=== PATIENT | male | born 1940 | race Caucasian/White ===

== ENCOUNTER 2019-11-07 13:34 | Outpatient (CLI) | payer MEDICARE, MEDICAID, SELFPAY ==
--- NOTE | 2019-11-07 13:51 | USCV_ITS ---
Mendel Jansen Age: 78 Gender: M : 1940 Exam Date: 11/07/2019 14:39 Ordering Phys: Lina Ramon MD Technologist: Jono Zamudio Exam Location: [facility] [place] Indication: murmur BP: 142 / 84 HR: 71 Rhythm: Sinus Technical Quality: Fair MEASUREMENTS (Male / Female) Normal Values 2D ECHO LV Diastolic Diameter PLAX 4.1 cm 4.2 - 5.9 / 3.9 - 5.3 cm LV Systolic Diameter PLAX 2.3 cm IVS Diastolic Thickness 0.9 cm 0.6 - 1.0 / 0.6 - 0.9 cm IVS Systolic Thickness 1.1 cm LVPW Diastolic Thickness 0.7 cm 0.6 - 1.0 / 0.6 - 0.9 cm LVPW Systolic Thickness 1.1 cm LVOT Diameter 2.0 cm LV Ejection Fraction 2D Teich 75.9 % LV Ejection Fraction MOD 2C 65.7 % LV Ejection Fraction 2C AL 68.1 % LA Diameter 3.7 cm LA Width 3.1 cm LA Height 4.8 cm RA Width 2.8 cm RA Height 4.0 cm Aorta at Sinotubular Diameter 2.3 cm M-MODE LV Diastolic Diameter MM 4.7 cm 4.2 - 5.9 / 3.9 - 5.3 cm LV Systolic Diameter MM 3.1 cm LV Ejection Fraction MM Teich 64.8 % IVS Diastolic Thickness MM 0.6 cm 0.6 - 1.0 / 0.6 - 0.9 cm IVS Systolic Thickness MM 1.1 cm LVPW Diastolic Thickness MM 0.8 cm 0.6 - 1.0 / 0.6 - 0.9 cm LVPW Systolic Thickness MM 1.4 cm RV Diastolic Diameter MM 1.1 cm Aortic Annulus Diameter 3.0 cm LA Ao Ratio MM 1.2 MV E Point Septal Separation 0.6 cm DOPPLER AV Peak Velocity 175.0 cm/s LVOT Peak Velocity 130.0 cm/s AV Area Cont Eq vti 2.5 cm squared AV Area Cont Eq pk 2.4 cm squared MV Area PHT 3.1 cm squared Mitral E to A Ratio 0.8 MV E' Velocity 8.0 cm/s Mitral E to MV E' Ratio 10.6 Mitral E to LV E' Lateral Ratio 10.6 Mitral E to LV E' Septal Ratio 10.6 TR Peak Velocity 149.0 cm/s TR Peak Gradient 8.8 mmHg TV Peak E Velocity 64.0 cm/s Right Atrial Pressure 3.0 mmHg Pulmonary Artery Systolic Pressu 11.9 mmHg FINDINGS Left Ventricle Normal left ventricular size and systolic function, EF 73 %. Mild left ventricular hypertrophy. No regional wall motion abnormalities. Right Ventricle Normal right ventricular size and systolic function. Right Atrium Normal right atrial size. Left Atrium Normal left atrial size. Mitral Valve Thickened mitral valve. Mild mitral annular calcification. Aortic Valve Thickened aortic valve. Aortic valve sclerosis. Tricuspid Valve No gross abnormalities noted Pulmonic Valve Pulmonic valve not well visualized. Pericardium No pericardial effusion. Aorta Normal aortic annulus size. CONCLUSIONS Normal left ventricular size and systolic function, EF 73 %. Mild left ventricular hypertrophy. No regional wall motion abnormalities. Thickened mitral valve. Mild mitral annular calcification. Aortic valve sclerosis. There is no pericardial effusion. No significant stenotic or regurgitant lesions There are no intracardiac masses. No previous study is available for comparison. Dr Sabi White MD FAC (Electronically Signed) Final Date: 08 November 2019 14:03 S
== END 2019-11-07 13:35 | disposition home or self-care (01) ==
LOC: RAD 13:46
PROVIDERS: Family Provider Internal Medicine; PCP Internal Medicine; Visit Provider Internal Medicine
DX: I08.3 Combined rheumatic disorders of mitral, aortic and tricuspid valves (principal); R01.1 Cardiac murmur, unspecified
CPT/HCPCS: 93306

== ENCOUNTER 2021-04-30 12:33 | Outpatient (CLI) | payer MEDICARE, MEDICAID, SELFPAY ==
--- NOTE | 2021-04-30 12:00 | CT_ITS ---
WS: [id number] CT ABDOMEN PELVIS TECHNIQUE: Contrast-enhanced CT of the abdomen and pelvis with coronal and sagittal reformatted image s. CLINICAL INFORMATION: LLQ PAIN AND ABNORMAL WEIGHT LOSS COMPARISON: None. DLP: 1041.[address] scans at [facility] use at least one of these dose optimization techniques: automat ed exposure control; mA and/or kV adjustment per patient size (includes targeted exams where dose is matched to clinical indication); or iterative reconstruction. FINDINGS: Small right pleural effusion with compressive atelectasis right lower lobe. Patchy infiltrates in the right lower lobe consistent with pneumonia. Tiny amount of patchy infiltrate or atelectasis left low er lobe. Small amount of fluid along the right fissure. Partially visualized small pericardial effusion. Diffuse fatty infiltration of the liver. Left hepati c cyst measuring 11 mm. Additional adjacent tiny suspected hepatic cyst measuring 3.8 mm and too smal l to characterize. A few additional tiny low-attenuation lesions right hepatic lobe too small to brittaney acterize but may represent hepatic cysts. A few prominent but not pathologically enlarged retrocrural lymph nodes. Normal portal vein and splenic vein. A few low-attenuation lesions in the inferior aspect of the sple en nonspecific but may represent combination of hepatic cysts, hemangiomas, sequelae of prior infarc ts or prior laceration. No surrounding fluid. Small esophageal hiatal hernia. Normal pancreas. Gallbladder is normal in appearance. Adrenal glands are normal. Normal renal parenchymal enhancement. No hydronephrosis. Small bilateral r enal cysts largest lower pole left kidney measuring 2.7 cm. Moderate aortic atheromatous disease. Infrarenal abdominal aortic aneurysm with peripheral mural thro mbus with calcification. Aneurysm measures approximately 3.4 x 3.6 x 5.5 CM AP x transverse x cranioc audal. Slightly prominent and shotty periotic lymph nodes measuring 8 to 9 mm in maximum dimension. T hese are nonspecific but may be reactive not pathologically enlarged. Urine distended bladder with prominent prostate measuring 4.1 cm. Correlation PSA. Evidence of bladde r outlet obstruction with bladder wall thickening No evidence of small or large bowel obstruction. No rmal lumbar spine. CT/CT abdomen pelvis w con* [id number] IMPRESSION: 1. Small right pleural effusion with patchy infiltrates in right lower lobe co nsistent with pneumonia. 2. Diffuse fatty infiltration of the liver with a few low-attenuation lesions likely hepatic cysts and/or hemangiomas. This can be followed up with ultrasoun d. 3. Infrarenal lobulated abdominal aortic aneurysm measuring 3.4 x 3.6 x 5.5 cm AP by transverse by craniocaudal. Dense vascular calcification with peripheral mural thrombus. 4. Small pericardial effusion. 5. Small esophageal hiatal hernia. 6. Left renal cyst measuring 2.7 cm. 7. Low-attenuation lesions in the inferior aspect of the spleen nonspecific bu t may represent a combination of hepatic cysts, hemangiomas, or sequelae from p rior infarcts or laceration. No surrounding fluid. Ultrasound may be helpful in further evaluation. 8. Urine distended bladder with prominent prostate measuring 4.1 cm. Correlati on PSA. Evidence of bladder outlet obstruction with bladder wall thickening. 9. Slightly prominent and shotty periotic lymph nodes measuring 8 to 9 mm in m aximum dimension. These are nonspecific but may be reactive not pathologically enlarged. This could be followed up in 3 months with contrast-enhanced CT abdom en pelvis.
[2021-04-30] MEDS: iohexol 300 mg/mL 50 mL Btl PO (13:45)
[2021-04-30] MEDS: iohexol 300 mg/mL 100 mL Btl IV (13:52)
== END 2021-04-30 12:34 | disposition home or self-care (01) ==
LOC: RADWPI 12:41
PROVIDERS: PCP Internal Medicine; Visit Provider Internal Medicine
DX: R10.32 Left lower quadrant pain (principal); R63.4 Abnormal weight loss; J90 Pleural effusion, not elsewhere classified; K76.0 Fatty (change of) liver, not elsewhere classified; I71.4 Abdominal aortic aneurysm, without rupture; I31.3 Pericardial effusion (noninflammatory); N28.1 Cyst of kidney, acquired; N40.0 Benign prostatic hyperplasia without lower urinary tract symptoms
CPT/HCPCS: 74177; Q9967

== ENCOUNTER 2021-05-06 09:55 | Inpatient (IN) | payer MEDICARE, MEDICAID, SELFPAY ==
[2021-05-06] VITALS (14 sets, daily range): BP systolic 82–134; BP diastolic 50–78; PULSE 104–117; RESP 16–26; TEMP 36.6–36.9; O2SAT 84–98; BMI 18.8
--- NOTE | 2021-05-06 10:04 | XR_ITS ---
WS: [id number] Portable AP upright chest, 05/06/2021 Clinical Data: dyspnea/cough Comparison: Portable chest, 09/12/2011. Findings: There is a 4.0 cm right hilar mass with peripheral linear opacities throughout the right matthew ng. The left lung is normal. The heart is not enlarged. The aortic arch and descending aorta show sadiq cification and tortuosity. No pneumothorax or pleural effusions are seen. Monitor leads are on the ch est wall. There are surgical clips in the left supraclavicular area. XR/XR chest 1V portable [id number] Impression: 1. 4.0 cm right hilar mass with peripheral linear opacities which could represe nt obstructive pneumonitis. 2. Recommend CT chest.
--- NOTE | 2021-05-06 10:05 | ECG_ITS ---
[facility] Test Date: 2021-05-06 Pat Name: Mendel Jansen Department: Room: Gender: Male Grizzlyman: : 1940 Requested By: Jerry Hoskins Order Number: [id number] Rogelio MD: Bettie York M.D. Measurements Intervals [place] Rate: 111 P: 66 SC: 158 QRS: 51 QRSD: 92 T: 61 QT: 328 QTc: 448 Interpretive Statements SINUS TACHYCARDIA WITH OCCASIONAL SUPRAVENTRICULAR PREMATURE COMPLEXES No previous ECG available for comparison Electronically Signed On 05-06-2021 21:45:17 CDT by Bettie York M.D. [id number]
--- NOTE | 2021-05-06 10:19 | ED_ITS ---
HPI - Altered Mental Status General: Chief Complaint: Altered Mental Status Stated Complaint: AMS Time Seen by Provider: 05/06/21 10:03 History of Present Illness: HPI narrative: 80-year-old male presents emergency room via EMS. He evidently had called his doctor's office today seemed very confused so they called EMS to do health and welfare check and he was brought into the ER. He denies any chest pain he denies any abdominal pain he denies any discomfort at all he is aware the fact that he is somewhat confused cannot give me any more specifics on that. He denies any recent trauma. No cough fever sweats chills diarrhea nausea or vomiting. MD complaint: altered mental status and confusion Onset (ago): unknown Timing confirmed by: other (PCP office) Severity: moderate Consistency of symptoms: Unknown Associated symptoms: Deny auditory hallucinations, visual hallucinations, delusions, depression or racing thoughts Review of Systems Const: Denies: fever(s), chills, body aches, change in appetite, fatigue or malaise ENMT: Denies: throat pain, ear or mastoid pain, nasal discharge or nasal congestion Card: Denies: chest pain, edema, dyspnea on exertion or orthopnea Resp: Denies: dyspnea, productive cough or non-productive cough GI: Denies: abdominal pain, nausea, vomiting, hematemesis, coffee ground emesis, diarrhea, constipation, bloating, hematochezia or melena : Denies: flank pain, dysuria, urinary frequency or urinary urgency Skin/Breast: Denies: rash or pruritus Psych: Denies: depression, visual hallucinations or auditory hallucinations [facility] ED PFSH: Medical History Abdominal aortic aneurysm (AAA) 30 to 34 mm in diameter Hyperlipidemia Hypertension Metabolic acidosis Family History Denies family history of Diabetes Chronic kidney disease (CKD) Social History Smoking and tobacco status: former smoker Alcohol intake: former Lives independently: Yes Household members: none Housing: House Physical Exam Const: COMMON NORMALS: no acute distress GENERAL APPEARANCE: cooperative and comfortable HENMT: COMMON NORMALS: normocephalic, atraumatic, hearing grossly normal bilaterally and external ears normal HEAD & SCALP: normocephalic and atraumatic EXTERNAL EAR: Yes external ears normal Eye: COMMON NORMALS: Equal, round and reactive pupils present, EOMs intact bilaterally, conjunctivae normal and no scleral icterus CONJUNCTIVA: Yes conjunctivae normal PUPIL: Yes Equal, round and reactive pupils present Neck/C-Spine: COMMON NORMALS: full ROM, no lymphadenopathy, supple and no JVD Lymph: LYMPHATIC: no lymphadenopathy noted and no lymphedema noted Resp: COMMON NORMALS: normal respiratory effort, No retractions, No use of a ccessory muscles and clear to auscultation bilaterally AUSCULTATION: clear to auscultation bilaterally Cardio: COMMON NORMALS: no JVD, regular rate, regular rhythm and No murmurs present (Cardio) RATE: regular rate RHYTHM: regular rhythm GI: COMMON NORMALS: Soft to palpation and No hepatosplenomegaly present AUSCULTATION: Yes normoactive bowel sounds PALPATION: Yes Soft to palpation, No Tenderness to palpation present (GI), No Guarding due to palpation present (GI) and Yes No hepatosplenomegaly present Extremity: COMMON NORMALS: normal to inspection, capillary refill normal, no clubbing, cyanosis or edema, no calf tenderness and no pedal edema Psych: THOUGHT CONTENT: No delusions Skin: COMMON NORMALS: no rashes or lesions noted GENERAL SKIN EXAM: no rashes or lesions noted Course Vital Signs: Vital signs: Vital Signs Temperature 97.9 F 05/09/21 15:40 Pulse Rate 100 05/09/21 16:04 Respiratory Rate 25 H 05/09/21 15:40 Blood Pressure 116/63 05/09/21 15:40 Pulse Oximetry 92 05/09/21 15:40 MDM - Altered Mental Status MDM Narrative: Medical decision making narrative: Cussed with Dr. Long admit for sepsis cystitis acute urinary retention acute kidney injury pneumonia metabolic encephalopathy. Lab Data: Attestation: I reviewed the patient's lab results. Labs: Lab Results 05/06/21 05/06/21 05/06/21 Range/Units 10:26 10:26 10:26 WBC 14.0 H (4.0-10.0) 10^3/ uL RBC 4.08 L (4.1-5.3) 10^6/u L Hgb 12.2 (11.7-16.6) g/dL Hct 38.4 L (42.0-52.0) % MCV 94.1 H (80-94) fL MCH 29.9 (28.0-34.0) pg MCHC 31.8 (30.0-36.0) g/dL RDW 13.6 (12.1-15.1) % Plt Count 224 (130-400) 10^3/c mm MPV 11.6 H (7.4-10.4) fL Neut % (Auto) 82.0 % Lymph % (Auto) 8.1 % Crenshaw % (Auto) 7.1 % Eos % (Auto) 0.5 % Baso % (Auto) 0.5 % Neut # (Auto) 11.52 H (1.8-7.7) 10^3/u L Lymph # (Auto) 1.1 (0.8-4.8) 10^3/u L Crenshaw # (Auto) 1.0 H (0.2-0.9) 10^3/u L Eos # (Auto) 0.1 (0.0-0.8) 10^3/u L Baso # (Auto) 0.1 (0.0-0.1) 10^3/u L Nucleated RBC % (a uto) 0 % Nucleated RBCs # 0.0 /100WBC Specimen Type Sample Site ABG pH (7.35-7.45) ABG pCO2 (35-45) mmHg ABG pO2 (80.0-100.0) mmH g ABG HCO3 (22-26) mmol/L ABG O2 Saturation ABG Base Excess (-2.0-2.0) mmol/ L Agustín Test A-a O2 Gradient (5-10) mmHg Hematocrit (42-52) % Hgb O2 Saturation (95-100) % Carboxyhemoglobin (0.4-20.1) %THgb Methemoglobin (0.4-1.5) % Total Hemoglobin (14-18) g/dL Ionized Calcium (1.1-1.4) mmol/L O2 Delivery Device FiO2 % Housing And Residence Life Director ID Sodium 134 L (136-145) mmol/L Potassium 3.9 (3.5-5.1) mmol/L Chloride 96 L (98-107) mmol/L Carbon Dioxide 17 L (22-29) mmol/L Anion Gap 24.9 H (5-19) BUN 123 H* (8-23) mg/dL Creatinine 3.0 H (0.7-1.2) mg/dL GFR Calculation Not Reportable Glucose 107 (65-115) mg/dL Calculated Osmolal ity 318 H (285-295) mOsm/k g Lactic Acid (0.5-2.2) mmol/L Calcium 8.0 L (8.5-10.5) mg/dL Total Bilirubin 0.5 (0.15-1.2) mg/dL AST 14 (0-40) U/L ALT 10 (0-41) U/L Alkaline Phosphata se 89 (40-130) IU/L Creatine Kinase 68 (39-308) U/L Troponin T Baselin e 677 H* (0-15) ng/L Troponin T 120 Min [place] (0-15) ng/L Delta Troponin T (0-10) ABS# Total Protein 7.6 (6.6-8.7) g/dL Albumin 3.1 L (3.5-5.2) g/dL Globulin 4.5 (1.3-4.6) g/dL Lipase 96 H (13-60) U/L Urine Color (Yellow) Urine Appearance (CLEAR) Urine pH (5-7) Ur Specific Gravit y (1.005-1.030) Urine Protein (Negative) Urine Glucose (UA) (Normal) Urine Ketones (Negative) Urine Blood (Negative) Urine Nitrate (Negative) Urine Bilirubin (Negative) Urine Urobilinogen (Negative) mg/dL Ur Leukocyte Latasha ase (Negative) Urine RBC (0-2) /hpf Urine WBC (0-5) /hpf Ur Squamous Epith Cells (0-5) /hpf Amorphous Sediment Urine Bacteria (NONE) /hpf Ur Random Sodium mmol/L Ur Random Potassiu m mmol/L Ur Random Chloride mmol/L Urine Creatinine (39-259) mg/dL Urine Opiates Scre en (Negative) ng/mL Ur Barbiturates Sc reen (Negative) ng/mL Ur Phencyclidine S crn (Negative) ng/mL Ur Amphetamines Sc reen (Negative) ng/mL U Benzodiazepines Scrn (Negative) ng/mL Urine Cocaine Scre en (Negative) ng/mL U Marijuana (THC) Screen (Negative) ng/mL Serum Ketones (Negative) 05/06/21 05/06/21 05/06/21 Range/Units 10:26 10:26 10:42 WBC (4.0-10.0) 10^3/ uL RBC (4.1-5.3) 10^6/u L Hgb (11.7-16.6) g/dL Hct (42.0-52.0) % MCV (80-94) fL MCH (28.0-34.0) pg MCHC (30.0-36.0) g/dL RDW (12.1-15.1) % Plt Count (130-400) 10^3/c mm MPV (7.4-10.4) fL Neut % (Auto) % Lymph % (Auto) % Crenshaw % (Auto) % Eos % (Auto) % Baso % (Auto) % Neut # (Auto) (1.8-7.7) 10^3/u L Lymph # (Auto) (0.8-4.8) 10^3/u L Crenshaw # (Auto) (0.2-0.9) 10^3/u L Eos # (Auto) (0.0-0.8) 10^3/u L Baso # (Auto) (0.0-0.1) 10^3/u L Nucleated RBC % (a uto) % Nucleated RBCs # /100WBC Specimen Type Arterial Sample Site Brachial, right ABG pH 7.39 (7.35-7.45) ABG pCO2 27.9 L (35-45) mmHg ABG pO2 59.6 L (80.0-100.0) mmH g ABG HCO3 17.0 L (22-26) mmol/L ABG O2 Saturation 90.1 ABG Base Excess -6.5 L (-2.0-2.0) mmol/ L Agustín Test N/a A-a O2 Gradient 7.2 (5-10) mmHg Hematocrit 38.8 L (42-52) % Hgb O2 Saturation 88.6 L (95-100) % Carboxyhemoglobin 1.0 (0.4-20.1) %THgb Methemoglobin 0.6 (0.4-1.5) % Total Hemoglobin 12.6 L (14-18) g/dL Ionized Calcium 1.1 (1.1-1.4) mmol/L O2 Delivery Device Room air FiO2 21.0 % Housing And Residence Life Director ID Amh Sodium 139.0 (136-145) mmol/L Potassium 3.9 (3.5-5.1) mmol/L Chloride (98-107) mmol/L Carbon Dioxide (22-29) mmol/L Anion Gap (5-19) BUN (8-23) mg/dL Creatinine (0.7-1.2) mg/dL GFR Calculation Glucose 120.0 H (65-115) mg/dL Calculated Osmolal ity (285-295) mOsm/k g Lactic Acid 2.3 H (0.5-2.2) mmol/L Calcium (8.5-10.5) mg/dL Total Bilirubin (0.15-1.2) mg/dL AST (0-40) U/L ALT (0-41) U/L Alkaline Phosphata se (40-130) IU/L Creatine Kinase (39-308) U/L Troponin T Baselin e (0-15) ng/L Troponin T 120 Min [place] (0-15) ng/L Delta Troponin T (0-10) ABS# Total Protein (6.6-8.7) g/dL Albumin (3.5-5.2) g/dL Globulin (1.3-4.6) g/dL Lipase (13-60) U/L Urine Color (Yellow) Urine Appearance (CLEAR) Urine pH (5-7) Ur Specific Gravit y (1.005-1.030) Urine Protein (Negative) Urine Glucose (UA) (Normal) Urine Ketones (Negative) Urine Blood (Negative) Urine Nitrate (Negative) Urine Bilirubin (Negative) Urine Urobilinogen (Negative) mg/dL Ur Leukocyte Latasha ase (Negative) Urine RBC (0-2) /hpf Urine WBC (0-5) /hpf Ur Squamous Epith Cells (0-5) /hpf Amorphous Sediment Urine Bacteria (NONE) /hpf Ur Random Sodium mmol/L Ur Random Potassiu m mmol/L Ur Random Chloride mmol/L Urine Creatinine (39-259) mg/dL Urine Opiates Scre en (Negative) ng/mL Ur Barbiturates Sc reen (Negative) ng/mL Ur Phencyclidine S crn (Negative) ng/mL Ur Amphetamines Sc reen (Negative) ng/mL U Benzodiazepines Scrn (Negative) ng/mL Urine Cocaine Scre en (Negative) ng/mL U Marijuana (THC) Screen (Negative) ng/mL Serum Ketones Negative (Negative) 05/06/21 05/06/21 05/06/21 Range/Units 12:28 12:30 12:30 WBC (4.0-10.0) 10^3/ uL RBC (4.1-5.3) 10^6/u L Hgb (11.7-16.6) g/dL Hct (42.0-52.0) % MCV (80-94) fL MCH (28.0-34.0) pg MCHC (30.0-36.0) g/dL RDW (12.1-15.1) % Plt Count (130-400) 10^3/c mm MPV (7.4-10.4) fL Neut % (Auto) % Lymph % (Auto) % Crenshaw % (Auto) % Eos % (Auto) % Baso % (Auto) % Neut # (Auto) (1.8-7.7) 10^3/u L Lymph # (Auto) (0.8-4.8) 10^3/u L Crenshaw # (Auto) (0.2-0.9) 10^3/u L Eos # (Auto) (0.0-0.8) 10^3/u L Baso # (Auto) (0.0-0.1) 10^3/u L Nucleated RBC % (a uto) % Nucleated RBCs # /100WBC Specimen Type Sample Site ABG pH (7.35-7.45) ABG pCO2 (35-45) mmHg ABG pO2 (80.0-100.0) mmH g ABG HCO3 (22-26) mmol/L ABG O2 Saturation ABG Base Excess (-2.0-2.0) mmol/ L Agustín Test A-a O2 Gradient (5-10) mmHg Hematocrit (42-52) % Hgb O2 Saturation (95-100) % Carboxyhemoglobin (0.4-20.1) %THgb Methemoglobin (0.4-1.5) % Total Hemoglobin (14-18) g/dL Ionized Calcium (1.1-1.4) mmol/L O2 Delivery Device FiO2 % Housing And Residence Life Director ID Sodium (136-145) mmol/L Potassium (3.5-5.1) mmol/L Chloride (98-107) mmol/L Carbon Dioxide (22-29) mmol/L Anion Gap (5-19) BUN (8-23) mg/dL Creatinine (0.7-1.2) mg/dL GFR Calculation Glucose (65-115) mg/dL Calculated Osmolal ity (285-295) mOsm/k g Lactic Acid (0.5-2.2) mmol/L Calcium (8.5-10.5) mg/dL Total Bilirubin (0.15-1.2) mg/dL AST (0-40) U/L ALT (0-41) U/L Alkaline Phosphata se (40-130) IU/L Creatine Kinase (39-308) U/L Troponin T Baselin e (0-15) ng/L Troponin T 120 Min [place] 633.6 H (0-15) ng/L Delta Troponin T -43.4 L (0-10) ABS# Total Protein (6.6-8.7) g/dL Albumin (3.5-5.2) g/dL Globulin (1.3-4.6) g/dL Lipase (13-60) U/L Urine Color Yellow (Yellow) Urine Appearance Clear (CLEAR) Urine pH 5 (5-7) Ur Specific Gravit y 1.020 (1.005-1.030) Urine Protein Trace (Negative) Urine Glucose (UA) Norm (Normal) Urine Ketones 1+ H (Negative) Urine Blood 3+ H (Negative) Urine Nitrate Positive H (Negative) Urine Bilirubin Neg (Negative) Urine Urobilinogen Norm (Negative) mg/dL Ur Leukocyte Latasha ase 1+ H (Negative) Urine RBC 5-10 H (0-2) /hpf Urine WBC 0-4 H (0-5) /hpf Ur Squamous Epith Cells 0-4 H (0-5) /hpf Amorphous Sediment Not Reportable Urine Bacteria 3+ H (NONE) /hpf Ur Random Sodium 47 mmol/L Ur Random Potassiu m 37 mmol/L Ur Random Chloride 19 mmol/L Urine Creatinine (39-259) mg/dL Urine Opiates Scre en Negative (Negative) ng/mL Ur Barbiturates Sc reen Negative (Negative) ng/mL Ur Phencyclidine S crn Negative (Negative) ng/mL Ur Amphetamines Sc reen Negative (Negative) ng/mL U Benzodiazepines Scrn Negative (Negative) ng/mL Urine Cocaine Scre en Negative (Negative) ng/mL U Marijuana (THC) Screen Negative (Negative) ng/mL Serum Ketones (Negative) 05/06/21 Range/Units 12:30 WBC (4.0-10.0) 10^3/ uL RBC (4.1-5.3) 10^6/u L Hgb (11.7-16.6) g/dL Hct (42.0-52.0) % MCV (80-94) fL MCH (28.0-34.0) pg MCHC (30.0-36.0) g/dL RDW (12.1-15.1) % Plt Count (130-400) 10^3/c mm MPV (7.4-10.4) fL Neut % (Auto) % Lymph % (Auto) % Crenshaw % (Auto) % Eos % (Auto) % Baso % (Auto) % Neut # (Auto) (1.8-7.7) 10^3/u L Lymph # (Auto) (0.8-4.8) 10^3/u L Crenshaw # (Auto) (0.2-0.9) 10^3/u L Eos # (Auto) (0.0-0.8) 10^3/u L Baso # (Auto) (0.0-0.1) 10^3/u L Nucleated RBC % (a uto) % Nucleated RBCs # /100WBC Specimen Type Sample Site ABG pH (7.35-7.45) ABG pCO2 (35-45) mmHg ABG pO2 (80.0-100.0) mmH g ABG HCO3 (22-26) mmol/L ABG O2 Saturation ABG Base Excess (-2.0-2.0) mmol/ L Agustín Test A-a O2 Gradient (5-10) mmHg Hematocrit (42-52) % Hgb O2 Saturation (95-100) % Carboxyhemoglobin (0.4-20.1) %THgb Methemoglobin (0.4-1.5) % Total Hemoglobin (14-18) g/dL Ionized Calcium (1.1-1.4) mmol/L O2 Delivery Device FiO2 % Housing And Residence Life Director ID Sodium (136-145) mmol/L Potassium (3.5-5.1) mmol/L Chloride (98-107) mmol/L Carbon Dioxide (22-29) mmol/L Anion Gap (5-19) BUN (8-23) mg/dL Creatinine (0.7-1.2) mg/dL GFR Calculation Glucose (65-115) mg/dL Calculated Osmolal ity (285-295) mOsm/k g Lactic Acid (0.5-2.2) mmol/L Calcium (8.5-10.5) mg/dL Total Bilirubin (0.15-1.2) mg/dL AST (0-40) U/L ALT (0-41) U/L Alkaline Phosphata se (40-130) IU/L Creatine Kinase (39-308) U/L Troponin T Baselin e (0-15) ng/L Troponin T 120 Min [place] (0-15) ng/L Delta Troponin T (0-10) ABS# Total Protein (6.6-8.7) g/dL Albumin (3.5-5.2) g/dL Globulin (1.3-4.6) g/dL Lipase (13-60) U/L Urine Color (Yellow) Urine Appearance (CLEAR) Urine pH (5-7) Ur Specific Gravit y (1.005-1.030) Urine Protein (Negative) Urine Glucose (UA) (Normal) Urine Ketones (Negative) Urine Blood (Negative) Urine Nitrate (Negative) Urine Bilirubin (Negative) Urine Urobilinogen (Negative) mg/dL Ur Leukocyte Latasha ase (Negative) Urine RBC (0-2) /hpf Urine WBC (0-5) /hpf Ur Squamous Epith Cells (0-5) /hpf Amorphous Sediment Urine Bacteria (NONE) /hpf Ur Random Sodium mmol/L Ur Random Potassiu m mmol/L Ur Random Chloride mmol/L Urine Creatinine 179 (39-259) mg/dL Urine Opiates Scre en (Negative) ng/mL Ur Barbiturates Sc reen (Negative) ng/mL Ur Phencyclidine S crn (Negative) ng/mL Ur Amphetamines Sc reen (Negative) ng/mL U Benzodiazepines Scrn (Negative) ng/mL Urine Cocaine Scre en (Negative) ng/mL U Marijuana (THC) Screen (Negative) ng/mL Serum Ketones (Negative) Discharge Plan Discharge Patient Disposition: Admitted As Inpatient Admit Provider: Nayan Serrano Clinical Impression: Sepsis, Acute urinary retention, Hypertension, LUCRECIA (acute kidney injury), UTI (urinary tract infection), Pneumonia, Metabolic encephalopathy, AMS (altered mental status) Condition: Stable Coding Level of Care Code ED [employer] for [employer]g Fwd Exam Comprehensive
[2021-05-06 10:36] LABS: Basophils # 0.1 10^3/uL (0.0-0.1); Basophils % 0.5 %; Eosinophils # 0.1 10^3/uL (0.0-0.8); Eosinophils % 0.5 %; Hematocrit 38.4 % (42.0-52.0); Hemoglobin 12.2 g/dL (11.7-16.6); Lymphocytes # 1.1 10^3/uL (0.8-4.8); Lymphocytes % 8.1 %; Mean Corpuscular HGB Conc 31.8 g/dL (30.0-36.0); Mean Corpuscular Hemoglobin 29.9 pg (28.0-34.0); Mean Corpuscular Volume 94.1 fL (80-94); Mean Platelet Volume 11.6 fL (7.4-10.4); Monocytes % 7.1 %; Neutrophils # 11.52 10^3/uL (1.8-7.7); Nucleated Red Blood Cells % 0 %; Platelet Count 224 10^3/cmm (130-400); Red Blood Count 4.08 10^6/uL (4.1-5.3); Red Cell Distribution Width 13.6 % (12.1-15.1)
[2021-05-06 10:54] LABS: ABG PCO2 27.9 mmHg (35-45); ABG PH Result 7.39 (7.35-7.45); Alveolar-Arterial Oxygen Gradi 7.2 mmHg (5-10); Arterial Blood Gas Hematocrit 38.8 % (42-52); Base Excess ABG -6.5 mmol/L (-2.0-2.0); Blood Gas Operator Identificat AMH; Blood Gas Sample Site Brachial, right; Blood Gas Sample Type Arterial; HGB O2 Sat 88.6 % (95-100); Ionized Calcium Level - ABG 1.1 mmol/L (1.1-1.4); Methemoglobin 0.6 % (0.4-1.5); Oxygen Device ROOM AIR; Oxygen Saturation ABG 90.1; PO2 ABG 59.6 mmHg (80.0-100.0); Potassium Level - ABG 3.9 mmol/L (3.5-5.0); Total Hemoglobin 12.6 g/dL (14-18)
[2021-05-06 10:55] LABS: Lactic Sepsis W/Reflex 2.3 mmol/L (0.5-2.2)
[2021-05-06 11:00] LABS: Alanine Aminotransferase 10 U/L (0-41); Albumin Level 3.1 g/dL (3.5-5.2); Alkaline Phosphatase 89 IU/L (40-130); Aspartate Amino Transferase 14 U/L (0-40); Carbon Dioxide 17 mmol/L (22-29); Chloride 96 mmol/L (98-107); Creatine Phosphokinase 68 U/L (39-308); Globulin 4.5 g/dL (1.3-4.6); Glucose 107 mg/dL (65-115); Lipase 96 U/L (13-60); Sodium 134 mmol/L (136-145); Total Bilirubin 0.5 mg/dL (0.15-1.2); Total Protein 7.6 g/dL (6.6-8.7)
[2021-05-06 11:01] LABS: Ketone (Acetest) Serum Negative (Negative)
[2021-05-06 11:11] LABS: Troponin(5th) Baseline 677 ng/L (0-15)
[2021-05-06 11:12] LABS: Anion Gap 24.9 (5-19); Osmolality Calculated 318 mOsm/kg (285-295); Potassium 3.9 mmol/L (3.5-5.1)
[2021-05-06 11:13] LABS: Blood Urea Nitrogen 123 mg/dL (8-23)
--- NOTE | 2021-05-06 11:14 | PC.PHAR ---
PT UNABLE TO VERIFY MEDICATIONS-THE MEDICATIONS ENTERED ARE MEDS THAT ARE ON THE PTS MED LIST FROM DR Deb GIPSON OFFICE-WELLBUTRIN XL 150MG DAILY WRITTEN ON 01/16/21 6 REFILLS IS ON THE PTS MED LIST FROM DR GIPSON OFFICE [facility] THEY HAVE THE MEDICATION ON HOLD-[facility] STATES THEY GAVE THE PT A COVID 19 SHOT (MODERNA 1ST DOSE) ON 03/06/21
--- NOTE | 2021-05-06 11:25 | CT_ITS ---
WS: [id number] CT ABDOMEN PELVIS TECHNIQUE: Noncontrast CT of the abdomen and pelvis with coronal and sagittal reformatted images. CLINICAL INFORMATION: acute renal failure COMPARISON: CT April 30, 2021 DLP: 817.[address] scans at [facility] use at least one of these dose optimization techniques: automat ed exposure control; mA and/or kV adjustment per patient size (includes targeted exams where dose is matched to clinical indication); or iterative reconstruction. FINDINGS: Small right pleural effusion with compressive atelectasis right lower lobe. Small pericardial effusio n. Patchy infiltrates in right lower lobe. Recommend correlation for pneumonia. Noncontrast liver is normal. A few hepatic cysts. Noncontrast spleen is normal. Low-attenuation lesio n lower pole spleen is unchanged. Normal GE junction. Fatty atrophy of the pancreas. Infrarenal abdom inal aortic aneurysm is unchanged measuring 3.4 x 3.6 cm AP by transverse. Adrenal glands are normal. No hydronephrosis in either kidney. Both ureters are decompressed. No obst ructing renal or ureteral calculi. Markedly distended urinary bladder with contrast. Enlarged prostat e measuring 4 cm with calcification. Recommend correlation for bladder outlet obstruction. Vicarious excretion of contrast in the gallbladder. Previously described shotty periaortic lymph nodes and retroperitoneal lymph nodes are unchanged. No other significant changes from previous. CT/CT abdomen pelvis wo con [id number] IMPRESSION: 1. Markedly distended urinary bladder with contrast. Mild enlargement of the p rostate measuring 4 cm. 2. Noncontrast kidneys are normal in appearance. No retained contrast in the k idneys or ureters. No obstructing renal or ureteral calculi. 3. Stable 2.7 cm left renal cyst. 4. Stable infrarenal abdominal aortic aneurysm measuring 3.4 x 3.6 CM. 5. Small right pleural effusion with patchy infiltrates in right lower lobe un changed from previous. Recommend Correlation for pneumonia.
--- NOTE | 2021-05-06 11:25 | USCV_ITS ---
Mendel Jansen Age: 80 Gender: M : 1940 Exam Date: 05/06/2021 12:01 Ordering Phys: Jerry Borja DO Technologist: Jono Zamudio Exam Location: [facility] – [place], [place] Indication: elevated trop BP: / HR: Rhythm: Sinus Technical Quality: Suboptimal MEASUREMENTS (Male / Female) Normal Values FINDINGS Left Ventricle Right Ventricle Right Atrium Left Atrium Mitral Valve Aortic Valve Tricuspid Valve Pulmonic Valve Pericardium Aorta CONCLUSIONS This is a limited echocardiogram performed to assess LV systolic function LV is hyperdynamic with EF of >65%. No regional wall motion abnormalities are seen Small pericardial effusion is noted Compared with prior echocardiogram from 10/2019, small sized pericardial effusion is now noted Georges Delacruz MD (Electronically Signed) Final Date: 06 May 2021 17:07 S
--- NOTE | 2021-05-06 11:25 | CT_ITS ---
WS: [id number] CT HEAD TECHNIQUE: Noncontrast CT of the head obtained from the skullbase to the vertex. CLINICAL INFORMATION: AMS COMPARISON: CT 11 011 DLP: 1552.[address] scans at [facility] use at least one of these dose optimization techniques: automat ed exposure control; mA and/or kV adjustment per patient size (includes targeted exams where dose is matched to clinical indication); or iterative reconstruction. FINDINGS: No evidence of intracranial hemorrhage or mass effect. Ventricular system and basal cisterns are vásquez nt. Moderate small vessel changes with moderate parenchymal volume loss. Chronic infarct left lateral basal ganglia. No extra-axial fluid collections. No evidence of mass or mass effect. Normal lakhani-whi te differentiation. Mild mucosal thickening ethmoid air cells. Mastoid air cells are well aerated. CT/CT head wo con* [id number] IMPRESSION: 1. No evidence of intracranial hemorrhage or mass effect. 2. Moderate small vessel changes. Moderate parenchymal volume loss. 3. Chronic infarct left lateral basal ganglia. 4. No acute intracranial findings.
--- NOTE | 2021-05-06 12:05 | ECG_ITS ---
[facility] Test Date: 2021-05-06 Pat Name: Mendel Jansen Department: Room: Gender: Male Registered Nurse Surgical Services: : 1940 Requested By: Jerry Hoskins Order Number: [id number] Rogelio MD: Bettie York M.D. Measurements Intervals [place] Rate: 107 P: 61 ME: 158 QRS: 56 QRSD: 84 T: 43 QT: 330 QTc: 441 Interpretive Statements SINUS TACHYCARDIA ABNORMAL RHYTHM ECG WARNING: DATA QUALITY MAY AFFECT INTERPRETATION Compared to ECG 05/06/2021 10:39:13 No significant changes Electronically Signed On 05-06-2021 21:58:19 CDT by Bettie York M.D. [email or web address] a. andrew memorial hospitalTiangua Onlinekettering health [email or web address]/store/OM/[id number]
[2021-05-06 12:18] LABS: Reflex Lactate Order REFLEX LACTIC ORDERD
[2021-05-06] MEDS: levofloxacin-dextrose 5 % 500 MG/100 ML PREMIX 100 MG IV (13:01)
[2021-05-06] MEDS: sodium chloride 0.9% 1,000 ML 999 ML IV ×2 (13:01→14:40)
[2021-05-06 13:02] LABS: Bilirubin Urine Neg (Negative); Blood Urine 3+ (Negative); Glucose Urine UA Norm (Normal); Ketones Urine 1+ (Negative); Nitrate Urine Positive (Negative); Protein Urine Trace (Negative); Urine Appearance Clear (CLEAR); Urine Color Yellow (Yellow); Urobilinogen Urine Norm (Negative); pH Urine 5 (5-7)
[2021-05-06 13:03] LABS: Add Urine Culture? Yes; Add Urine Microscopic? YES; Bacteria Urine 3+ /hpf; Leukocyte Esterase Urine 1+ (Negative); Squamous Epithelial Cell Urine 0-4 /hpf (0-5); WBC Urine 0-4 /hpf (0-5)
[2021-05-06 13:25] LABS: Troponin 5 2HR 633.6 ng/L (0-15)
[2021-05-06 13:57] LABS: Amphetamines Screen Urine Negative (Negative); Barbiturates Screen Urine Negative (Negative); Benzodiazepines Screen Urine Negative (Negative); Cocaine Screen Urine Negative (Negative); Opiate Screen Urine Negative (Negative); PCP Screen Urine Negative (Negative); THC Screen Urine Negative (Negative)
[2021-05-06 14:07] LABS: Potassium, Radom Urine 37 mmol/L; Urine Random Sodium 47 mmol/L
[2021-05-06 14:08] LABS: Urine Random Chloride 19 mmol/L
[2021-05-06 14:29] LABS: Fibrinogen 163 mg/dL (174-498)
[2021-05-06 14:36] LABS: Lactic Acid level (Lactate) 1.4 mmol/L (0.5-2.2)
[2021-05-06 14:46] LABS: NT Pro B Type Natriuretic Pept 774 pg/mL (0-450); Thyroid Stimulating Hormone 4.02 uIU/mL (0.27-4.20)
[2021-05-06 14:48] LABS: D Dimer >= 20.00 ug/mIFEU (0-0.59)
[2021-05-06 14:57] LABS: C Reactive Protein 74.5 mg/L (0.0-4.9); Creatine Phosphokinase 65 U/L (39-308); Magnesium 2.8 mg/dL (1.7-2.3)
--- NOTE | 2021-05-06 15:23 | PM.HP ---
Providers/Chief Complaint Admitting Physician: Nayan Serrano MD Primary Care Provider: Lina Ramon MD Chief Complaint: AMS History of Present Illness Mendel Jansen is a 80 year old male with past medical history of hypertension, hyperlipidemia ER today via EMS. Patient is a poor historian. Patient states he has been having nausea, vomiting for last 3 days along with few episodes of diarrhea. Last episode of vomiting was last night. Denies any dysuria, chest pain, headache, runny nose. States he has been having cough on and off for last 1 week. Complaining of occasional chills. Denies any fever at home. He states his primary care provider had told him to call the office if his blood pressure was low and today morning his systolic blood pressure was down to 109 so he called their office. As per the ER physician documentation 's office called EMS due to health and welfare check and patient was brought to the ER because of found confused. Patient states he received both the doses of COVID-19 vaccination. Denies any sick contacts. States he lives by himself. He states his brother will be his healthcare proxy and is in case he is not able to make his own decisions. Blood work in the ER showed a white count of 14,000, hemoglobin 12.2, sodium of 134, chloride third 96, creatinine of 3, BUN of 123, lactate of 2.3, magnesium of 2.8, baseline troponin of 677 coming down to 633 with a delta of -43 and 2 hours, lipase of 96, UA positive for nitrite, 1+ leuk esterase. ABG showing pH of 7.39, PCO2 of 59.6 on room air, PCO2 27.9. Review of Systems General: Reports: 10 or more systems reviewed and unremarkable except in HPI and below Const: Denies: fever(s), chills, body aches, change in appetite, change in weight, malaise, night sweats, diaphoresis, change in sleep pattern, daytime sleepiness or snoring Eyes: Denies: change in vision, blurry vision, photophobia, eye discomfort or eye discharge ENMT: Denies: throat pain, enlarged tonsils, hoarseness, mouth pain, oral sores, dry mouth, tinnitus, nasal congestion or post nasal drip Card: Denies: chest pain, palpitations, irregular heart rhythm, edema, swelling of feet/ankles, lightheadedness, syncope, pre-syncope, dyspnea on exertion, orthopnea, leg pain with exertion or acrocyanosis Resp: Denies: dyspnea, productive cough, non-productive cough, wheezing, stridor, pain on inspiration, change in phlegm color, hemoptysis or chest congestion GI: Denies: abdominal pain, nausea, vomiting, hematemesis, coffee ground emesis, dysphagia, heartburn, diarrhea, constipation, bloating, GI cramping, change in bowel habits, pain on defecation, hematochezia or melena : Denies: flank pain, difficulty urinating, dysuria, urinary frequency, urinary urgency, urinary hesitancy, urinary dribbling, difficulty starting urination, change in urine stream, nocturia or hematuria Musc: Denies: neck pain, back pain, extremity pain, joint pain, joint swelling, joint redness, joint stiffness or limited range of motion Neuro: Denies: headache(s), numbness in extremities, weakness in extremities, sensory changes, lack of coordination, difficulty walking, frequent falls, dizziness, vertigo, confusion, Slurred speech present, difficulty communicating thoughts or seizure-like activity Psych: Denies: anxiety, depression, mood swings, panic attacks, hopelessness or irritability Endo: Denies: polyuria, polydipsia, tired all the time, cold intolerance, excessive sweating, flushing or heat intolerance Gerardo/Lymph: Denies: easy bruising or easy bleeding All/Imm: Denies: tongue swelling, facial swelling or acute wheezing Medications/Allergies Home Medications Medication Instructions Recorded Confirmed Last Taken Type Fish Oil 1 cap PO DAILY 05/06/21 05/06/21 Unknown History amlodipine 5 mg PO DAILY 05/06/21 05/06/21 Unknown History aspirin [Aspir-81] 81 mg PO DAILY 05/06/21 05/06/21 Unknown History chlorthalidone 25 mg PO DAILY 05/06/21 05/06/21 Unknown History lisinopril 20 mg PO BID 05/06/21 05/06/21 Unknown History lovastatin 40 mg PO DAILY 05/06/21 05/06/21 Unknown History Allergies Allergy/AdvReac Type Severity Reaction Status Date / Time No Known Allergies Allergy Verified 05/06/21 10:06 PFSH Acute PFSH: Medical History (Updated 05/06/21 @ 15:36 by Nayan Serrano MD) Abdominal aortic aneurysm (AAA) 30 to 34 mm in diameter Hyperlipidemia Hypertension Family History (Updated 05/06/21 @ 15:34 by Nayan Serrano MD) Denies family history of Diabetes Chronic kidney disease (CKD) Social History (Updated 05/06/21 @ 15:35 by Nayan Serrano MD) Smoking and tobacco status: former smoker Alcohol intake: former Substance/Drug Use: never Lives independently: Yes Household members: none Housing: House Vitals/I&O/Wt Last Vital Signs Temp 97.8 F 05/06/21 09:56 Pulse 108 H 05/06/21 14:12 Resp 21 H 05/06/21 14:12 BP 134/57 05/06/21 14:12 Pulse Ox 94 05/06/21 14:12 05/06/21 05/06/21 05/06/21 06:59 14:59 22:59 Intake Total 1100 / 1100 Balance 1100 / 1100 Weight last 48 hrs Weight 54.431 kg Physical Exam Narrative: EXAM NARRATIVE: General: No acute distress, sluggish, pleasantly confused, AO x2, tangential thoughts HEENT: PERRLA, pupils bilaterally equal and reactive Chest: Normal vesicular breath sounds, occasional rhonchi present on the right side, fine crackles present at the bases, equal good air entry bilaterally CVS: S1-S2 regular, no murmurs,tachycardia, no gallops, no rubs Abdomen: Soft, nontender, no organomegaly, bowel sounds present Neuro: No focal deficits, no facial deformity, AO x3, power 5/5 in all limbs Urinary Catheter Management^: Dela Cruz: Cath Placed During This Visit: yes Urinary Catheter Date of Insertion: 05/06/21 Urinary Catheter Time of Insertion: 12:31 Data : 05/06/21 10:26 05/06/21 10:26 Micro: Microbiology 05/06/21 12:28 Blood Culture - Preliminary Blood SPECIMEN COLLECTED 05/06/21 10:26 Blood Culture - Preliminary Blood SPECIMEN COLLECTED A&P Assessment and plan (1) Sepsis: Status: Acute (2) Metabolic encephalopathy: Status: Acute (3) AMS (altered mental status): Status: Acute (4) Pneumonia: Status: Acute (5) UTI (urinary tract infection): Status: Acute (6) LUCRECIA (acute kidney injury): Status: Acute (7) Metabolic acidosis: Status: Acute (8) Acute urinary retention: Status: Acute (9) Elevated troponin: Status: Acute (10) Elevated d-dimer: Status: Acute (11) Hyperlipidemia: Status: Acute (12) Hypertension: Status: Acute Additional A&P Information 74-year gentleman with no significant past medical history other than hypertension hyperlipidemia presented to the ER today via EMS in confused state found to have a creatinine of 3 and acute urinary retention. Sepsis: Ruled in because of tachycardia, leukocytosis, elevated lactate, altered mental status and acute kidney injury. Most likely secondary to UTI and pneumonia. Urine studies positive for leuk esterase and nitrate. Check blood culture, urine culture, procalcitonin, sputum culture, urine Legionella, bacterial antigen, rapid flu swab, MRSA swab. Check Covid antigen and PCR. Isolation precaution. Check inflammatory markers including CRP, CPK, ferritin, LDH, ESR. Advair, Spiriva. Start patient on ceftriaxone and azithromycin to go home with acquired pneumonia. Keep mean arterial pressure 65, saturation over 92%. Altered mental status: Most likely metabolic encephalopathy from uremia, possible sepsis. Frequent reorientation. LUCRECIA: Most likely secondary urinary retention, dehydration along with home medication chlorthalidone and lisinopril.. Patient has a Dela Cruz catheter. Check urine creatinine, urine lites, urine eosinophils. CT abdomen pelvis negative for obstructive nephropathy. Consistent with prostatomegaly. Medical reconciliation done for nephrotoxic drugs. Start on gentle hydration with normal saline 75 cc/h. Repeat BMP daily for now. Strict input output charting. Start patient on Flomax 0.4 daily. Check PSA. Patient will need to follow-up with Dr. Ross as an outpatient. Metabolic high anion gap acidosis: Most likely secondary to acute kidney injury and elevated lactate. Treatment as above. Elevated troponin: Denies any chest pain. Most likely secondary to LUCRECIA. Troponin cycle. Hypertension: Goal blood less than 140/93. For now continue home medication of amlodipine 5 mg. For now hold off on lisinopril chlorthalidone given LUCRECIA. Elevated D-dimer: Could be secondary to sepsis. Cannot rule out pulmonary embolism or DVT. Unfortunately cannot do CTA because of LUCRECIA. Monitor oxygen saturation. Check lower limb Dopplers. Check iron panel, ferritin, TSH, HbA1c, lipid panel. We will request medical documentation from PCPs office. CODE STATUS: Patient states he does not want to be on life support and would not want chest compressions. Allow natural . His healthcare proxy will be his brothers. Cardiac diet. Heparin 5000 every 12 hourly. Famotidine for PUD prophylaxis Attestations Medical Necessity Statement*: Admission for more than 2 midnights for ongoing sepsis, LUCRECIA, high anion gap metabolic acidosis, altered mental status Time Spent in Patient Care: Greater than 35 minutes (>than 50% of time spent in counselling and/or direct pt care on unit). Coding Level of Care Code Acute Radar Air Traffic Controller for Chg Fwd Diagnoses Sepsis A41.9 Metabolic encephalopathy G93.41 AMS (altered mental status) R41.82 Pneumonia J18.9 UTI (urinary tract infection) N39.0 LUCRECIA (acute kidney injury) N17.9 Metabolic acidosis E87.2 Acute urinary retention R33.8 Elevated troponin R77.8 Elevated d-dimer R79.89 Hyperlipidemia E78.5 Hypertension I10
[2021-05-06 15:26] LABS: Iron 23 ug/dL (59-158); Percent Saturation 13.7 % (20-50); Total Iron Binding Capacity 167 mcg/dl; Unsaturated Iron Binding 144 ug/dL (112-347)
[2021-05-06 15:39] LABS: Ferritin 2500 ng/mL (30-400)
[2021-05-06 15:40] LABS: Lactate Dehydrogenase 282 U/L (135-225)
[2021-05-06 16:00] LABS: Procalcitonin > 100.00 ng/mL (0-0.5)
--- NOTE | 2021-05-06 16:05 | ECG_ITS ---
[facility] Test Date: 2021-05-06 Pat Name: Mendel Jansen Department: Room: 102 Gender: Male Cook Italian Style Food: : 1940 Requested By: Jerry Hoskins Order Number: [id number] Rogelio MD: Bettie York M.D. Measurements Intervals [place] Rate: 109 P: 60 PA: 152 QRS: 35 QRSD: 89 T: 27 QT: 330 QTc: 446 Interpretive Statements SINUS TACHYCARDIA WITH OCCASIONAL SUPRAVENTRICULAR PREMATURE COMPLEXES ABNORMAL RHYTHM ECG Compared to ECG 05/06/2021 12:14:00 No significant changes Electronically Signed On 05-06-2021 21:54:44 CDT by Bettie York M.D. [id number]
[2021-05-06 16:21] LABS: Prostate Specific Antigen 0.882 ng/mL (0-4)
[2021-05-06] MEDS: famotidine 20 mg/2 mL INJ IVP (16:25)
[2021-05-06] MEDS: cefTRIAXone 1,000 MG in sodium chloride 0.9% (plus) 100 ML 200 MG IV (16:25)
[2021-05-06] MEDS: heparin 5,000 unit/mL INJ 1 mL 5000 UNIT SUBCUT (16:26)
[2021-05-06 17:24] LABS: Troponin 5 6HR 476.5 ng/L (0-15)
[2021-05-06] MEDS: ferrous gluconate 324 mg Tablet PO (18:49)
[2021-05-06] MEDS: sodium chloride 0.9% 1,000 ML 75 ML IV (18:49)
[2021-05-06] MEDS: tamsulosin 0.4 mg Capsule PO (18:49)
[2021-05-06 19:46] LABS: Influenza A by IFA Negative (Negative); Influenza B by IFA Negative (Negative)
[2021-05-06 19:46] LABS: SARS Covid-2 Antigen Negative (Negative)
[2021-05-07] VITALS (10 sets, daily range): BP systolic 91–102; BP diastolic 44–68; PULSE 94–110; RESP 16–27; TEMP 36.6–36.8; O2SAT 90–95
[2021-05-07] MEDS: famotidine 20 mg/2 mL INJ IVP ×2 (02:27→15:15)
[2021-05-07] MEDS: heparin 5,000 unit/mL INJ 1 mL 5000 UNIT SUBCUT ×2 (02:27→15:14)
--- NOTE | 2021-05-07 05:00 | USCV_ITS ---
Mendel Jansen Age: 80 Gender: M : 1940 Exam Date: 05/07/2021 06:02 Ordering Phys: Nayan Serrano MD Technologist: Destinee Hou Exam Location: [facility] – [place] Indication: BLE SWELLING HISTORY: Lower extremity swelling. PROCEDURES: Venous duplex imaging was performed in bilateral lower extremities. The following venous structures were evaluated: common femoral vein, profunda vein, proximal portion of the greater saphenous vein, superficial femoral vein, and the popliteal vein. In addition, the posterior tibial and peroneal trunk were evaluated. Serial compression, augmentation maneuvers, and spectral Doppler flow evaluation were performed. FINDINGS: + DVT SEEN IN RLE AT POP V INTO PTV AT CALF. ALL OTHER VEINS APPEAR PATENT. LLE NEGATIVE FOR DVT Echogenic material in the lumen of the popliteal vein which is noncompressible. Posterior tibial vein also was found to be noncompressible CONCLUSIONS Features suggestive of possible acute DVT involving the right popliteal and the proximal posterior tibial vein, causing total occlusion. No evidence of DVT in the other above-mentioned veins. Dr Sabi White MD [facility] (Electronically Signed) Final Date: 08 May 2021 08:42 S
[2021-05-07 05:46] LABS: Basophils # 0.1 10^3/uL (0.0-0.1); Basophils % 0.5 %; Eosinophils # 0.1 10^3/uL (0.0-0.8); Eosinophils % 0.7 %; Hemoglobin 10.8 g/dL (11.7-16.6); Lymphocytes # 0.9 10^3/uL (0.8-4.8); Lymphocytes % 9.4 %; Mean Corpuscular HGB Conc 31.8 g/dL (30.0-36.0); Mean Corpuscular Hemoglobin 29.8 pg (28.0-34.0); Mean Corpuscular Volume 93.9 fL (80-94); Mean Platelet Volume 10.8 fL (7.4-10.4); Monocytes # 1.2 10^3/uL (0.2-0.9); Monocytes % 12.2 %; Neutrophils # 7.16 10^3/uL (1.8-7.7); Neutrophils % 75.7 %; Nucleated Red Blood Cells % 0 %; Platelet Count 183 10^3/cmm (130-400); Red Blood Count 3.62 10^6/uL (4.1-5.3); Red Cell Distribution Width 13.6 % (12.1-15.1); White Blood Count 9.5 10^3/uL (4.0-10.0)
[2021-05-07 06:03] LABS: Alanine Aminotransferase 16 U/L (0-41); Albumin Level 2.5 g/dL (3.5-5.2); Alkaline Phosphatase 90 IU/L (40-130); Anion Gap 13.9 (5-19); Aspartate Amino Transferase 22 U/L (0-40); Blood Urea Nitrogen 76 mg/dL (8-23); Calcium 7.5 mg/dL (8.5-10.5); Carbon Dioxide 19 mmol/L (22-29); Chloride 106 mmol/L (98-107); Estmated Average Glucose 94; Globulin 4.1 g/dL (1.3-4.6); Glucose 109 mg/dL (65-115); Hemoglobin A1C 4.9 % (4.0-6.0); Osmolality Calculated 303 mOsm/kg (285-295); Potassium 3.9 mmol/L (3.5-5.1); Sodium 135 mmol/L (136-145); Total Bilirubin 0.4 mg/dL (0.15-1.2); Total Protein 6.6 g/dL (6.6-8.7)
[2021-05-07 06:06] LABS: Chol HDL Ratio 4.61 mg/dL (1.0-5.00); Cholesterol 129 mg/dL (0-200); HDL Cholesterol 28 mg/dL (60-100); LDL Cholesterol Calculated 76 mg/dL (50-129); Triglycerides 125 mg/dL (0-150); VLDL Cholestrol Calculation 25 mg/dL (0-30)
[2021-05-07] MEDS: ferrous gluconate 324 mg Tablet PO ×2 (08:35→18:04)
[2021-05-07] MEDS: tamsulosin 0.4 mg Capsule PO (08:35)
[2021-05-07] MEDS: azithromycin 250 mg Tablet 500 MG PO (08:35)
[2021-05-07] MEDS: aspirin 81 mg EC Tablet PO (08:35)
[2021-05-07] MEDS: atorvastatin 40 mg Tablet 20 MG PO (08:36)
[2021-05-07] MEDS: sodium chloride 0.9% 1,000 ML 75 ML IV (09:44)
--- NOTE | 2021-05-07 10:23 | PC.CHAP ---
Pastoral Care Encounter/Spiritual Assessment Type of Contact [] Declined pipeline inspector visit [] Patient/Family/Request visit [] Outpatient visit [] Follow-up visit [] Physician referral [] Code/Alert [] Routine visit [] Staff referral [] Actively dying [] Patient sleeping [] Family support [] [] Out of room [] Palliative care [] [] Receiving care in room [] Pre-surgical visit [] Trauma [] Long length of stay [] ICU visit [x] Other: Isolation Covid Relational/Emotional Strength [] Patient feels connected with others/family/visitors/staff [] Distress [] Loneliness/isolation [] Abandonment Spirituality of Patient [] Person of Eva [] Attends Adventist of their Eva [] Believes in Prayer [] Reads Bible or Scientology materials [] There are Spiritual issues to be addressed Outside Sales Representative Insurance Interventions [] Prayer [] Active listening [] Non-anxious presence [] Spiritual/emotional support [] Crisis/trauma care [] Spiritual counseling [] Bereavement support [] Provided bereavement packet [] Provided Bible/devotional materials [] Provided toy/stuffed animal, coloring book to patient or family member [] Provided Communion [] Anointing/[place] [] Salvation [] Completed spiritual assessment [] Other: Impact on Illness or Injury [] Angry [] Fearful [] Anxious [] Often cries [] Exhaustion [] Unable to work [] Unable to attend jainism [] Unable to walk/stand [] Unable to read [] Unable to drive [] Unable to eat/drink [] Unable to sleep [] Unable to be with family [] Patient intubated [] Other: Summary Isolation Covid Time spent with patient 5 mins
[2021-05-07 14:24] LABS: Coronavirus Test Green County Not Detected
--- NOTE | 2021-05-07 14:55 | P.PN_ITS ---
Subjective Subjective: Interval history: No acute events overnight. Today morning on examination blood pressures are soft. Patient sitting up in bed eating his lunch. He is a little more awake, less sluggish as compared to yesterday. Alert to himself, him being in the hospital and reason for hospitalization along with year. Complains of cough with mild expectoration. Vitals/I&O/Wt Last Vital Signs Temp 98.2 F 05/07/21 11:37 Pulse 106 H 05/07/21 11:37 Resp 19 H 05/07/21 11:37 BP 91/44 05/07/21 11:37 Pulse Ox 92 05/07/21 11:37 05/06/21 05/07/21 05/07/21 22:59 06:59 14:59 Intake Total 1700 / 2800 120 / 2920 1420 / 1420 Output Total 1300 / 1300 1000 / 2300 Balance 400 / 1500 -880 / 620 1420 / 1420 Weight last 48 hrs Weight 55.338 kg Weight 54.431 kg Physical Exam Narrative: EXAM NARRATIVE: General: No acute distress, sluggish, pleasantly confused, AO x2, tangential thoughts HEENT: PERRLA, pupils bilaterally equal and reactive Chest: Normal vesicular breath sounds, occasional rhonchi present on the right side, fine crackles present at the bases, equal good air entry bilaterally CVS: S1-S2 regular, no murmurs,tachycardia, no gallops, no rubs Abdomen: Soft, nontender, no organomegaly, bowel sounds present Neuro: No focal deficits, no facial deformity, AO x3, power 5/5 in all limbs Urinary Catheter Management^: Dela Cruz: Cath Placed During This Visit: yes Urinary Catheter Date of Insertion: 05/06/21 Urinary Catheter Time of Insertion: 12:31 Data : 05/07/21 05:20 05/07/21 05:20 Micro: Microbiology 05/06/21 18:00 MRSA Culture - Final Nose 05/06/21 12:28 Blood Culture - Preliminary Blood NEGATIVE TO DATE 05/06/21 12:30 Urine Culture - Preliminary Urine,Clean Catch 05/06/21 10:26 Blood Culture - Preliminary Blood NEGATIVE TO DATE 05/06/21 12:30 Bacterial Antigens - Final Urine Kidney 05/06/21 12:30 Legionella Urinary Antigen - Final Urethra A&P Assessment and plan (1) Sepsis: Status: Acute (2) Metabolic encephalopathy: Status: Acute (3) AMS (altered mental status): Status: Acute (4) Pneumonia: Status: Acute (5) UTI (urinary tract infection): Status: Acute (6) LUCRECIA (acute kidney injury): Status: Acute (7) Metabolic acidosis: Status: Acute (8) Acute urinary retention: Status: Acute (9) Elevated troponin: Status: Acute (10) Elevated d-dimer: Status: Acute (11) Hyperlipidemia: Status: Acute (12) Hypertension: Status: Acute Additional A&P Information 74-year gentleman with no significant past medical history other than hypertension hyperlipidemia presented to the ER today via EMS in confused state found to have a creatinine of 3 and acute urinary retention. Sepsis: Ruled in because of tachycardia, leukocytosis, elevated lactate, altered mental status and acute kidney injury. Most likely secondary to UTI and pneumonia. Urine studies positive for leuk esterase and nitrate. Blood culture, urine culture preliminary negative. Legionella, bacterial anti gen negative. MRSA positive. COVID-19, flu swab negative. Remove isolation precaution. Start patient on DuoNebs 4 times daily, budesonide twice daily. For now continue with ceftriaxone and azithromycin. Start patient on vancomycin as per creatinine clearance. Keep mean arterial pressure 65, saturation over 92%. Altered mental status: Resolving. Not sure what his confusion is baseline. Gabbi ielatisha does not have any formal diagnosis of dementia. Most likely metabolic encephalopathy from uremia, possible sepsis. Frequent reorientation. LUCRECIA: Most likely secondary urinary retention, dehydration along with home medication chlorthalidone and lisinopril.. Patient has a Dela Cruz catheter. Creatinine improving to 1.5 today. Urine creatinine pending. Urine lites appreciated. CT abdomen pelvis negative for obstructive nephropathy. Consistent with prostatomegaly. Medical reconciliation done for nephrotoxic drugs. Continue with normal saline 75 cc/h. Repeat BMP daily for now. Strict input output charting. Start patient on Flomax 0.4 daily. PSA within normal limits. Patient will need to follow-up with Dr. Ross as an outpatient. Once creatinine better we will do a voiding trial. Metabolic high anion gap acidosis: Resolved. Most likely secondary to acute kidney injury and elevated lactate. Elevated troponin: Denies any chest pain. Most likely secondary to LUCRECIA. Troponin cycle delta negative. Hypertension: Goal blood less than 140/90mmhg. Blood pressure soft for now. Hold off on home dose of amlodipine, lisinopril, chlorthalidone. Elevated D-dimer: Could be secondary to sepsis. Cannot rule out pulmonary embolism or DVT. Unfortunately cannot do CTA because of LUCRECIA. If kidney functions continue to improve can plan for CTA tomorrow. Monitor oxygen saturation. Lower limb Dopplers awaited. CODE STATUS: Patient states he does not want to be on life support and would not want chest compressions. Allow natural . His healthcare proxy will be his brothers. Cardiac diet. Heparin 5000 every 12 hourly. Famotidine for PUD prophylaxis Discharge planning: Given his advanced age, living by himself not sure if patient will be able to take care of himself going further. Concern about dementia. Will get physical therapy evaluation. SNF versus home meds for now. Attestations Medical Necessity Statement*: Requires further hospitalization for management of sepsis secondary to UTI and pneumonia, resolving LUCRECIA requiring IV fluids, altered mental status. Time Spent in Patient Care: Greater than 35 minutes (>than 50% of time spent in counselling and/or direct pt care on unit) . Coding Level of Care Code Acute Piano Assembler for [facility] Fwd Diagnoses Sepsis A41.9 Metabolic encephalopathy G93.41 AMS (altered mental status) R41.82 Pneumonia J18.9 UTI (urinary tract infection) N39.0 LUCRECIA (acute kidney injury) N17.9 Metabolic acidosis E87.2 Acute urinary retention R33.8 Elevated troponin R77.8 Elevated d-dimer R79.89 Hyperlipidemia E78.5 Hypertension I10
[2021-05-07] MEDS: cefTRIAXone 1,000 MG in sodium chloride 0.9% (plus) 100 ML 200 MG IV (15:15)
[2021-05-07 15:17] LABS: Procalcitonin > 100.00 ng/mL (0-0.5)
[2021-05-07 15:49] LABS: Urine Creatinine 179 mg/dL (39-259)
[2021-05-07] MEDS: vancomycin 1,000 MG in sodium chloride 0.9% 250 ML 250 MG IV (16:27)
[2021-05-07] MEDS: ipratropium-albuterol 3 mL Neb INHALATION ×2 (16:44→21:51)
[2021-05-07] MEDS: budesonide 0.5 mg/2 mL Neb INHALATION (21:51)
[2021-05-08] VITALS (8 sets, daily range): BP systolic 116–128; BP diastolic 58–73; PULSE 92–105; RESP 16–23; TEMP 36.4–36.8; O2SAT 90–95; BMI 18.9
[2021-05-08] MEDS: heparin 5,000 unit/mL INJ 1 mL 5000 UNIT SUBCUT (02:46)
[2021-05-08] MEDS: famotidine 20 mg/2 mL INJ IVP ×2 (02:46→15:34)
[2021-05-08] MEDS: sodium chloride 0.9% 1,000 ML 75 ML IV (02:48)
[2021-05-08 05:27] LABS: Basophils # 0.1 10^3/uL (0.0-0.1); Basophils % 0.9 %; Eosinophils # 0.1 10^3/uL (0.0-0.8); Eosinophils % 1.5 %; Hematocrit 32.5 % (42.0-52.0); Hemoglobin 10.5 g/dL (11.7-16.6); Lymphocytes # 0.8 10^3/uL (0.8-4.8); Lymphocytes % 9.4 %; Mean Corpuscular HGB Conc 32.3 g/dL (30.0-36.0); Mean Corpuscular Volume 95.9 fL (80-94); Mean Platelet Volume 11.7 fL (7.4-10.4); Monocytes % 11.3 %; Neutrophils # 6.39 10^3/uL (1.8-7.7); Neutrophils % 74.1 %; Nucleated Red Blood Cells % 0 %; Platelet Count 244 10^3/cmm (130-400); Red Blood Count 3.39 10^6/uL (4.1-5.3); Red Cell Distribution Width 13.8 % (12.1-15.1); White Blood Count 8.6 10^3/uL (4.0-10.0)
[2021-05-08 05:55] LABS: Alanine Aminotransferase 20 U/L (0-41); Albumin Level 2.4 g/dL (3.5-5.2); Alkaline Phosphatase 83 IU/L (40-130); Anion Gap 13.2 (5-19); Blood Urea Nitrogen 43 mg/dL (8-23); Calcium 7.7 mg/dL (8.5-10.5); Carbon Dioxide 20 mmol/L (22-29); Chloride 109 mmol/L (98-107); Globulin 4.2 g/dL (1.3-4.6); Glucose 111 mg/dL (65-115); Osmolality Calculated 298 mOsm/kg (285-295); Potassium 4.2 mmol/L (3.5-5.1); Sodium 138 mmol/L (136-145); Total Bilirubin 0.4 mg/dL (0.15-1.2); Total Protein 6.6 g/dL (6.6-8.7)
[2021-05-08 05:56] LABS: Aspartate Amino Transferase 27 U/L (0-40)
--- NOTE | 2021-05-08 08:46 | CT_ITS ---
WS: [id number] CT CHEST ANGIOGRAPHY WITH REFORMATS HISTORY: sob, elevated dimer TECHNIQUE: Contiguous axial images are obtained through the chest during arterial injection of intrav enous contrast. Images are reconstructed to evaluate the pulmonary arteries. MIP imaging also reviewe d. All CT scans at use at least one of these dose optimization techniques: aut omated exposure control; mA and/or kV adjustment per patient size (includes targeted exams where dose is matched to clinical indication); or iterative reconstruction. CONTRAST: Visipaque 320; 95 mL IV. DLP: 1194.0 mGy.cm COMPARISON: 11/05/2014 Very good opacification of the pulmonary arteries. Through the central and segmental branches no pulm onary embolism. Mild atherosclerosis aorta. Heart is moderately enlarged with a small pericardial eff usion. Moderate layering RIGHT pleural effusion. Diffuse interstitial thickening throughout the RIGHT lung a long with compressive atelectasis involving a moderate portion of the RIGHT lower lobe and a small am ount of the RIGHT upper lobe and RIGHT middle lobes. Less edema throughout the LEFT lung. Very tiny L EFT pleural effusion. There is extensive mediastinal and, hilar and LEFT axillary lymphadenopathy. Numerous enlarged lymph nodes. Periaortic lymph node measures 2.1 cm. Largest LEFT axillary lymph node is 1.4 cm. High RIGHT paratracheal lymph node is 1.8 cm. There are numerous additional enlarged lymph nodes. At the RIGHT h ilum there is a 2.3 x 2.4 cm lymph node. Large subcarinal lymph node is 2.4 cm. Increased soft tissue at the RIGHT hilum. Mass is not excluded. Motion artifact through the kidneys. Subtle areas of decreased attenuation or abnormal enhancement wo uld be obscured. Atherosclerotic plaque continues into the suprarenal aorta. No adrenal mass. In the LEFT lobe of the liver. Decreased areas of attenuation consistent with cysts which are stable since 2 015. There are small lymph nodes around the celiac axis and SMA and aram hepatis. The largest measu res 10 mm. Mild mesenteric edema. Vicarious excretion of contrast in the gallbladder. No osteoblastic or osteolytic disease. CT/CT angio chest PE protcl [id number] IMPRESSION: 1. Since the prior study development of anasarca and fluid overload. 2. Development of a moderate-sized RIGHT pleural effusion with compressive ate lectasis of the RIGHT lower lobe and partial atelectasis RIGHT upper and RIGHT middle lobes. 3. LEFT axillary, mediastinal and hilar lymphadenopathy. Increased soft tissue at the RIGHT hilum. Adenopathy or mass not excluded. Recommend bronchoscopy fo r further evaluation. 4. Diffuse soft tissue edema and interstitial thickening throughout the RIGHT lung. 5. Indeterminate lymph nodes at the celiac axis and SMA. 6. No pulmonary embolism. 7. Small pericardial effusion.
[2021-05-08] MEDS: apixaban 5 mg Tablet 10 MG PO (09:19)
[2021-05-08] MEDS: atorvastatin 40 mg Tablet 20 MG PO (09:20)
[2021-05-08] MEDS: ferrous gluconate 324 mg Tablet PO ×2 (09:20→17:43)
[2021-05-08] MEDS: azithromycin 250 mg Tablet 500 MG PO (09:20)
[2021-05-08] MEDS: tamsulosin 0.4 mg Capsule PO (09:20)
[2021-05-08] MEDS: aspirin 81 mg EC Tablet PO (09:20)
[2021-05-08] MEDS: metoprolol tartrate 25 mg Tablet PO ×2 (09:21→21:01)
[2021-05-08 09:27] LABS: Procalcitonin 67.43 ng/mL (0-0.5)
[2021-05-08] MEDS: budesonide 0.5 mg/2 mL Neb INHALATION ×2 (09:36→19:57)
[2021-05-08] MEDS: ipratropium-albuterol 3 mL Neb INHALATION ×2 (09:36→19:57)
[2021-05-08] MEDS: iodixanol 320 mg/mL 100mL Btl IV (11:33)
--- NOTE | 2021-05-08 14:10 | PM.PN ---
Subjective Subjective: Interval history: No acute events overnight. Today morning on examination blood pressures are soft. Patient sitting up in bed eating his lunch. He is a little more awake, less sluggish as compared to yesterday. Alert to himself, him being in the hospital and reason for hospitalization along with year. Complains of cough with mild expectoration. Vitals/I&O/Wt Last Vital Signs Temp 97.5 F L 05/08/21 12:20 Pulse 92 05/08/21 12:20 Resp 20 H 05/08/21 12:20 BP 116/58 05/08/21 12:20 Pulse Ox 93 05/08/21 12:20 05/07/21 05/08/21 05/08/21 22:59 06:59 14:59 Intake Total 820 / 2240 995 / 3235 480 / 480 Output Total 1550 / 1550 750 / 2300 Balance -730 / 690 245 / 935 480 / 480 Weight last 48 hrs Weight 54.975 kg Weight 55.338 kg Physical Exam Narrative: EXAM NARRATIVE: General: No acute distress, sluggish, pleasantly confused, AO x2, tangential thoughts HEENT: PERRLA, pupils bilaterally equal and reactive Chest: Normal vesicular breath sounds, occasional rhonchi present on the right side, fine crackles present at the bases, equal good air entry bilaterally CVS: S1-S2 regular, no murmurs,tachycardia, no gallops, no rubs Abdomen: Soft, nontender, no organomegaly, bowel sounds present Neuro: No focal deficits, no facial deformity, AO x3, power 5/5 in all limbs Urinary Catheter Management^: Dela Cruz: Cath Placed During This Visit: yes Urinary Catheter Date of Insertion: 05/06/21 Urinary Catheter Time of Insertion: 12:31 Data : 05/08/21 04:23 05/08/21 04:23 Micro: Microbiology 05/06/21 12:28 Blood Culture - Preliminary Blood Staphylococcus aureus 05/06/21 12:30 Urine Culture - Final Urine,Clean Catch 05/07/21 21:16 Blood Culture - Preliminary Blood SPECIMEN COLLECTED 05/07/21 21:06 Blood Culture - Preliminary Blood SPECIMEN COLLECTED 05/06/21 18:00 MRSA Culture - Final Nose 05/06/21 10:26 Blood Culture - Preliminary Blood NEGATIVE TO DATE 05/06/21 12:30 Bacterial Antigens - Final Urine Kidney A&P Assessment and plan (1) Sepsis: Status: Acute (2) Metabolic encephalopathy: Status: Acute (3) AMS (altered mental status): Status: Acute (4) Pneumonia: Status: Acute (5) UTI (urinary tract infection): Status: Acute (6) LUCRECIA (acute kidney injury): Status: Acute (7) Metabolic acidosis: Status: Acute (8) Acute urinary retention: Status: Acute (9) Elevated troponin: Status: Acute (10) Elevated d-dimer: Status: Acute (11) Hyperlipidemia: Status: Acute (12) Hypertension: Status: Acute Additional A&P Information 74-year gentleman with no significant past medical history other than hypertension hyperlipidemia presented to the ER today via EMS in confused state found to have a creatinine of 3 and acute urinary retention. Sepsis: Ruled in because of tachycardia, leukocytosis, elevated lactate, altered mental status and acute kidney injury. Most likely secondary to UTI and pneumonia. Urine studies positive for leuk esterase and nitrate. Blood culture/urine 1 out of 4 bottles positive for staph aureus. Most likely contaminant. Repeat blood cultures have remained negative. Urine culture preliminary have been negative. Urine legionella, bacterial antigen negative. MRSA positive. COVID-19, flu swab negative. Remove isolation precaution. Procalcitonin elevated most likely secondary possible malignancy. Continue with DuoNebs 4 times daily, budesonide twice daily. Continue with vancomycin and ceftriaxone. If urine culture remain negative will stop ceftriaxone. Stop azithromycin. Keep mean arterial pressure 65, saturation over 92%. DVT: D-dimer elevated. Lower limb Dopplers consistent with extensive DVT. Start on full dose Lovenox. Lovenox to be stopped on Tuesday morning for thoracocentesis and lymph node biopsy on Tuesday. CTA rules out pulmonary embolism. Consistent with moderate pleural effusion on the right with multiple lymphadenopathy. Most likely from malignancy. Possible malignancy: Check QuantiFERON, peripheral smear, flow cytometry. PSA negative. Have consulted pulmonology for pleural tap for cytology. Have consulted surgery for lymph node biopsy. Patient is agreeable for further work-up. Acute kidney injury: Most likely secondary urinary retention, dehydration and home medication chlorthalidone or lisinopril. Resolving. Creatinine 1.2 today. Continue with IV hydration with normal saline at 50 cc/h. CT abdomen pelvis ruled out obstructive nephropathy. Repeat BMP daily for now. We will go voiding trial tomorrow. If patient fails patient will most likely be discharged on Dela Cruz catheter with advised to follow-up with Dr. Ross as an outpatient. Continue with Flomax 0.4 daily. Altered mental status: Resolving. Not sure what his confusion is baseline. Patient does not have any formal diagnosis of dementia. Most likely metabolic encephalopathy from uremia, possible sepsis. Frequent reorientation. Metabolic high anion gap acidosis: Resolved. Most likely secondary to acute kidney injury and elevated lactate. Elevated troponin: Denies any chest pain. Most likely secondary to LUCRECIA. Troponin cycle delta negative. Hypertension: Goal blood less than 140/90mmhg. Blood pressure soft for now. Hold off on home dose of amlodipine, lisinopril, chlorthalidone. CODE STATUS: Patient states he does not want to be on life support and would not want chest compressions. Allow natural . His healthcare proxy will be his brothers. Cardiac diet. Full dose Lovenox to help with DVT prophylaxis also. Famotidine for PUD prophylaxis Discharge planning: Given his advanced age, living by himself not sure if patient will be able to take care of himself going further. Concern about dementia. Physical therapy evaluation recommends SNF. Patient is agreeable to the same. Case management has been alerted. Attestations Medical Necessity Statement*: Requires further hospitalization for management of acute DVT, acute kidney injury, possible malignancy under evaluation, sepsis. Time Spent in Patient Care: Greater than 35 minutes (>than 50% of time spent in counselling and/or direct pt care on unit). Coding Level of Care Code Acute Hydramatic Specialist for [facility] Fwd Diagnoses Sepsis A41.9 Metabolic encephalopathy G93.41 AMS (altered mental status) R41.82 Pneumonia J18.9 UTI (urinary tract infection) N39.0 LUCRECIA (acute kidney injury) N17.9 Metabolic acidosis E87.2 Acute urinary retention R33.8 Elevated troponin R77.8 Elevated d-dimer R79.89 Hyperlipidemia E78.5 Hypertension I10
[2021-05-08] MEDS: cefTRIAXone 1,000 MG in sodium chloride 0.9% (plus) 100 ML 200 MG IV (15:34)
[2021-05-08] MEDS: vancomycin 1,000 MG in sodium chloride 0.9% 250 ML 250 MG IV (17:42)
--- NOTE | 2021-05-08 17:56 | PM.CONSULT ---
Providers/Reason For Consult Consulting Physician/Specialty*: Javier Manjarrez MD Reason for Consult*: Lymph node biopsy Requesting Physician: Dr. Serrano Attending Physician: Nayan Serrano MD Primary Care Provider: Lina Ramon MD History of Present Illness History of Present Illness Chief Complaint: Tired History of present illness: Mr Mendel Jansen is a 80 year old male with associated history of hypertension and hyperlipidemia. Patient presented to the emergency department with history of nausea and vomiting for few days prior to presentation associated with diarrhea. Also he does have history of coughing for the past 1 week and an intermittent pattern. Patient was found confused per EMS as primary care provider's office had called EMS to check on the patient and patient was admitted to the hospitalist service and further work-up showed in the form of CT scan of the abdomen and pelvis that showed; 1. Small right pleural effusion with patchy infiltrates in right lower lobe consistent with pneumonia. 2. Diffuse fatty infiltration of the liver with a few low-attenuation lesions likely hepatic cysts and/or hemangiomas. This can be followed up with ultrasound. 3. Infrarenal lobulated abdominal aortic aneurysm measuring 3.4 x 3.6 x 5.5 cm AP by transverse by craniocaudal. Dense vascular calcification with peripheral mural thrombus. 4. Small pericardial effusion. 5. Small esophageal hiatal hernia. 6. Left renal cyst measuring 2.7 cm. 7. Low-attenuation lesions in the inferior aspect of the spleen nonspecific but may represent a combination of hepatic cysts, hemangiomas, or sequelae from prior infarcts or laceration. No surrounding fluid. Ultrasound may be helpful in further evaluation. 8. Urine distended bladder with prominent prostate measuring 4.1 cm. Correlation PSA. Evidence of bladder outlet obstruction with bladder wall thickening. 9. Slightly prominent and shotty periotic lymph nodes measuring 8 to 9 mm in maximum dimension. These are nonspecific but may be reactive not pathologically enlarged. This could be followed up in 3 months with contrast-enhanced CT abdomen pelvis. Followed by chest x-ray that showed 1. 4.0 cm right hilar mass with peripheral linear opacities which could represent obstructive pneumonitis. 2. Recommend CT chest. CT scan of the abdomen was repeated on 06 May that showed; 1. Markedly distended urinary bladder with contrast. Mild enlargement of the prostate measuring 4 cm. 2. Noncontrast kidneys are normal in appearance. No retained contrast in the kidneys or ureters. No obstructing renal or ureteral calculi. 3. Stable 2.7 cm left renal cyst. 4. Stable infrarenal abdominal aortic aneurysm measuring 3.4 x 3.6 CM. 5. Small right pleural effusion with patchy infiltrates in right lower lobe unchanged from previous. Recommend Correlation for pneumonia. Then a CTA was done on 716 that showed 1. Since the prior study development of anasarca and fluid overload. 2. Development of a moderate-sized RIGHT pleural effusion with compressive atelectasis of the RIGHT lower lobe and partial atelectasis RIGHT upper and RIGHT middle lobes. 3. LEFT axillary, mediastinal and hilar lymphadenopathy. Increased soft tissue at the RIGHT hilum. Adenopathy or mass not excluded. Recommend bronchoscopy for further evaluation. 4. Diffuse soft tissue edema and interstitial thickening throughout the RIGHT lung. 5. Indeterminate lymph nodes at the celiac axis and SMA. 6. No pulmonary embolism. 7. Small pericardial effusion. Venous duplex left extremity showed Features suggestive of possible acute DVT involving the right popliteal and the proximal posterior tibial vein, causing total occlusion. No evidence of DVT in the other above-mentioned veins. General surgery was consulted for potential biopsy of the left axilla lymphadenopathy. As pulmonary service will plan to perform right hemithorax thoracocentesis. Review of Systems General: Reports: 10 or more systems reviewed and unremarkable except in HPI and below Meds/Allergies Home Medications and Allergies Home Medications Medication Instructions Recorded Confirmed Last Taken Type Fish Oil 1 cap PO DAILY 05/06/21 05/06/21 Unknown History amlodipine 5 mg PO DAILY 05/06/21 05/06/21 Unknown History aspirin [Aspir-81] 81 mg PO DAILY 05/06/21 05/06/21 Unknown History chlorthalidone 25 mg PO DAILY 05/06/21 05/06/21 Unknown History lisinopril 20 mg PO BID 05/06/21 05/06/21 Unknown History lovastatin 40 mg PO DAILY 05/06/21 05/06/21 Unknown History Allergies Allergy/AdvReac Type Severity Reaction Status Date / Time No Known Allergies Allergy Verified 05/06/21 10:06 Current Medications Current Medications Generic Name Dose Route Start Last Admin Trade Name Freq PRN Reason Stop Dose Admin Albuterol/Ipratropium 3 ml 05/07/21 16:00 05/08/21 09:36 Ipratropium-Albuterol 3 Ml Neb INHALATION 3 ml QID.RESPIRATORY FLY Administration Amlodipine Besylate 5 mg 05/07/21 09:00 05/07/21 08:54 Amlodipine 5 Mg Tablet PO Not Given DAILY FLY Aspirin 81 mg 05/07/21 09:00 05/08/21 09:20 Aspirin 81 Mg Ec Tablet PO 81 mg DAILY FLY Administration Atorvastatin Calcium 20 mg 05/07/21 09:00 05/08/21 09:20 Atorvastatin 40 Mg Tablet PO 20 mg DAILY FLY Administration Budesonide 0.5 mg 05/07/21 20:00 05/08/21 09:36 Budesonide 0.5 Mg/2 Ml Neb INHALATION 0.5 mg BID.RESPIRATORY FLY Administration Famotidine 20 mg 05/06/21 14:30 05/08/21 15:34 Famotidine 20 Mg/2 Ml Inj IVP 20 mg Q12H FLY Administration Ferrous Gluconate 324 mg 05/06/21 18:00 05/08/21 17:43 Ferrous Gluconate 324 Mg Tablet PO 324 mg BIDWM FLY Administration Sodium Chloride 1,000 mls @ 50 mls/hr 05/06/21 13:30 05/08/21 02:48 Sodium Chloride 0.9% IV 75 mls/hr .Q20H FLY Administration Ceftriaxone Sodium 1,000 mg/ 100 mls @ 200 mls/hr 05/06/21 15:00 05/08/21 16:05 Sodium Chloride IV Infused Q24H FLY Infusion Protocol Vancomycin HCl 1,000 mg/ 250 mls @ 250 mls/hr 05/07/21 16:00 05/08/21 17:42 Sodium Chloride IV 250 mls/hr Q24H FLY Administration Metoprolol Tartrate 25 mg 05/08/21 09:00 05/08/21 09:21 Metoprolol Tartrate 25 Mg Tablet PO 25 mg BID@0900,2100 FLY Administration Tamsulosin HCl 0.4 mg 05/06/21 16:55 05/08/21 09:20 Tamsulosin 0.4 Mg Capsule PO 0.4 mg DAILY FLY Administration PFSH Acute PFSH: Medical History Abdominal aortic aneurysm (AAA) 30 to 34 mm in diameter Hyperlipidemia Hypertension Metabolic acidosis Family History Denies family history of Diabetes Chronic kidney disease (CKD) Social History Smoking and tobacco status: former smoker Alcohol intake: former Lives independently: Yes Household members: none Housing: House Vitals/I&O/Wt Last Vital Signs Temp 97.5 F L 05/08/21 12:20 Pulse 100 05/08/21 16:00 Resp 18 05/08/21 16:00 BP 122/73 05/08/21 16:00 Pulse Ox 94 05/08/21 16:00 05/08/21 05/08/21 05/08/21 06:59 14:59 22:59 Intake Total 995 / 3235 480 / 480 100 / 580 Output Total 750 / 2300 Balance 245 / 935 480 / 480 100 / 580 Weight last 48 hrs Weight 121 lb 3.2 oz Weight 122 lb Physical Exam Narrative: EXAM NARRATIVE: Patient is conscious alert, moderately confused and in mild distress BMI 19 Head and neck examination PERRLA no masses no cervical lymphadenopathy no jaundice Cardiac examination audible S1-S2 no murmurs no gallops no arrhythmias Chest diminished air entry on the right side Abdomen nontender nondistended soft no organomegaly guarding or rigidity/no signs of peritonitis Small left axilla lymph node hardly palpable, firm in consistency, mobile no other associated clinical palpable lymphadenopathy of the cervical and right axillary regions or infra or supraclavicular areas. Urinary Catheter Management^: Dela Cruz: Cath Placed During This Visit: yes Urinary Catheter Date of Insertion: 05/06/21 Urinary Catheter Time of Insertion: 12:31 Data Micro: Micro: Microbiology 05/06/21 12:28 Blood Culture - Pr eliminary Blood Staphylococcus aureus 05/06/21 12:30 Urine Culture - Fi nal Urine,Clean Catch 05/07/21 21:16 Blood Culture - Pr eliminary Blood SPECIMEN [facility] KASANDRA 05/07/21 21:06 Blood Culture - Pr eliminary Blood SPECIMEN [facility] KASANDRA A&P Assessment and plan (1) Lymphadenopathy, axillary: After limited history taking physical examination and reviewing the chart and images with my personal interpretation, certainly I can make myself available to obtain a lymph node biopsy of the left axilla as an outpatient yet I do believe that the patient likely would benefit more from mediastinoscopy/bronchoscopy at the same session per CT surgery service to have better evaluation of the mediastinal lymphadenopathy and potential better staging if there is a concern that there is an underlying lung neoplasm. Thank you for consulting general surgery to participate taking care Status: Acute Consult Attestations Medical Necessity Statement: Ongoing hospitalization as an inpatient passing 2 midnights for medical optimization and potential intervention. Time Spent in Patient Care: (>than 50% of time spent in counselling and/or direct pt care on unit). Coding Level of Care Code Acute Drill Operator Automatic for Krissyg Fwd Diagnoses Lymphadenopathy, axillary R59.0
[2021-05-08 17:57] LABS: LAB Peripheral Smear Sent for Review
[2021-05-08] MEDS: sodium chloride 0.9% 1,000 ML 50 ML IV (20:57)
[2021-05-08] MEDS: enoxaparin 60 mg/0.6 mL Syringe 55 MG SUBCUT (21:05)
[2021-05-09] VITALS (15 sets, daily range): BP systolic 115–140; BP diastolic 56–77; PULSE 90–124; RESP 16–25; TEMP 36.6–37.1; O2SAT 88–95
[2021-05-09] MEDS: famotidine 20 mg/2 mL INJ IVP ×2 (02:46→14:01)
[2021-05-09 06:00] LABS: Basophils # 0.1 10^3/uL (0.0-0.1); Eosinophils # 0.3 10^3/uL (0.0-0.8); Eosinophils % 2.7 %; Hematocrit 34.6 % (42.0-52.0); Hemoglobin 10.9 g/dL (11.7-16.6); Lymphocytes # 1.1 10^3/uL (0.8-4.8); Lymphocytes % 10.8 %; Mean Corpuscular HGB Conc 31.5 g/dL (30.0-36.0); Mean Corpuscular Hemoglobin 29.5 pg (28.0-34.0); Mean Corpuscular Volume 93.5 fL (80-94); Mean Platelet Volume 12.3 fL (7.4-10.4); Monocytes # 1.1 10^3/uL (0.2-0.9); Monocytes % 10.4 %; Neutrophils # 7.59 10^3/uL (1.8-7.7); Neutrophils % 73.3 %; Nucleated Red Blood Cells % 0 %; Platelet Count 202 10^3/cmm (130-400); Red Cell Distribution Width 13.8 % (12.1-15.1); White Blood Count 10.4 10^3/uL (4.0-10.0)
[2021-05-09 06:17] LABS: Alanine Aminotransferase 20 U/L (0-41); Albumin Level 2.5 g/dL (3.5-5.2); Alkaline Phosphatase 91 IU/L (40-130); Aspartate Amino Transferase 31 U/L (0-40); Blood Urea Nitrogen 24 mg/dL (8-23); Calcium 7.9 mg/dL (8.5-10.5); Carbon Dioxide 21 mmol/L (22-29); Chloride 107 mmol/L (98-107); Globulin 4.4 g/dL (1.3-4.6); Glucose 105 mg/dL (65-115); Osmolality Calculated 292 mOsm/kg (285-295); Sodium 139 mmol/L (136-145); Total Bilirubin 0.5 mg/dL (0.15-1.2); Total Protein 6.9 g/dL (6.6-8.7)
--- NOTE | 2021-05-09 07:48 | PM.CONSULT ---
Providers/Reason For Consult Consulting Physician/Specialty*: Triston Alicea MD/Pulmonary Critical Care Reason for Consult*: right Pleural effusion in pt admitted with AMS with UTI/Possible Pneumonia, DVT and diffuse lymphadenopthy, Requesting Physician: Nayan Serrano MD Attending Physician: Nayan Serrano MD Primary Care Provider: Lina Ramon MD History of Present Illness History of Present Illness Mendel Jansen is a 80 year old male with past medical history of hypertension, hyperlipidemia admitted to [facility] for AMS, Nausea, vomiting, diarrhea, with chills, right calf swelling. subsequent work up showed pt. is UTI , MRSA nares positive and blood cultures positive for staph aureus 1/4 bottles. Patient is on Vancomycin and Rocephin. venous doppler showed Rt popliteal DVT, He was anticoagulated with elliquis. CT abdomen showed distended urinary bladder and prostratomegaly. Once renal functions are better, CTA was done ruled out PE but showed moderate-sized RIGHT pleural effusion with compressive atelectasis of the RIGHT lower lobe and partial atelectasis RIGHT upper and RIGHT middle lobes. LEFT axillary, mediastinal and hilar lymphadenopathy. Increased soft tissue at the RIGHT hilum. Adenopathy or mass not excluded. Limited Echo on admission showed LV is hyperdynamic with EF of >65%. No regional wall motion abnormalities are seen. Small pericardial effusion is noted. Pulmonary consulted for right pleural effusion with diffuse edema mediastinal and hilar and axillary lymphadenopathy. Patient seen at bedside today morning Appeared comfortable, Not in respiratory distress, saturating 95% on 2 L nasal cannula Appeared alert and oriented and answered questions appropriately -Reported being a former smoker but could not quantify Bedside ultrasound did show moderate right pleural effusion with no loculations and currently patient is on anticoagulation Review of Systems General: Reports: 10 or more systems reviewed and unremarkable except in HPI and below Meds/Allergies Home Medications and Allergies Home Medications Medication Instructions Recorded Confirmed Last Taken Type Fish Oil 1 cap PO DAILY 05/06/21 05/06/21 Unknown History amlodipine 5 mg PO DAILY 05/06/21 05/06/21 Unknown History aspirin [Aspir-81] 81 mg PO DAILY 05/06/21 05/06/21 Unknown History chlorthalidone 25 mg PO DAILY 05/06/21 05/06/21 Unknown History lisinopril 20 mg PO BID 05/06/21 05/06/21 Unknown History lovastatin 40 mg PO DAILY 05/06/21 05/06/21 Unknown History Allergies Allergy/AdvReac Type Severity Reaction Status Date / Time No Known Allergies Allergy Verified 05/06/21 10:06 Current Medications Current Medications Generic Name Dose Route Start Last Admin Trade Name Freq PRN Reason Stop Dose Admin Albuterol/Ipratropium 3 ml 05/07/21 16:00 05/08/21 19:57 Ipratropium-Albuterol 3 Ml Neb INHALATION 3 ml QID.RESPIRATORY FLY Administration Amlodipine Besylate 5 mg 05/07/21 09:00 05/07/21 08:54 Amlodipine 5 Mg Tablet PO Not Given DAILY FLY Aspirin 81 mg 05/07/21 09:00 05/08/21 09:20 Aspirin 81 Mg Ec Tablet PO 81 mg DAILY FLY Administration Atorvastatin Calcium 20 mg 05/07/21 09:00 05/08/21 09:20 Atorvastatin 40 Mg Tablet PO 20 mg DAILY FLY Administration Budesonide 0.5 mg 05/07/21 20:00 05/08/21 19:57 Budesonide 0.5 Mg/2 Ml Neb INHALATION 0.5 mg BID.RESPIRATORY FLY Administration Enoxaparin Sodium 55 mg 05/08/21 22:00 05/08/21 21:05 Enoxaparin 60 Mg/0.6 Ml Syringe SUBCUT 05/09/21 22:01 55 mg Q12H FLY Administration Famotidine 20 mg 05/06/21 14:30 05/09/21 02:46 Famotidine 20 Mg/2 Ml Inj IVP 20 mg Q12H FLY Administration Ferrous Gluconate 324 mg 05/06/21 18:00 05/08/21 17:43 Ferrous Gluconate 324 Mg Tablet PO 324 mg BIDWM FLY Administration Sodium Chloride 1,000 mls @ 50 mls/hr 05/06/21 13:30 05/08/21 20:57 Sodium Chloride 0.9% IV 50 mls/hr .Q20H FLY Administration Ceftriaxone Sodium 1,000 mg/ 100 mls @ 200 mls/hr 05/06/21 15:00 05/08/21 16:05 Sodium Chloride IV Infused Q24H FLY Infusion Protocol Vancomycin HCl 1,000 mg/ 250 mls @ 250 mls/hr 05/07/21 16:00 05/08/21 19:00 Sodium Chloride IV Infused Q24H FLY Infusion Metoprolol Tartrate 25 mg 05/08/21 09:00 05/08/21 21:01 Metoprolol Tartrate 25 Mg Tablet PO 25 mg BID@0900,2100 FLY Administration Tamsulosin HCl 0.4 mg 05/06/21 16:55 05/08/21 09:20 Tamsulosin 0.4 Mg Capsule PO 0.4 mg DAILY FLY Administration PFSH Acute PFSH: Medical History Abdominal aortic aneurysm (AAA) 30 to 34 mm in diameter Hyperlipidemia Hypertension Family History Denies family history of Diabetes Chronic kidney disease (CKD) Social History Smoking and tobacco status: former smoker Alcohol intake: former Lives independently: Yes Household members: none Housing: House Vitals/I&O/Wt Last Vital Signs Temp 98.2 F 05/08/21 20:00 Pulse 104 H 05/09/21 04:00 Resp 18 05/09/21 04:00 BP 122/60 05/09/21 04:00 Pulse Ox 95 05/09/21 04:00 05/08/21 05/09/21 05/09/21 22:59 06:59 14:59 Intake Total 1650 / 2130 100 / 2230 Output Total 675 / 675 Balance 1650 / 2130 -575 / 1555 Weight last 48 hrs Weight 121 lb 3.2 oz Physical Exam Narrative: EXAM NARRATIVE: General: alert, NAD HEENT: conj clear, EOMI, PERRL, mmm, Neck: supple, no meningismus Heme: no cervical LAP Pulmonary: Reduced breath sounds on right lower lung Cardiovascular: rrr, nl s1s2, no mrg Abdomen: soft, nt, nd, no r/g, bs+ Extremities: pulses +, no edema, no c/c : no CVA tenderness Skin: intact, no rash MSK: no back or neck pain Neurologic: grossly intact Urinary Catheter Management^: Dela Cruz: Cath Placed During This Visit: yes Urinary Catheter Date of Insertion: 05/06/21 Urinary Catheter Time of Insertion: 12:31 Data Labs: Other Labs: Laboratory Results WBC 10.4 10^3/uL (4.0 -10.0) H 05/09/21 04:24 RBC 3.70 10^6/uL (4.1 -5.3) L 05/09/21 04:24 Hgb 10.9 g/dL (11.7-1 6.6) L 05/09/21 04:24 Hct 34.6 % (42.0-52.0 ) L 05/09/21 04:24 MCV 93.5 fL (80-94) 05/09/21 04:24 MCH 29.5 pg (28.0-34. 0) 05/09/21 04:24 MCHC 31.5 g/dL (30.0-3 6.0) 05/09/21 04:24 RDW 13.8 % (12.1-15.1 ) 05/09/21 04:24 Plt Count 202 10^3/cmm (130 -400) 05/09/21 04:24 MPV 12.3 fL (7.4-10.4 ) H 05/09/21 04:24 Neut % (Auto) 73.3 % 05/09/21 04:24 Lymph % (Auto) 10.8 % 05/09/21 04:24 [place] % (Auto) 10.4 % 05/09/21 04:24 Eos % (Auto) 2.7 % 05/09/21 04:24 Baso % (Auto) 1.0 % 05/09/21 04:24 Neut # (Auto) 7.59 10^3/uL (1.8 -7.7) 05/09/21 04:24 Lymph # (Auto) 1.1 10^3/uL (0.8- 4.8) 05/09/21 04:24 [place] # (Auto) 1.1 10^3/uL (0.2- 0.9) H 05/09/21 04:24 Eos # (Auto) 0.3 10^3/uL (0.0- 0.8) 05/09/21 04:24 Baso # (Auto) 0.1 10^3/uL (0.0- 0.1) 05/09/21 04:24 Nucleated RBC % (a uto) 0 % 05/09/21 04:24 Nucleated RBCs # 0.0 /100WBC 05/09/21 04:24 Fibrinogen 163 mg/dL (174-49 8) L 05/06/21 14:11 D-Dimer >= 20.00 ug/mIFEU (0-0.59) H 05/06/21 14:11 Specimen Type Arterial 05/06/21 10:42 Sample Site Brachial, right 05/06/21 10:42 ABG pH 7.39 (7.35-7.45) 05/06/21 10:42 ABG pCO2 27.9 mmHg (35-45) L 05/06/21 10:42 ABG pO2 59.6 mmHg (80.0-1 00.0) L 05/06/21 10:42 ABG HCO3 17.0 mmol/L (22-2 6) L 05/06/21 10:42 ABG O2 Saturation 90.1 05/06/21 10:42 ABG Base Excess -6.5 mmol/L (-2.0 -2.0) L 05/06/21 10:42 Agustín Test N/a 05/06/21 10:42 A-a O2 Gradient 7.2 mmHg (5-10) 05/06/21 10:42 Hematocrit 38.8 % (42-52) L 05/06/21 10:42 Hgb O2 Saturation 88.6 % (95-100) L 05/06/21 10:42 Carboxyhemoglobin 1.0 %THgb (0.4-20 .1) 05/06/21 10:42 Methemoglobin 0.6 % (0.4-1.5) 05/06/21 10:42 Total Hemoglobin 12.6 g/dL (14-18) L 05/06/21 10:42 Sodium 139.0 mmol/L (131 -143) 05/06/21 10:42 Potassium 3.9 mmol/L (3.5-5 .0) 05/06/21 10:42 Glucose 120.0 mg/dL (70-1 15) H 05/06/21 10:42 Ionized Calcium 1.1 mmol/L (1.1-1 .4) 05/06/21 10:42 O2 Delivery Device Room air 05/06/21 10:42 FiO2 21.0 % 05/06/21 10:42 Senior Network Architect ID Amh 05/06/21 10:42 Sodium 139 mmol/L (136-1 45) 05/09/21 04:24 Potassium 4.0 mmol/L (3.5-5 .1) 05/09/21 04:24 Chloride 107 mmol/L (98-10 7) 05/09/21 04:24 Carbon Dioxide 21 mmol/L (22-29) L 05/09/21 04:24 Anion Gap 15.0 (5-19) 05/09/21 04:24 BUN 24 mg/dL (8-23) H 05/09/21 04:24 Creatinine 1.0 mg/dL (0.7-1. 2) 05/09/21 04:24 GFR Calculation Not Reportable 05/09/21 04:24 Glucose 105 mg/dL (65-115 ) 05/09/21 04:24 Estimat Average Gl ucose 94 05/07/21 05:20 Hemoglobin A1c 4.9 % (4.0-6.0) 05/07/21 05:20 Calculated Osmolal ity 292 mOsm/kg (285- 295) 05/09/21 04:24 Lactic Acid 2.3 mmol/L (0.5-2 .2) H 05/06/21 10:26 Lactic Acid (Sepsi s) 1.4 mmol/L (0.5-2 .2) 05/06/21 14:11 Calcium 7.9 mg/dL (8.5-10 .5) L 05/09/21 04:24 Magnesium 2.8 mg/dL (1.7-2. 3) H 05/06/21 14:11 Iron 23 ug/dL (59-158) L 05/06/21 14:11 TIBC 167 mcg/dl 05/06/21 14:11 % Saturation 13.7 % (20-50) L 05/06/21 14:11 Unsat Iron Binding 144 ug/dL (112-34 7) 05/06/21 14:11 Ferritin 2500 ng/mL (30-40 0) H 05/06/21 14:11 Total Bilirubin 0.5 mg/dL (0.15-1 .2) 05/09/21 04:24 AST 31 U/L (0-40) 05/09/21 04:24 ALT 20 U/L (0-41) 05/09/21 04:24 Alkaline Phosphata se 91 IU/L (40-130) 05/09/21 04:24 Lactate Dehydrogen ase 282 U/L (135-225) H 05/06/21 14:11 Creatine Kinase 65 U/L (39-308) 05/06/21 14:11 Troponin T Baselin e 677 ng/L (0-15) H* 05/06/21 10:26 Troponin T 120 Min demetrio 633.6 ng/L (0-15) H 05/06/21 12:28 Delta Troponin T -43.4 ABS# (0-10) L 05/06/21 12:28 Troponin T Hi Sens 6Hr 476.5 ng/L (0-15) H 05/06/21 16:30 Troponin T Hi Sens 6Hr Delta -200.5 ng/L (0-12 ) L 05/06/21 16:30 C-Reactive Protein 74.5 mg/L (0.0-4. 9) H 05/06/21 14:11 NT-Pro-B Natriuret Pep 774 pg/mL (0-450) H 05/06/21 14:11 Total Protein 6.9 g/dL (6.6-8.7 ) 05/09/21 04:24 Albumin 2.5 g/dL (3.5-5.2 ) L 05/09/21 04:24 Globulin 4.4 g/dL (1.3-4.6 ) 05/09/21 04:24 Triglycerides 125 mg/dL (0-150) 05/07/21 05:20 Cholesterol 129 mg/dL (0-200) 05/07/21 05:20 LDL Cholesterol, C alc 76 mg/dL (50-129) 05/07/21 05:20 Total VLDL Cholest norris 25 mg/dL (0-30) 05/07/21 05:20 HDL Cholesterol 28 mg/dL (60-100) L 05/07/21 05:20 Cholesterol/HDL Ra jaya 4.61 mg/dL (1.0-5 .00) 05/07/21 05:20 Lipase 96 U/L (13-60) H 05/06/21 10:26 Prostate Specific Ag 0.882 ng/mL (0-4) 05/06/21 14:11 Procalcitonin 67.43 ng/mL (0-0. 5) H 05/08/21 06:46 TSH 4.02 uIU/mL (0.27 -4.20) 05/06/21 14:11 Urine Color Yellow (Yellow) 05/06/21 12:30 Urine Appearance Clear (CLEAR) 05/06/21 12:30 Urine pH 5 (5-7) 05/06/21 12:30 Ur Specific Gravit y 1.020 (1.005-1.0 30) 05/06/21 12:30 Urine Protein Trace (Negative) 05/06/21 12:30 Urine Glucose (UA) Norm (Normal) 05/06/21 12:30 Urine Ketones 1+ (Negative) H 05/06/21 12:30 Urine Blood 3+ (Negative) H 05/06/21 12:30 Urine Nitrate Positive (Negati ve) H 05/06/21 12:30 Urine Bilirubin Neg (Negative) 05/06/21 12:30 Urine Urobilinogen Norm mg/dL (Negat naomi) 05/06/21 12:30 Ur Leukocyte Latasha ase 1+ (Negative) H 05/06/21 12:30 Urine RBC 5-10 /hpf (0-2) H 05/06/21 12:30 Urine WBC 0-4 /hpf (0-5) H 05/06/21 12:30 Ur Squamous Epith Cells 0-4 /hpf (0-5) H 05/06/21 12:30 Amorphous Sediment Not Reportable 05/06/21 12:30 Urine Bacteria 3+ /hpf (NONE) H 05/06/21 12:30 Ur Random Sodium 47 mmol/L 05/06/21 12:30 Ur Random Potassiu m 37 mmol/L 05/06/21 12:30 Ur Random Chloride 19 mmol/L 05/06/21 12:30 Urine Creatinine 179 mg/dL (39-259 ) 05/06/21 12:30 Urine Opiates Scre en Negative ng/mL (N egative) 05/06/21 12:30 Ur Barbiturates Sc reen Negative ng/mL (N egative) 05/06/21 12:30 Ur Phencyclidine S crn Negative ng/mL (N egative) 05/06/21 12:30 Ur Amphetamines Sc reen Negative ng/mL (N egative) 05/06/21 12:30 U Benzodiazepines Scrn Negative ng/mL (N egative) 05/06/21 12:30 Urine Cocaine Scre en Negative ng/mL (N egative) 05/06/21 12:30 U Marijuana (THC) Screen Negative ng/mL (N egative) 05/06/21 12:30 Serum Ketones Negative (Negati ve) 05/06/21 10:26 Nasal/Oral COVID-1 9 PCR Not detected 05/06/21 18:00 Influenza Type A A g Negative (Negati ve) 05/06/21 18:11 Influenza Type B A g Negative (Negati ve) 05/06/21 18:11 SARS-CoV-2 Ag (Rap id) Negative (Negati ve) 05/06/21 18:00 Impressions Chest X-Ray 05/06/21 10:04 Impression: 1. 4.0 cm right hilar mass with peripheral linear opacities which could represent obstructive pneumonitis. 2. Recommend CT chest. Abdomen/Pelvis CT 05/06/21 11:25 IMPRESSION: 1. Markedly distended urinary bladder with contrast. Mild enlargement of the prostate measuring 4 cm. 2. Noncontrast kidneys are normal in appearance. No retained contrast in the kidneys or ureters. No obstructing renal or ureteral calculi. 3. Stable 2.7 cm left renal cyst. 4. Stable infrarenal abdominal aortic aneurysm measuring 3.4 x 3.6 CM. 5. Small right pleural effusion with patchy infiltrates in right lower lobe unchanged from previous. Recommend Correlation for pneumonia. Head CT 05/06/21 11:25 IMPRESSION: 1. No evidence of intracranial hemorrhage or mass effect. 2. Moderate small vessel changes. Moderate parenchymal volume loss. 3. Chronic infarct left lateral basal ganglia. 4. No acute intracranial findings. Chest CTA 05/08/21 08:46 IMPRESSION: 1. Since the prior study development of anasarca and fluid overload. 2. Development of a moderate-sized RIGHT pleural effusion with compressive atelectasis of the RIGHT lower lobe and partial atelectasis RIGHT upper and RIGHT middle lobes. 3. LEFT axillary, mediastinal and hilar lymphadenopathy. Increased soft tissue at the RIGHT hilum. Adenopathy or mass not excluded. Recommend bronchoscopy for further evaluation. 4. Diffuse soft tissue edema and interstitial thickening throughout the RIGHT lung. 5. Indeterminate lymph nodes at the celiac axis and SMA. 6. No pulmonary embolism. 7. Small pericardial effusion. Micro: Micro: Microbiology 05/07/21 21:16 Blood Culture - Pr eliminary Blood NEGATIVE TO JUSTIN E 05/07/21 21:06 Blood Culture - Pr eliminary Blood NEGATIVE TO JUSTIN E 05/06/21 12:28 Blood Culture - Pr eliminary Blood Staphylococcus aureus 05/06/21 12:30 Urine Culture - Fi nal Urine,Clean Catch A&P Assessment and plan (1) Sepsis with acute hypoxic respiratory failure: Status: Acute Qualifiers: Sepsis type: sepsis due to unspecified organism Severe sepsis shock status: without septic shock Qualified Code(s): A41.9 - Sepsis, unspecified organism; R65.20 - Severe sepsis without septic shock; J96.01 - Acute respiratory failure with hypoxia (2) Elevated troponin: Status: Acute (3) Pneumonia: Status: Acute Qualifiers: Pneumonia type: due to methicillin-sensitive Staphylococcus aureus (MSSA) Laterality: right Lung location: unspecified part of lung Qualified Code(s): J15.211 - Pneumonia due to Methicillin susceptible Staphylococcus aureus (4) AMS (altered mental status): Status: Acute Qualifiers: Altered mental status type: unspecified Qualified Code(s): R41.82 - Altered mental status, unspecified (5) UTI (urinary tract infection): Status: Acute Qualifiers: Urinary tract infection type: site unspecified Hematuria presence: with hematuria Qualified Code(s): N39.0 - Urinary tract infection, site not specified; R31.9 - Hematuria, unspecified (6) LUCRECAI (acute kidney injury): Status: Acute (7) Lymphadenopathy, axillary: Status: Acute (8) Lymphadenopathy, mediastinal: Status: Acute (9) DVT of lower extremity (deep venous thrombosis): Status: Acute Qualifiers: Affected thrombotic vein of extremity: popliteal Chronicity: acute Laterality: right Qualified Code(s): I82.431 - Acute embolism and thrombosis of right popliteal vein Overall: 80-year-old male admitted with altered mental status, nausea, vomiting, diarrhea found to require 2 L oxygen and UA revealing UTI, MRSA nares positive, lower extremity Doppler positive for acute DVT involving right popliteal and proximal posterior tibial vein causing total occlusion, CT chest, showing moderate pleural effusion with compressive atelectasis of the RIGHT lower lobe and partial atelectasis RIGHT upper and RIGHT middle lobes, LEFT axillary, mediastinal and hilar lymphadenopathy. Increased soft tissue at the RIGHT hilum. -Altered mental status likely secondary to sepsis UTI/pneumonia-improving with antibiotics -Currently in no respiratory distress, 2 L nasal cannula-saturating 95% -MRSA nares positive-on contact isolation-continue vancomycin -UA showed UTI, cultures negative, currently on ceftriaxone-to complete 5 days -Urine bacterial antigens, Legionella antigen negative; procalcitonin significantly high suggestive of bacterial infection versus malignancy vs LUCRECIA (creatinine 3) -Blood cultures 1/4 bottles positive for staph aureus; repeat blood cultures pending -Patient had significantly elevated troponin on admission but after 2 hrs trended down and Echo showed LV is hyperdynamic with EF of >65% with small pericardial effusion. -Right lower extremity DVT on Doppler- S/P 1 dose of Eliquis 10 mg yesterday-later transitioned to Lovenox 55 mg Q12HR, -Moderate right pleural effusion on CT and bedside ultrasound-looks uncomplicated with no loculations-parapneumonic vs malignant; I will plan to do thoracentesis and send the fluid analysis and cytology -I would prefer to do thoracentesis when pathology is available on Tuesday to centrifuge the sample and make a pellet to get a better yield to rule out malignancy; also recommended to hold anticoagulation after Tuesday morning dose -If cytology is negative-we will request surgery to do left axillary lymph node biopsy either inpatient or as outpatient if patient is discharged. -If left axillary lymph node is negative-then I will schedule for EBUS to obtain samples from mediastinal and hilar lymph nodes -I will coordinate with Dr. Can acosta on the case. -LUCRECIA Improved with IV fluids and creatinine down to 1 -Currently on flomax 0.4 mg for BPH; -As patient is elderly male living alone-manager social responsibility evaluation to arrange placement at skilled nursing -He is interested in pursuing diagnosis -Currently CODE STATUS: DNR/DNI-allow natural -His brother will be his next of kin to make decision in case if patient cannot Medical condition and plan of care explained to patient in detail. He verbalized understanding and agreed with the plan Recommendations conveyed to Dr. North surgeon on the case, hospitalist, RN, RT taking care of the patient. Consult Attestations Medical Necessity Statement: improving AMS, LUCRECIA - Currently being treated for MRSA pneumonia, UTI and DVT. Time Spent in Patient Care: (>than 50% of time spent in counselling and/or direct pt care on unit). including bed side Ultrasound Critical Care Time: Critical Care Time (min): 45 Coding Level of Care Code Established Pt Acute Relief Charge Nurse for Chg Fwd Patient Type Established History Comprehensive Exam Comprehensive Medical Decision Making Moderate Complexity Diagnoses Sepsis with acute hypoxic respiratory failure A41.9; R65.20; J96.01 Sepsis type: sepsis due to unspecified organism Severe sepsis shock status: without septic shock Elevated troponin R77.8 Pneumonia J15.211 Pneumonia type: due to methicillin-sensitive Staphylococcus aureus (MSSA) Laterality: right Lung location: unspecified part of lung AMS (altered mental status) R41.82 Altered mental status type: unspecified UTI (urinary tract infection) N39.0; R31.9 Urinary tract infection type: site unspecified Hematuria presence: with hematuria LUCRECIA (acute kidney injury) N17.9 Lymphadenopathy, axillary R59.0 Lymphadenopathy, mediastinal R59.0 DVT of lower extremity (deep venous thrombosis) I82.431 Affected thrombotic vein of extremity: popliteal Chronicity: acute Laterality: right Time Spent (min) 45 Comment including bedside sono
[2021-05-09] MEDS: ipratropium-albuterol 3 mL Neb INHALATION ×3 (08:02→20:31)
[2021-05-09] MEDS: budesonide 0.5 mg/2 mL Neb INHALATION ×2 (08:02→20:31)
--- NOTE | 2021-05-09 08:11 | P.PN_ITS ---
Subjective Subjective: Interval history: No acute events overnight patient lying comfortably in bed on 3 L nasal cannula saturating 92%. Denies any nausea, vomiting, headache. More awake today. Walking with physical therapy. Vitals/I&O/Wt Last Vital Signs Temp 98.2 F 05/08/21 20:00 Pulse 106 H 05/09/21 08:06 Resp 18 05/09/21 07:45 BP 122/60 05/09/21 04:00 Pulse Ox 95 05/09/21 07:45 05/08/21 05/09/21 05/09/21 22:59 06:59 14:59 Intake Total 1650 / 2130 100 / 2230 Output Total 675 / 675 Balance 1650 / 2130 -575 / 1555 Weight last 48 hrs Weight 54.975 kg Physical Exam Narrative: EXAM NARRATIVE: General: No acute distress, sluggish, pleasantly confused, AO x2, tangential thoughts HEENT: PERRLA, pupils bilaterally equal and reactive Chest: Normal vesicular breath sounds, occasional rhonchi present on the right side, fine crackles present at the bases, equal good air entry bilaterally CVS: S1-S2 regular, no murmurs,tachycardia, no gallops, no rubs Abdomen: Soft, nontender, no organomegaly, bowel sounds present Neuro: No focal deficits, no facial deformity, AO x3, power 5/5 in all limbs Urinary Catheter Management^: Dela Cruz: Cath Placed During This Visit: yes Urinary Catheter Date of Insertion: 05/06/21 Urinary Catheter Time of Insertion: 12:31 Data : 05/09/21 04:24 05/09/21 04:24 Micro: Microbiology 05/07/21 21:16 Blood Culture - Preliminary Blood NEGATIVE TO DATE 05/07/21 21:06 Blood Culture - Preliminary Blood NEGATIVE TO DATE 05/06/21 12:28 Blood Culture - Preliminary Blood Staphylococcus aureus 05/06/21 12:30 Urine Culture - Final Urine,Clean Catch A&P Assessment and plan (1) Sepsis: Status: Acute (2) Metabolic encephalopathy: Status: Acute (3) AMS (altered mental status): Status: Acute (4) DVT of lower extremity (deep venous thrombosis): Status: Acute Qualifiers: Affected thrombotic vein of extremity: popliteal Chronicity: acute Laterality: right Qualified Code(s): I82.431 - Acute embolism and thrombosis of right popliteal vein (5) Pneumonia: Status: Acute (6) Pleural effusion: Status: Acute (7) UTI (urinary tract infection): Status: Acute (8) LUCRECIA (acute kidney injury): Status: Acute (9) Acute urinary retention: Status: Acute (10) Elevated troponin: Status: Acute (11) Elevated d-dimer: Status: Acute (12) Hyperlipidemia: Status: Acute (13) Hypertension: Status: Acute Additional A&P Information 74-year gentleman with no significant past medical history other than hypertension hyperlipidemia presented to the ER today via EMS [place] found to have a creatinine of 3 and acute urinary retention. Sepsis: Ruled in because of tachycardia, leukocytosis, elevated lactate, altered mental status and acute kidney injury. Most likely secondary to UTI and pneumonia. Blood culture/urine 1 out of 4 bottles positive for staph aureus. Most likely contaminant. Repeat blood cultures have remained negative. Urine culture preliminary have been negative. Urine legionella, bacterial antigen negative. MRSA positive. COVID-19, flu swab negative. Remove isolation precaution. Procalcitonin elevated most likely secondary possible malignancy. Continue with DuoNebs 4 times daily, budesonide twice daily. Continue with vancomycin and ceftriaxone. We will continue ceftriaxone to finish a 5-day. 01/26. Finished 3-day course of azithromycin. Keep mean arterial pressure 65, saturation over 92%. DVT: D-dimer elevated. Lower limb Dopplers consistent with extensive DVT. Start on full dose Lovenox. Lovenox to be stopped on Tuesday morning for thoracocentesis on Tuesday. CTA rules out pulmonary embolism. Consistent with moderate pleural effusion on the right with multiple lymphadenopathy. Most likely from malignancy. Possible malignancy: Check QuantiFERON, peripheral smear, flow cytometry. PSA negative. Have consulted pulmonology for pleural tap for cytology. Have consulted surgery for lymph node biopsy. Patient is agreeable for further work-up. Acute kidney injury: Resolved. Most likely secondary urinary retention, dehydration and home medication chlorthalidone or lisinopril. Continue with IV hydration with normal saline at 50 cc/h. CT abdomen pelvis ruled out obstructive nephropathy. Repeat BMP daily for now. Will do voiding trial today. If patient fails to pass urine will have to recatheterize and then have patient follow-up with Dr. Ross as an o utpatient. Continue with Flomax 0.4 daily. Altered mental status: Resolving. Not sure what his confusion is baseline. Patient does not have any formal diagnosis of dementia. Most likely metabolic encephalopathy from uremia, possible sepsis. Frequent reorientation. Metabolic high anion gap acidosis: Resolved. Most likely secondary to acute kidney injury and elevated lactate. Elevated troponin: Denies any chest pain. Most likely secondary to LUCRECIA. Troponin cycle delta negative. Hypertension: Goal blood less than 140/90mmhg. Blood pressure soft for now. Hold off on home dose of amlodipine, lisinopril, chlorthalidone. CODE STATUS: Patient states he does not want to be on life support and would not want chest compressions. Allow natural . His healthcare proxy will be his brothers. Cardiac diet. Full dose Lovenox to help with DVT prophylaxis also. Famotidine for PUD prophylaxis Discharge planning: Given his advanced age, living by himself not sure if patient will be able to take care of himself going further. Concern about dementia. Physical therapy evaluation recommends SNF. Patient is agreeable to the same. Case management has been alerted. Attestations Medical Necessity Statement*: Requires further hospitalization for management of of sepsis, possible work-up of malignancy requiring thoracentesis on Tuesday, DVT, resolving LUCRECIA Time Spent in Patient Care: Greater than 35 minutes (>than 50% of time spent in counselling and/or direct pt care on unit) . Coding Level of Care Code Acute [employer] Manager for [facility] Fwd Diagnoses Sepsis A41.9 Metabolic encephalopathy G93.41 AMS (altered mental status) R41.82 DVT of lower extremity (deep venous thrombosis) I82.431 Affected thrombotic vein of extremity: popliteal Chronicity: acute Laterality: right Pneumonia J18.9 Pleural effusion J90 UTI (urinary tract infection) N39.0 LUCRECIA (acute kidney injury) N17.9 Acute urinary retention R33.8 Elevated troponin R77.8 Elevated d-dimer R79.89 Hyperlipidemia E78.5 Hypertension I10
[2021-05-09] MEDS: metoprolol tartrate 50 mg Tablet PO ×2 (10:05→20:53)
[2021-05-09] MEDS: aspirin 81 mg EC Tablet PO (10:05)
[2021-05-09] MEDS: tamsulosin 0.4 mg Capsule PO (10:06)
[2021-05-09] MEDS: atorvastatin 40 mg Tablet 20 MG PO (10:06)
[2021-05-09] MEDS: ferrous gluconate 324 mg Tablet PO ×2 (10:06→16:00)
[2021-05-09] MEDS: enoxaparin 60 mg/0.6 mL Syringe 55 MG SUBCUT ×2 (10:06→21:02)
--- NOTE | 2021-05-09 10:27 | PC.SOCIAL ---
Pg 2 IMM Explained to pt Pg 2 IMM. No questions voiced. Provided pt a copy. Initialed, dated, & timed a copy & placed in chart.
[2021-05-09] MEDS: cefTRIAXone 1,000 MG in sodium chloride 0.9% (plus) 100 ML 200 MG IV (14:02)
--- NOTE | 2021-05-09 15:00 | PC.NURSE ---
Received orders to d/c lawrence catheter.
[2021-05-09] MEDS: vancomycin 1,000 MG in sodium chloride 0.9% 250 ML 250 MG IV (15:59)
[2021-05-09 16:20] LABS: Vancomycin Trough 9.2 ug/mL (10-15)
[2021-05-10] VITALS (14 sets, daily range): BP systolic 100–150; BP diastolic 49–77; PULSE 100–127; RESP 16–35; TEMP 36.6–37; O2SAT 86–95; BMI 19.0
[2021-05-10] MEDS: famotidine 20 mg/2 mL INJ IVP ×2 (03:00→15:25)
[2021-05-10] MEDS: metoprolol tartrate 50 mg Tablet PO ×2 (08:03→22:37)
[2021-05-10] MEDS: ferrous gluconate 324 mg Tablet PO (08:03)
[2021-05-10] MEDS: atorvastatin 40 mg Tablet 20 MG PO (08:03)
[2021-05-10] MEDS: tamsulosin 0.4 mg Capsule PO (08:03)
[2021-05-10] MEDS: aspirin 81 mg EC Tablet PO (08:03)
--- NOTE | 2021-05-10 08:59 | PC.NURSE ---
difficulty swallowing pt had trouble swallowing his pills even with apple sauce. noted occasional cough during swallowing. Notified in person. Ordered received for speech eval.
[2021-05-10] MEDS: budesonide 0.5 mg/2 mL Neb INHALATION ×2 (09:50→20:34)
[2021-05-10] MEDS: ipratropium-albuterol 3 mL Neb INHALATION ×3 (09:50→20:34)
--- NOTE | 2021-05-10 12:18 | P.PN_ITS ---
Subjective Subjective: Interval history: No acute events overnight. Patient continues to be sluggish but AOx3. Denies any nausea or vomiting, headache. Noted to have some cough during eating today. Swallow evaluation done and diet change accordingly. Maintaining saturation during the day on room air overnight requires 2 L of oxygen supplementation to maintain saturation over 90%. Vitals/I&O/Wt Last Vital Signs Temp 98.6 F 05/10/21 10:55 Pulse 103 H 05/10/21 10:55 Resp 20 H 05/10/21 10:55 BP 105/73 05/10/21 10:55 Pulse Ox 87 L 05/10/21 10:55 05/09/21 05/10/21 05/10/21 22:59 06:59 14:59 Intake Total 1350 / 1468 Output Total 850 / 850 600 / 1450 200 / 200 Balance 500 / 618 -600 / 18 -200 / -200 Weight last 48 hrs Weight 55.066 kg Weight 54.885 kg Physical Exam Narrative: EXAM NARRATIVE: General: No acute distress, sluggish, pleasantly confused, AO x2, tangential thoughts HEENT: PERRLA, pupils bilaterally equal and reactive Chest: Normal vesicular breath sounds, occasional rhonchi present on the right side, fine crackles present at the bases, equal good air entry bilaterally CVS: S1-S2 regular, no murmurs,tachycardia, no gallops, no rubs Abdomen: Soft, nontender, no organomegaly, bowel sounds present Neuro: No focal deficits, no facial deformity, AO x3, power 5/5 in all limbs Urinary Catheter Management^: Dela Cruz: Cath Placed During This Visit: yes, but has since been removed by the nurse Reason for Continuing Indwelling Catheter: Acute Urinary Retention or Obstruction Urinary Catheter Date of Insertion: 05/10/21 Urinary Catheter Time of Insertion: 00:05 Date Urinary Catheter Removed: 05/09/21 Time Urinary Catheter Discontinued: 15:00 Data : 05/09/21 04:24 05/09/21 04:24 Micro: Microbiology 05/06/21 12:28 Blood Blood Culture - Preliminary Staphylococcus aureus 05/07/21 21:16 Blood Blood Culture - Preliminary NEGATIVE TO DATE 05/07/21 21:06 Blood Blood Culture - Preliminary NEGATIVE TO DATE 05/06/21 12:30 Urine,Clean Catch Urine Culture - Final 05/06/21 18:00 Nose MRSA Culture - Final 05/06/21 10:26 Blood Blood Culture - Preliminary NEGATIVE TO DATE 05/06/21 12:30 Urine Kidney Bacterial Antigens - Final 05/06/21 12:30 Urethra Legionella Urinary Antigen - Final A&P Assessment and plan (1) Sepsis: Status: Acute (2) Metabolic encephalopathy: Status: Acute (3) AMS (altered mental status): Status: Acute (4) DVT of lower extremity (deep venous thrombosis): Status: Acute Qualifiers: Affected thrombotic vein of extremity: popliteal Chronicity: acute Laterality: right Qualified Code(s): I82.431 - Acute embolism and thrombosis of right popliteal vein (5) Pneumonia: Status: Acute (6) Pleural effusion: Status: Acute (7) UTI (urinary tract infection): Status: Acute (8) LUCRECIA (acute kidney injury): Status: Acute (9) Acute urinary retention: Status: Acute (10) Elevated troponin: Status: Acute (11) Elevated d-dimer: Status: Acute (12) Hyperlipidemia: Status: Acute (13) Hypertension: Status: Acute Additional A&P Information 74-year gentleman with no significant past medical history other than hypertension hyperlipidemia presented to the ER today via EMS [place] found to have a creatinine of 3 and acute urinary retention. Sepsis: Ruled in because of tachycardia, leukocytosis, elevated lactate, altered mental status and acute kidney injury. Most likely secondary to UTI and pneumonia. Blood culture/urine 1 out of 4 bottles positive for staph aureus. Most likely contaminant. Repeat blood cultures have remained negative. Urine culture preliminary have been negative. Urine legionella, bacterial antigen negative. MRSA positive. COVID-19, flu swab negative. Remove isolation precaution. Procalcitonin elevated most likely secondary possible malignancy. Continue with DuoNebs 4 times daily, budesonide twice daily. Stop ceftriaxone as patient has already finished 5-day course. Azithromycin stopped 2 days ago. Continue vancomycin for 1 more day to finish a 5-day course. Keep mean arterial pressure 65, saturation over 92%. DVT: D-dimer elevated. Lower limb Dopplers consistent with extensive DVT. Start on full dose Lovenox. Lovenox on hold today for procedure tomorrow. Can reinitiate Eliquis 10 mg twice daily post procedure. CTA rules out pulmonary embolism. Consistent with moderate pleural effusion on the right with multiple lymphadenopathy. Most likely from malignancy. Possible malignancy: Check QuantiFERON, peripheral smear, flow cytometry. PSA negative. Plan for thoracentesis on Tuesday morning. Patient is agreeable for further work-up. Acute kidney injury: Resolved. Most likely secondary urinary retention, dehydration and home medication chlorthalidone or lisinopril. Continue with IV hydration with normal saline at 50 cc/h. CT abdomen pelvis ruled out obstructive nephropathy. Repeat BMP daily for now. Will do voiding trial today. If patient fails to pass urine will have to recatheterize and then have patient follow-up with Dr. Ross as an outpatient. Continue with Flomax 0.4 daily. Altered mental status: Resolving. Not sure what his confusion is baseline. Patient does not have any formal diagnosis of dementia. Most likely metabolic encephalopathy from uremia, possible sepsis. Frequent reorientation. Metabolic high anion gap acidosis: Resolved. Most likely secondary to acute k idney injury and elevated lactate. Elevated troponin: Denies any chest pain. Most likely secondary to LUCRECIA. Troponin cycle delta negative. Hypertension: Goal blood less than 140/90mmhg. Blood pressure soft for now. Hold off on home dose of amlodipine, lisinopril, chlorthalidone. CODE STATUS: Patient states he does not want to be on life support and would not want chest compressions. Allow natural . His healthcare proxy will be his brothers. Cardiac diet. Full dose Lovenox to help with DVT prophylaxis also. Famotidine for PUD prophylaxis Discharge planning: Plan to discharge to [facility]. Patient has been accepted. Most likely tomorrow after thoracentesis. Attestations Medical Necessity Statement*: Requires further hospitalization for management of DVT, sluggish mental status secondary to sepsis, malignancy work-up with thoracentesis to be done tomorrow while safe discharge planning is sought. Time Spent in Patient Care: Greater than 35 minutes (>than 50% of time spent in counselling and/or direct pt care on unit) . Coding Level of Care Code Acute [employer] Coach for [facility] Fwd Diagnoses Sepsis A41.9 Metabolic encephalopathy G93.41 AMS (altered mental status) R41.82 DVT of lower extremity (deep venous thrombosis) I82.431 Affected thrombotic vein of extremity: popliteal Chronicity: acute Laterality: right Pneumonia J18.9 Pleural effusion J90 UTI (urinary tract infection) N39.0 LUCRECIA (acute kidney injury) N17.9 Acute urinary retention R33.8 Elevated troponin R77.8 Elevated d-dimer R79.89 Hyperlipidemia E78.5 Hypertension I10
--- NOTE | 2021-05-10 14:30 | PC.NURSE ---
Pt pulled his IV out in his left upper arm. cath tip intact.
[2021-05-10] MEDS: cefTRIAXone 1,000 MG in sodium chloride 0.9% (plus) 100 ML 200 MG IV (18:28)
[2021-05-10] MEDS: vancomycin 1,000 MG in sodium chloride 0.9% 250 ML 250 MG IV (19:28)
[2021-05-10] MEDS: sodium chloride 0.9% 1,000 ML 50 ML IV (19:32)
[2021-05-11] VITALS (15 sets, daily range): BP systolic 93–144; BP diastolic 55–82; PULSE 90–118; RESP 18–30; TEMP 36.4–36.9; O2SAT 4–98
--- NOTE | 2021-05-11 01:48 | PC.NURSE ---
Bedside report received from Raul RN. Patient is resting in bed. No C/O of pain or other needs at this time.
[2021-05-11] MEDS: sodium chloride 0.9% 1,000 ML 50 ML IV ×2 (02:40→21:06)
[2021-05-11] MEDS: famotidine 20 mg/2 mL INJ IVP ×2 (02:40→16:16)
[2021-05-11 08:01] LABS: Basophils # 0.1 10^3/uL (0.0-0.1); Basophils % 0.5 %; Eosinophils # 0.3 10^3/uL (0.0-0.8); Eosinophils % 2.1 %; Hematocrit 32.6 % (42.0-52.0); Hemoglobin 10.6 g/dL (11.7-16.6); Lymphocytes # 1.3 10^3/uL (0.8-4.8); Lymphocytes % 9.7 %; Mean Corpuscular HGB Conc 32.5 g/dL (30.0-36.0); Mean Corpuscular Hemoglobin 30.2 pg (28.0-34.0); Mean Corpuscular Volume 92.9 fL (80-94); Monocytes # 1.4 10^3/uL (0.2-0.9); Monocytes % 10.6 %; Neutrophils # 10.14 10^3/uL (1.8-7.7); Neutrophils % 75.2 %; Nucleated Red Blood Cells % 0 %; Platelet Count 189 10^3/cmm (130-400); Red Blood Count 3.51 10^6/uL (4.1-5.3); Red Cell Distribution Width 14.1 % (12.1-15.1); White Blood Count 13.5 10^3/uL (4.0-10.0)
--- NOTE | 2021-05-11 09:51 | PC.SOCIAL ---
IMM Update Pg.2 of IMM updated and reviewed with patient, verbalized understanding. Copy provided.
[2021-05-11 10:02] LABS: Chloride 106 mmol/L (98-107); Potassium 3.6 mmol/L (3.5-5.1); Sodium 136 mmol/L (136-145)
[2021-05-11 10:18] LABS: Alanine Aminotransferase 36 U/L (0-41); Alkaline Phosphatase 90 IU/L (40-130); Anion Gap 14.6 (5-19); Aspartate Amino Transferase 52 U/L (0-40); Carbon Dioxide 19 mmol/L (22-29); Glucose 115 mg/dL (65-115); Total Bilirubin 0.6 mg/dL (0.15-1.2); Total Protein 6.6 g/dL (6.6-8.7)
[2021-05-11 10:40] LABS: Calcium 7.7 mg/dL (8.5-10.5)
--- NOTE | 2021-05-11 10:54 | PC.NURSE ---
Time-out for thoracentesis Dr. Penar at bedside. verified pt name, and site- right sided thoracentesis ultrasound guide. pt assisted to proper position. 1500 ml of bright red pleural fluid drained. pt tolerated well during the procedure. breathing and air movement improved.
[2021-05-11 11:13] LABS: Albumin Level 2.4 g/dL (3.5-5.2); Blood Urea Nitrogen 20 mg/dL (8-23); Globulin 4.2 g/dL (1.3-4.6); Osmolality Calculated 286 mOsm/kg (285-295)
--- NOTE | 2021-05-11 11:24 | PM.ACPR ---
Procedure/Consent Time out: Time Out Performed: Yes Consent: Consent for Procedure: Consent obtained from patient, Risks & Benefits reviewed and Agrees to proceed with procedure Procedure Narrative: Pulmonary & Critical Care Medicine Procedure -right side thoracentesis Procedure: Right chest thoracentesis Indication: Right pleural effusion [employer] Sales(s): Triston Alicea MD Consent: Signed and placed in chart Anesthesia: 10 cc 1% lidocaine without epinephrine Description: Right pleural effusion was localized using ultrasound guidance and the site was marked accordingly. After chlorhexidine skin prep, area was draped in a sterile manner. 1% lidocaine was used for local anesthesia. 6 Kyr[place]z thoracentesis catheter was then inserted into the pleural space with aspiration of 1500 cc of pleural fluid. Appearance was hemorrhagic. Ultrasound guidance used: Yes. Image saved to ultrasound machine yes. EBL: 10 cc Complications: none post thora PCXR: None Acute Procedures Epistaxis Control: Time out performed: Yes
--- NOTE | 2021-05-11 11:26 | XRR_ITS ---
PROCEDURE INFORMATION: Exam: XR Chest Exam date and time: 05/11/2021 11:26 AM Age: 80 years old Clinical indication: Device placement; Other: Thoracentesis; Additional info: Post thoracentesis TECHNIQUE: Imaging protocol: XR of the chest. Views: 1 view. COMPARISON: CR XR chest 1V portable [id number] 05/06/2021 10:19 AM FINDINGS: Lungs: Right hilar vascular and interstitial congestion is seen increased since prior examination. Low lung volumes are present. A skin fold is seen in the left lung. Pulmonary bronchovascular markings extend past this location to the outer portion of the lung. Pleural spaces: Unremarkable. No pleural effusion. No pneumothorax. Heart/Mediastinum: Unremarkable. No cardiomegaly. Bones/joints: Unremarkable. XR/XR chest 1V portable [id number] IMPRESSION: 1. Right high perihilar vascular and interstitial congestion increased since prior. 2. Low lung volumes . 3. Otherwise negative examination
--- NOTE | 2021-05-11 11:59 | PM.PN ---
Subjective Subjective: Interval history: Reports overall he is doing all right. Awaiting procedure this morning with the lung doctor to drain fluid. Denies chest pain or pressure. States breathing is comfortable with oxygen. Vitals/I&O/Wt Last Vital Signs Temp 98 F 05/11/21 09:48 Pulse 118 H 05/11/21 09:48 Resp 30 H 05/11/21 09:48 BP 144/82 05/11/21 09:48 Pulse Ox 4 L 05/11/21 09:50 05/10/21 05/11/21 05/11/21 22:59 06:59 14:59 Intake Total 740 / 840 476.667 / 1316.667 360 / 360 Output Total 400 / 600 300 / 900 Balance 340 / 240 176.667 / 416.667 360 / 360 Weight last 48 hrs Weight 55.338 kg Weight 55.066 kg Physical Exam Const: COMMON NORMALS: no acute distress GENERAL APPEARANCE: frail appearing HENMT: COMMON NORMALS: oropharynx normal Neck/C-Spine: COMMON NORMALS: no JVD Resp: COMMON NORMALS: normal respiratory effort AUSCULTATION: crackles Laterality: right Cardio: COMMON NORMALS: no JVD, regular rhythm, S1 normal heart sound present, S2 normal heart sound present and No murmurs present (Cardio) RHYTHM: regular rhythm HEART SOUNDS: S1 normal heart sound present and S2 normal heart sound present GI: COMMON NORMALS: Normal to inspection, nondistended, normoactive bowel sounds present, Soft to palpation and non-tender PALPATION: Yes Soft to palpation Extremity: COMMON NORMALS: no joint enlargement and no pedal edema Neuro: COMMON NORMALS: moves all extremities Skin: COMMON NORMALS: no rashes or lesions noted GENERAL SKIN EXAM: no rashes or lesions noted Urinary Catheter Management^: Dela Cruz: Cath Placed During This Visit: yes, but has since been removed by the nurse Reason for Continuing Indwelling Catheter: Acute Urinary Retention or Obstruction Urinary Catheter Date of Insertion: 05/10/21 Urinary Catheter Time of Insertion: 00:05 Date Urinary Catheter Removed: 05/09/21 Time Urinary Catheter Discontinued: 15:00 Data : 05/11/21 06:46 05/11/21 06:46 Micro: Microbiology 05/06/21 10:26 Blood Culture - Final Blood NO GROWTH AFTER 5 DAYS A&P Assessment and plan (1) Hypoxia: Continues to require several liters of oxygen. The undergoing thoracentesis, diagnostic and therapeutic, sample to be sent for cytology. Anticoagulation had been held. To be resumed after procedure. Monitor for bleeding. Monitor oxygenation overnight. Recheck hemoglobin. Discussed with pulmonology. Status: Acute (2) Pneumonia: Persistent hypoxia. As above. Continue antibiotic coverage with ceftriaxone, vancomycin. Oxygen support. Breathing treatments. Status: Acute (3) Sepsis: Persistent leukocytosis, worse today 13.5. Follow-up pleural fluid analysis. Sinus tachycardia persists. No PE on CTA. Anticoagulation for DVT held for thoracentesis. To be resumed after procedure. Difficult to say if tachycardia related to infection and/or possible malignancy. Continue antibiotics as above. Continue to monitor. Status: Acute (4) Metabolic encephalopathy: Appears improved. He is awake, alert. Unclear baseline. Not formally diagnosed with dementia. Continue to reorient. Treatment as above. Supportive care. After discharge continue mobilization, rehabilitation at SNF. Status: Acute (5) AMS (altered mental status): Improved. Resolving, as above. Status: Acute (6) DVT of lower extremity (deep venous thrombosis): Resume anticoagulation after thoracentesis. No PE on CTA. Status: Acute Qualifiers: Affected thrombotic vein of extremity: popliteal Chronicity: acute Laterality: right Qualified Code(s): I82.431 - Acute embolism and thrombosis of right popliteal vein (7) Pleural effusion: Possible parapneumonic, possible malignancy. Pending thoracentesis and additional evaluation. Status: Acute (8) UTI (urinary tract infection): Completed 5-day course of ceftriaxone, although urine culture unrevealing. Status: Acute (9) LUCRECIA (acute kidney injury): Resolved Status: Acute (10) Acute urinary retention: Dela Cruz catheter removed 05/10. Watch out for recurrence of retention. Flomax Status: Acute (11) Elevated troponin: Status: Acute (12) Elevated d-dimer: Secondary to lower extremity DVT. Continue to coagulation once thoracentesis completed. Status: Acute (13) Hyperlipidemia: Status: Acute (14) Hypertension: BP is variable, but mostly on the soft side. Status: Acute Additional A&P Information 74-year gentleman with no significant past medical history other than hypertension hyperlipidemia presented to the ER [place] found to have a creatinine of 3 and acute urinary retention. Blood culture/urine 1 out of 4 bottles positive for staph aureus. Most likely contaminant. Repeat blood cultures have remained negative. Urine culture preliminary have been negative. Urine legionella, bacterial antigen negative. MRSA positive. COVID-19, flu swab negative. Remove isolation precaution. Procalcitonin elevated most likely secondary possible malignancy. Possible malignancy: Thoracentesis today. Pending additional cytology studies. QuantiFERON, peripheral smear, flow cytometry. PSA negative. Metabolic high anion gap acidosis: Resolved. Elevated troponin: Suspected secondary to demand ischemia with hypoxia, acute kidney injury. Chest pain-free. Discharge planning: Pending prior authorization arrangements to discharge to [facility]. Attestations Medical Necessity Statement*: Continue admission for assessment of management of pleural effusion, possibly parapneumonic, possibly malignancy, with ongoing hypoxia, continue antibiotic treatment for pneumonia, resumption of anticoagulation after procedure, discharge planning and arrangements. 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
[2021-05-11] MEDS: ipratropium-albuterol 3 mL Neb INHALATION ×3 (12:05→21:57)
[2021-05-11 12:12] LABS: Apprearance, Body Fluid CLOUDY; Color, Body Fluid RED
[2021-05-11 12:18] LABS: Body Fluid Polynuclear #Cells 3.291; Body Fluid WBC 5409 /uL; Monocytes # Body Fluid 2.118
[2021-05-11] MEDS: tamsulosin 0.4 mg Capsule PO (12:23)
[2021-05-11] MEDS: metoprolol tartrate 50 mg Tablet PO ×2 (12:23→21:05)
[2021-05-11] MEDS: aspirin 81 mg EC Tablet PO (12:23)
[2021-05-11] MEDS: atorvastatin 40 mg Tablet 20 MG PO (12:23)
[2021-05-11 13:38] LABS: Albumin Body Fluid 1.6 g/dL; Amylase Body Fluid 40 U/L; Cholesterol Body Fluid 46 mg/dL (0-200); Fluid Alkaline Phos. 304 IU/L; LDH Body Fluid 501 U/L; Triglycerides Body Fluid 18 mg/dL (0-150); Uric Acid Body Fluid 6 mg/dL
[2021-05-11 14:07] LABS: Quantiferon Mitogen 9.42 IU/mL; Quantiferon Nil 0.01 IU/mL; Quantiferon TB Gold NEGATIVE (NEGATIVE)
[2021-05-11] MEDS: enoxaparin 60 mg/0.6 mL Syringe 55 MG SUBCUT (16:17)
[2021-05-11] MEDS: vancomycin 1,000 MG in sodium chloride 0.9% 250 ML 250 MG IV (17:07)
[2021-05-11] MEDS: ferrous gluconate 324 mg Tablet PO (18:16)
--- NOTE | 2021-05-11 21:17 | P.PN_ITS ---
Subjective Subjective: Interval history: Seen at bedside today morning Right pleural effusion and pain 1500 cc hemorrhagic fluid-sent for cytology and various studies patient is extremely weak and deconditioned Offers no new complaints; breathing comfortably with 2 L nasal cannula saturating 95% Labs and imaging reviewed Medications: Reviewed: Yes Vitals/I&O/Wt Last Vital Signs Temp 97.9 F 05/11/21 19:40 Pulse 109 H 05/11/21 19:40 Resp 24 H 05/11/21 19:40 BP 106/66 05/11/21 19:40 Pulse Ox 98 05/11/21 19:40 05/11/21 05/11/21 05/11/21 06:59 14:59 22:59 Intake Total 476.667 / 1316.667 360 / 360 1531.667 / 1891.667 Output Total 300 / 900 600 / 600 Balance 176.667 / 416.667 360 / 360 931.667 / 1291.667 Weight last 48 hrs Weight 122 lb Weight 121 lb 6.4 oz Physical Exam Narrative: EXAM NARRATIVE: General: alert, NAD HEENT: conj clear, EOMI, PERRL, mmm, Neck: supple, no meningismus Heme: no cervical LAP Pulmonary: Reduced breath sounds on right lower lung Cardiovascular: rrr, nl s1s2, no mrg Abdomen: soft, nt, nd, no r/g, bs+ Extremities: pulses +, no edema, no c/c : no CVA tenderness Skin: intact, no rash MSK: no back or neck pain Neurologic: grossly intact Urinary Catheter Management^: Dela Cruz: Cath Placed During This Visit: yes, but has since been removed by the nurse Reason for Continuing Indwelling Catheter: Acute Urinary Retention or Obstruction Urinary Catheter Date of Insertion: 05/10/21 Urinary Catheter Time of Insertion: 00:05 Date Urinary Catheter Removed: 05/09/21 Time Urinary Catheter Discontinued: 15:00 Data : 05/11/21 06:46 05/11/21 06:46 Other Labs: Laboratory Results WBC 13.5 10^3/uL (4.0-10.0) H 05/11/21 06:46 RBC 3.51 10^6/uL (4.1-5.3) L 05/11/21 06:46 Hgb 10.6 g/dL (11.7-16.6) L 05/11/21 06:46 Hct 32.6 % (42.0-52.0) L 05/11/21 06:46 MCV 92.9 fL (80-94) 05/11/21 06:46 MCH 30.2 pg (28.0-34.0) 05/11/21 06:46 MCHC 32.5 g/dL (30.0-36.0) 05/11/21 06:46 RDW 14.1 % (12.1-15.1) 05/11/21 06:46 Plt Count 189 10^3/cmm (130-400) 05/11/21 06:46 MPV 12.0 fL (7.4-10.4) H 05/11/21 06:46 Neut % (Auto) 75.2 % 05/11/21 06:46 Lymph % (Auto) 9.7 % 05/11/21 06:46 [place] % (Auto) 10.6 % 05/11/21 06:46 Eos % (Auto) 2.1 % 05/11/21 06:46 Baso % (Auto) 0.5 % 05/11/21 06:46 Neut # (Auto) 10.14 10^3/uL (1.8-7.7) H 05/11/21 06:46 Lymph # (Auto) 1.3 10^3/uL (0.8-4.8) 05/11/21 06:46 [place] # (Auto) 1.4 10^3/uL (0.2-0.9) H 05/11/21 06:46 Eos # (Auto) 0.3 10^3/uL (0.0-0.8) 05/11/21 06:46 Baso # (Auto) 0.1 10^3/uL (0.0-0.1) 05/11/21 06:46 Nucleated RBC % (auto) 0 % 05/11/21 06:46 Nucleated RBCs # 0.0 /100WBC 05/11/21 06:46 Fibrinogen 163 mg/dL (174-498) L 05/06/21 14:11 D-Dimer >= 20.00 ug/mIFEU (0-0.59) H 05/06/21 14:11 Specimen Type Arterial 05/06/21 10:42 Sample Site Brachial, right 05/06/21 10:42 ABG pH 7.39 (7.35-7.45) 05/06/21 10:42 ABG pCO2 27.9 mmHg (35-45) L 05/06/21 10:42 ABG pO2 59.6 mmHg (80.0-100.0) L 05/06/21 10:42 ABG HCO3 17.0 mmol/L (22-26) L 05/06/21 10:42 ABG O2 Saturation 90.1 05/06/21 10:42 ABG Base Excess -6.5 mmol/L (-2.0-2.0) L 05/06/21 10:42 Agustín Test N/a 05/06/21 10:42 A-a O2 Gradient 7.2 mmHg (5-10) 05/06/21 10:42 Hematocrit 38.8 % (42-52) L 05/06/21 10:42 Hgb O2 Saturation 88.6 % (95-100) L 05/06/21 10:42 Carboxyhemoglobin 1.0 %THgb (0.4-20.1) 05/06/21 10:42 Methemoglobin 0.6 % (0.4-1.5) 05/06/21 10:42 Total Hemoglobin 12.6 g/dL (14-18) L 05/06/21 10:42 Sodium 139.0 mmol/L (131-143) 05/06/21 10:42 Potassium 3.9 mmol/L (3.5-5.0) 05/06/21 10:42 Glucose 120.0 mg/dL (70-115) H 05/06/21 10:42 Ionized Calcium 1.1 mmol/L (1.1-1.4) 05/06/21 10:42 O2 Delivery Device Room air 05/06/21 10:42 FiO2 21.0 % 05/06/21 10:42 Cpr Ambulance Driver ID Amh 05/06/21 10:42 Sodium 136 mmol/L (136-145) 05/11/21 06:46 Potassium 3.6 mmol/L (3.5-5.1) 05/11/21 06:46 Chloride 106 mmol/L (98-107) 05/11/21 06:46 Carbon Dioxide 19 mmol/L (22-29) L 05/11/21 06:46 Anion Gap 14.6 (5-19) 05/11/21 06:46 BUN 20 mg/dL (8-23) 05/11/21 06:46 Creatinine 1.0 mg/dL (0.7-1.2) 05/11/21 06:46 GFR Calculation Not Reportable 05/11/21 06:46 Glucose 115 mg/dL (65-115) 05/11/21 06:46 Estimat Average Glucose 94 05/07/21 05:20 Hemoglobin A1c 4.9 % (4.0-6.0) 05/07/21 05:20 Calculated Osmolality 286 mOsm/kg (285-295) 05/11/21 06:46 Lactic Acid 2.3 mmol/L (0.5-2.2) H 05/06/21 10:26 Lactic Acid (Sepsis) 1.4 mmol/L (0.5-2.2) 05/06/21 14:11 Calcium 7.7 mg/dL (8.5-10.5) L 05/11/21 06:46 Magnesium 2.8 mg/dL (1.7-2.3) H 05/06/21 14:11 Iron 23 ug/dL (59-158) L 05/06/21 14:11 TIBC 167 mcg/dl 05/06/21 14:11 % Saturation 13.7 % (20-50) L 05/06/21 14:11 Unsat Iron Binding 144 ug/dL (112-347) 05/06/21 14:11 Ferritin 2500 ng/mL (30-400) H 05/06/21 14:11 Total Bilirubin 0.6 mg/dL (0.15-1.2) 05/11/21 06:46 AST 52 U/L (0-40) H 05/11/21 06:46 ALT 36 U/L (0-41) 05/11/21 06:46 Alkaline Phosphatase 90 IU/L (40-130) 05/11/21 06:46 Lactate Dehydrogenase 282 U/L (135-225) H 05/06/21 14:11 Creatine Kinase 65 U/L (39-308) 05/06/21 14:11 Troponin T Baseline 677 ng/L (0-15) H* 05/06/21 10:26 Troponin T 120 Minute 633.6 ng/L (0-15) H 05/06/21 12:28 Delta Troponin T -43.4 ABS# (0-10) L 05/06/21 12:28 Troponin T Hi Sens 6Hr 476.5 ng/L (0-15) H 05/06/21 16:30 Troponin T Hi Sens 6Hr Delta -200.5 ng/L (0-12) L 05/06/21 16:30 C-Reactive Protein 74.5 mg/L (0.0-4.9) H 05/06/21 14:11 NT-Pro-B Natriuret Pep 774 pg/mL (0-450) H 05/06/21 14:11 Total Protein 6.6 g/dL (6.6-8.7) 05/11/21 06:46 Albumin 2.4 g/dL (3.5-5.2) L 05/11/21 06:46 Globulin 4.2 g/dL (1.3-4.6) 05/11/21 06:46 Triglycerides 125 mg/dL (0-150) 05/07/21 05:20 Cholesterol 129 mg/dL (0-200) 05/07/21 05:20 LDL Cholesterol, Calc 76 mg/dL (50-129) 05/07/21 05:20 Total VLDL Cholesterol 25 mg/dL (0-30) 05/07/21 05:20 HDL Cholesterol 28 mg/dL (60-100) L 05/07/21 05:20 Cholesterol/HDL Ratio 4.61 mg/dL (1.0-5.00) 05/07/21 05:20 Lipase 96 U/L (13-60) H 05/06/21 10:26 Prostate Specific Ag 0.882 ng/mL (0-4) 05/06/21 14:11 Procalcitonin 67.43 ng/mL (0-0.5) H 05/08/21 06:46 TSH 4.02 uIU/mL (0.27-4.20) 05/06/21 14:11 Urine Color Yellow (Yellow) 05/06/21 12:30 Urine Appearance Clear (CLEAR) 05/06/21 12:30 Urine pH 5 (5-7) 05/06/21 12:30 Ur Specific [place] 1.020 (1.005-1.030) 05/06/21 12:30 Urine Protein Trace (Negative) 05/06/21 12:30 Urine Glucose (UA) Norm (Normal) 05/06/21 12:30 Urine Ketones 1+ (Negative) H 05/06/21 12:30 Urine Blood 3+ (Negative) H 05/06/21 12:30 Urine Nitrate Positive (Negative) H 05/06/21 12:30 Urine Bilirubin Neg (Negative) 05/06/21 12:30 Urine Urobilinogen Norm mg/dL (Negative) 05/06/21 12:30 Ur Leukocyte Esterase 1+ (Negative) H 05/06/21 12:30 Urine RBC 5-10 /hpf (0-2) H 05/06/21 12:30 Urine WBC 0-4 /hpf (0-5) H 05/06/21 12:30 Ur Squamous Epith Cells 0-4 /hpf (0-5) H 05/06/21 12:30 Amorphous Sediment Not Reportable 05/06/21 12:30 Urine Bacteria 3+ /hpf (NONE) H 05/06/21 12:30 Ur Random Sodium 47 mmol/L 05/06/21 12:30 Ur Random Potassium 37 mmol/L 05/06/21 12:30 Ur Random Chloride 19 mmol/L 05/06/21 12:30 Urine Creatinine 179 mg/dL (39-259) 05/06/21 12:30 Fluid Color Red 05/11/21 10:55 Fluid Appearance Cloudy 05/11/21 10:55 Fluid Specific Grav 1.010 05/11/21 10:55 Fluid pH 8.0 05/11/21 10:55 Fluid WBC 5409 /uL 05/11/21 10:55 Fluid RBC 38.000 10^3/uL 05/11/21 10:55 Fld Polynuclear WBCs # 3.291 05/11/21 10:55 Fld Polynuclear WBCs % 60.800 % 05/11/21 10:55 Fl Mononucl WBCs #(Auto) 2.118 05/11/21 10:55 Fl Mononuclear % Auto 39.200 % 05/11/21 10:55 Fluid Glucose 104.0 mg/dL 05/11/21 10:55 Fluid Albumin 1.6 g/dL 05/11/21 10:55 Fluid LDH 501 U/L 05/11/21 10:55 Fluid Amylase 40 U/L 05/11/21 10:55 Fluid Alk Phosphatase 304 IU/L 05/11/21 10:55 Fluid Cholesterol 46 mg/dL (0-200) 05/11/21 10:55 Fluid Triglycerides 18 mg/dL (0-150) 05/11/21 10:55 Fluid Uric Acid 6 mg/dL 05/11/21 10:55 Pleural Total Protein 4.0 g/dL 05/11/21 10:55 Vancomycin Trough 9.2 ug/mL (10-15) L 05/09/21 15:34 Urine Opiates Screen Negative ng/mL (Negative) 05/06/21 12:30 Ur Barbiturates Screen Negative ng/mL (Negative) 05/06/21 12:30 Ur Phencyclidine Scrn Negative ng/mL (Negative) 05/06/21 12:30 Ur Amphetamines Screen Negative ng/mL (Negative) 05/06/21 12:30 U Benzodiazepines Scrn Negative ng/mL (Negative) 05/06/21 12:30 Urine Cocaine Screen Negative ng/mL (Negative) 05/06/21 12:30 U Marijuana (THC) Screen Negative ng/mL (Negative) 05/06/21 12:30 Serum Ketones Negative (Negative) 05/06/21 10:26 Leuk/Lym Spec Type Cancelled 05/11/21 06:46 Leuk/Lym Clinical Info Cancelled 05/11/21 06:46 Leuk/Lymph Viability Cancelled 05/11/21 06:46 Leuk/Lym Sample Descrip Cancelled 05/11/21 06:46 Leuk/Lym # of Markers Cancelled 05/11/21 06:46 Leuk/Lym Markers Cancelled 05/11/21 06:46 Leuk/Lym Gating Strategy Cancelled 05/11/21 06:46 Leuk/Lym Interpretation Cancelled 05/11/21 06:46 Nasal/Oral COVID-19 PCR Not detected 05/06/21 18:00 Influenza Type A Ag Negative (Negative) 05/06/21 18:11 Influenza Type B Ag Negative (Negative) 05/06/21 18:11 SARS-CoV-2 Ag (Rapid) Negative (Negative) 05/06/21 18:00 TB (QFT) Gold In Tube Negative (NEGATIVE) 05/08/21 16:23 TB Test (QFT) Nil 0.01 IU/mL 05/08/21 16:23 TB Test (QFT) Mitogen 9.42 IU/mL 05/08/21 16:23 TB Test Mitogen - Nil 0.00 IU/mL 05/08/21 16:23 TB Test TB - Nil 0.00 IU/mL 05/08/21 16:23 Impressions Abdomen/Pelvis CT 05/06/21 11:25 IMPRESSION: 1. Markedly distended urinary bladder with contrast. Mild enlargement of the prostate measuring 4 cm. 2. Noncontrast kidneys are normal in appearance. No retained contrast in the kidneys or ureters. No obstructing renal or ureteral calculi. 3. Stable 2.7 cm left renal cyst. 4. Stable infrarenal abdominal aortic aneurysm measuring 3.4 x 3.6 CM. 5. Small right pleural effusion with patchy infiltrates in right lower lobe unchanged from previous. Recommend Correlation for pneumonia. Head CT 05/06/21 11:25 IMPRESSION: 1. No evidence of intracranial hemorrhage or mass effect. 2. Moderate small vessel changes. Moderate parenchymal volume loss. 3. Chronic infarct left lateral basal ganglia. 4. No acute intracranial findings. Chest CTA 05/08/21 08:46 IMPRESSION: 1. Since the prior study development of anasarca and fluid overload. 2. Development of a moderate-sized RIGHT pleural effusion with compressive atelectasis of the RIGHT lower lobe and partial atelectasis RIGHT upper and RIGHT middle lobes. 3. LEFT axillary, mediastinal and hilar lymphadenopathy. Increased soft tissue at the RIGHT hilum. Adenopathy or mass not excluded. Recommend bronchoscopy for further evaluation. 4. Diffuse soft tissue edema and interstitial thickening throughout the RIGHT lung. 5. Indeterminate lymph nodes at the celiac axis and SMA. 6. No pulmonary embolism. 7. Small pericardial effusion. Chest X-Ray 05/11/21 11:26 IMPRESSION: 1. Right high perihilar vascular and interstitial congestion increased since prior. 2. Low lung volumes . 3. Otherwise negative examination Micro: Microbiology 05/06/21 12:28 Blood Culture - Final Blood Staphylococcus aureus 05/06/21 10:26 Blood Culture - Final Blood NO GROWTH AFTER 5 DAYS A&P Assessment and plan (1) Sepsis with acute hypoxic respiratory failure: Status: Acute Qualifiers: Sepsis type: sepsis due to unspecified organism Severe sepsis shock status: without septic shock Qualified Code(s): A41.9 - Sepsis, unspecified organism; R65.20 - Severe sepsis without septic shock; J96.01 - Acute respiratory failure with hypoxia (2) Elevated troponin: Status: Acute (3) Pneumonia: Status: Acute (4) AMS (altered mental status): Status: Acute (5) UTI (urinary tract infection): Status: Acute (6) LUCRECIA (acute kidney injury): Status: Acute (7) Lymphadenopathy, axillary: Status: Acute (8) Lymphadenopathy, mediastinal: Status: Acute (9) DVT of lower extremity (deep venous thrombosis): Status: Acute Qualifiers: Affected thrombotic vein of extremity: popliteal Chronicity: acute Laterality: right Qualified Code(s): I82.431 - Acute embolism and thrombosis of right popliteal vein Overall: 80-year-old male admitted with altered mental status, nausea, vomiting, diarrhea found to require 2 L oxygen and UA revealing UTI, MRSA nares positive, lower extremity Doppler positive for acute DVT involving right popliteal and proximal posterior tibial vein causing total occlusion, CT chest, showing moderate pleural effusion with compressive atelectasis of the RIGHT lower lobe and partial atelectasis RIGHT upper and RIGHT middle lobes, LEFT axillary, mediastinal and hilar lymphadenopathy. Increased soft tissue at the RIGHT hilum. -Altered mental status likely secondary to sepsis UTI/pneumonia-improving with antibiotics -Currently in no respiratory distress, 2 L nasal cannula-saturating 95% -MRSA nares positive-on contact isolation-continue vancomycin -UA showed UTI, cultures negative, currently on ceftriaxone-to complete 5 days -Urine bacterial antigens, Legionella antigen negative; procalcitonin significantly high suggestive of bacterial infection versus malignancy vs LUCRECIA (creatinine 3) -Blood cultures 1/4 bottles positive for staph aureus likely contaminant; repeat blood cultures pending-negative so far -Patient had significantly elevated troponin on admission but after 2 hrs trended down and Echo showed LV is hyperdynamic with EF of >65% with small pericardial effusion. -Right lower extremity DVT on Doppler- S/P 1 dose of Eliquis 10 mg -later transitioned to Lovenox 55 mg Q12HR, pelvis for 1 day yesterday for paracentesis today -Moderate right pleural effusion on CT and bedside ultrasound-looks uncomplica alexei with no loculations-parapneumonic vs malignant; - s/p thoracentesis 05/11/2021-drained 1500 cc hemorrhagic fluid; exudative WBC 5400 pH 8.0 40% lymphocytes and 60% neutrophils -Cytology and cultures pending -If cytology is negative-we will plan for left axillary lymph node biopsy-and if it is negative for malignancy-he needs EBUS to obtain samples from mediastinal and hilar lymph nodes -LUCRECIA Improved with IV fluids and creatinine down to 1 -Currently on flomax 0.4 mg for BPH; -As patient is elderly male living alone-social economist evaluation to arrange placement at [facility] -He is interested in pursuing diagnosis -Currently CODE STATUS: DNR/DNI-allow natural -His brother will be his next of kin to make decision in case if patient cannot Medical condition and plan of care explained to patient in detail. He verbalized understanding and agreed with the plan Recommendations conveyed to hospitalist, RN, taking care of the patient. Attestations Medical Necessity Statement*: Requires further hospitalization for management of of sepsis, possible work-up of malignancy , DVT, resolving LUCRECIA Time Spent in Patient Care: Greater than 35 minutes (>than 50% of time spent in counselling and/or direct pt care on unit) . 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 [employer] Patient Type Established History Comprehensive Exam Comprehensive Medical Decision Making Moderate Complexity Diagnoses Sepsis with acute hypoxic respiratory failure A41.9; R65.20; J96.01 Sepsis type: sepsis due to unspecified organism Severe sepsis shock status: without septic shock Elevated troponin R77.8 Pneumonia J18.9 AMS (altered mental status) R41.82 UTI (urinary tract infection) N39.0 LUCRECIA (acute kidney injury) N17.9 Lymphadenopathy, axillary R59.0 Lymphadenopathy, mediastinal R59.0 DVT of lower extremity (deep venous thrombosis) I82.431 Affected thrombotic vein of extremity: popliteal Chronicity: acute Laterality: right Time Spent (min) 45
[2021-05-11] MEDS: budesonide 0.5 mg/2 mL Neb INHALATION (21:57)
[2021-05-12] VITALS (14 sets, daily range): BP systolic 96–123; BP diastolic 49–69; PULSE 90–122; RESP 18–28; TEMP 36.6–37.1; O2SAT 88–98
[2021-05-12] MEDS: famotidine 20 mg/2 mL INJ IVP ×2 (03:41→15:21)
[2021-05-12] MEDS: enoxaparin 60 mg/0.6 mL Syringe 55 MG SUBCUT ×2 (03:41→15:20)
[2021-05-12 04:59] LABS: Basophils # 0.1 10^3/uL (0.0-0.1); Basophils % 0.5 %; Eosinophils # 0.5 10^3/uL (0.0-0.8); Eosinophils % 3.9 %; Hematocrit 31.3 % (42.0-52.0); Hemoglobin 9.7 g/dL (11.7-16.6); Lymphocytes # 0.9 10^3/uL (0.8-4.8); Lymphocytes % 7.4 %; Mean Corpuscular Hemoglobin 29.4 pg (28.0-34.0); Mean Corpuscular Volume 94.8 fL (80-94); Mean Platelet Volume 11.8 fL (7.4-10.4); Monocytes # 1.1 10^3/uL (0.2-0.9); Monocytes % 9.5 %; Neutrophils # 8.94 10^3/uL (1.8-7.7); Neutrophils % 77.2 %; Nucleated Red Blood Cells % 0 %; Platelet Count 203 10^3/cmm (130-400); Red Cell Distribution Width 14.5 % (12.1-15.1); White Blood Count 11.6 10^3/uL (4.0-10.0)
[2021-05-12 05:20] LABS: Alanine Aminotransferase 43 U/L (0-41); Albumin Level 2.1 g/dL (3.5-5.2); Alkaline Phosphatase 87 IU/L (40-130); Anion Gap 12.4 (5-19); Aspartate Amino Transferase 73 U/L (0-40); Blood Urea Nitrogen 20 mg/dL (8-23); Calcium 7.4 mg/dL (8.5-10.5); Carbon Dioxide 21 mmol/L (22-29); Chloride 105 mmol/L (98-107); Globulin 3.8 g/dL (1.3-4.6); Glucose 121 mg/dL (65-115); Osmolality Calculated 284 mOsm/kg (285-295); Potassium 3.4 mmol/L (3.5-5.1); Sodium 135 mmol/L (136-145); Total Bilirubin 0.5 mg/dL (0.15-1.2); Total Protein 5.9 g/dL (6.6-8.7)
[2021-05-12] MEDS: ferrous gluconate 324 mg Tablet PO ×2 (08:09→18:14)
[2021-05-12] MEDS: metoprolol tartrate 50 mg Tablet PO ×2 (08:09→21:43)
[2021-05-12] MEDS: atorvastatin 40 mg Tablet 20 MG PO (08:09)
[2021-05-12] MEDS: tamsulosin 0.4 mg Capsule PO (08:09)
[2021-05-12] MEDS: aspirin 81 mg EC Tablet PO (08:09)
--- NOTE | 2021-05-12 13:20 | XRR_ITS ---
PROCEDURE INFORMATION: Exam: XR Chest Exam date and time: 05/12/2021 1:20 PM Age: 80 years old Clinical indication: Cough; Additional info: Hypoxia TECHNIQUE: Imaging protocol: XR of the chest. Views: 1 view. COMPARISON: 1. CR XR chest 1V portable [id number] 05/11/2021 11:[address] angio chest PE protcl [id number] 05/08/2021 11:24:34 AM FINDINGS: Lungs: Increasing interstitial and alveolar opacities in the right lung suspicious for worsening pneumonia. Pleural spaces: No pleural effusion. No pneumothorax. Heart/Mediastinum: The cardiac silhouette is unremarkable. Fullness in the right hilum is stable, this may correspond to enlarged right hilar lymph nodes as noted on the prior CT angiogram of the chest. Bones/joints: Unremarkable for age. XR/XR chest 1V portable [id number] IMPRESSION: 1. Increasing interstitial and alveolar opacities in the right lung suspicious for worsening pneumonia. Recommend followup chest x-ray to ensure resolution. 2. Fullness in the right hilum is stable, this may correspond to enlarged right hilar lymph nodes as noted on the prior CT angiogram of the chest.
[2021-05-12] MEDS: ipratropium-albuterol 3 mL Neb INHALATION ×2 (15:53→23:02)
--- NOTE | 2021-05-12 18:45 | P.PN_ITS ---
Subjective Subjective: Interval history: He overall states he is doing okay, but he has been noted to be slightly confused today, perhaps on and off, about certain things. He does remember the year is 2020. He does remember he is in [place], although it takes him a while to come up with the name of the town. She figured she is in the hospital, but states does not remember checking in. He does not remember findings of possible malignancy, possible pneumonia. Does not remember having thoracentesis yesterday. Vitals/I&O/Wt Last Vital Signs Temp 98.2 F 05/12/21 16:00 Pulse 114 H 05/12/21 16:00 Resp 21 H 05/12/21 16:00 BP 113/68 05/12/21 16:00 Pulse Ox 97 05/12/21 16:00 05/12/21 05/12/21 05/12/21 06:59 14:59 22:59 Intake Total 60 / 1951.667 480 / 480 Output Total 300 / 1500 525 / 525 Balance -240 / 451.667 480 / 480 -525 / -45 Weight last 48 hrs Weight 63.503 kg Weight 55.338 kg Physical Exam Const: COMMON NORMALS: no acute distress GENERAL APPEARANCE: frail appearing ORIENTATION/CONSCIOUSNESS: Yes confused HENMT: COMMON NORMALS: oropharynx normal Neck/C-Spine: COMMON NORMALS: no JVD Resp: COMMON NORMALS: normal respiratory effort AUSCULTATION: crackles Laterality: right and diminished lung sounds on the right Cardio: COMMON NORMALS: no JVD, regular rhythm, S1 normal heart sound present, S2 normal heart sound present and No murmurs present (Cardio) RHYTHM: regular rhythm HEART SOUNDS: S1 normal heart sound present and S2 normal heart sound present GI: COMMON NORMALS: Normal to inspection, nondistended, normoactive bowel sounds present, Soft to palpation and non-tender PALPATION: Yes Soft to palpation Extremity: COMMON NORMALS: no joint enlargement and no pedal edema Neuro: COMMON NORMALS: moves all extremities Skin: COMMON NORMALS: no rashes or lesions noted GENERAL SKIN EXAM: no rashes or lesions noted Urinary Catheter Management^: Dela Cruz: Cath Placed During This Visit: yes, but has since been removed by the nurse Reason for Continuing Indwelling Catheter: Acute Urinary Retention or Obstruction Urinary Catheter Date of Insertion: 05/10/21 Urinary Catheter Time of Insertion: 00:05 Date Urinary Catheter Removed: 05/09/21 Time Urinary Catheter Discontinued: 15:00 Data : 05/12/21 04:30 05/12/21 04:30 Micro: Microbiology 05/11/21 10:55 Gram Stain - Final Pleural Fluid Anaerobic Culture - Final Body Fluid Culture - Preliminary 05/06/21 12:28 Blood Culture - Final Blood Staphylococcus aureus A&P Assessment and plan (1) Hypoxia: Today with slight worsening of hypoxia, increased interstitial nodular opacities noted on repeat chest x-ray. Suspicion of worsening pneumonia. Pathology is positive for malignancy. Appears he is having superimposed pneumonia as well. With acute encephalopathy with some confusion noted. Will cover with antibiotics for pneumonia. Requesting cultures. Status: Acute (2) Pneumonia: Burn antibiotic coverage with cefepime, vancomycin. Continue oxygen support. Cultures requested. Status: Acute (3) Sepsis: As above. Status: Acute (4) Metabolic encephalopathy: Worsened again today. Unclear baseline. Not formally diagnosed with dementia. Continue to reorient. Treatment as above. Supportive care. After discharge continue mobilization, rehabilitation at SNF. Status: Acute (5) AMS (altered mental status): Improved. Resolving, as above. Status: Acute (6) DVT of lower extremity (deep venous thrombosis): Resume anticoagulation after thoracentesis. No PE on CTA. Monitor for hemoglobin drop given some blood in the pleural effusion. Status: Acute Qualifiers: Affected thrombotic vein of extremity: popliteal Chronicity: acute Laterality: right Qualified Code(s): I82.431 - Acute embolism and thrombosis of right popliteal vein (7) Pleural effusion: Malignancy on centrifuged pathology. Will need additional follow-up. With acute encephalopathy, consideration may be given to additional work-up for possible brain metastatic disease. Status: Acute (8) UTI (urinary tract infection): Completed 5-day course of ceftriaxone, although urine culture unrevealing. Status: Acute (9) LUCRECIA (acute kidney injury): Resolved Status: Acute (10) Acute urinary retention: Dela Cruz catheter removed 05/10. Watch out for recurrence of retention. Flomax Status: Acute (11) Elevated troponin: Status: Acute (12) Elevated d-dimer: Secondary to lower extremity DVT. Continue to coagulation once thoracentesis completed. Status: Acute (13) Hyperlipidemia: Status: Acute (14) Hypertension: BP is variable, but mostly on the soft side. Status: Acute Additional A&P Information 74-year gentleman with no significant past medical history other than hy pertension hyperlipidemia presented to the ER today via EMS in confused state found to have a creatinine of 3 and acute urinary retention. Blood culture/urine 1 out of 4 bottles positive for staph aureus. Most likely contaminant. Repeat blood cultures have remained negative. Urine culture preliminary have been negative. Urine legionella, bacterial antigen negative. MRSA positive. COVID-19, flu swab negative. Remove isolation precaution. Procalcitonin elevated most likely secondary possible malignancy. Possible malignancy: Thoracentesis today. Pending additional cytology studies. QuantiFERON, peripheral smear, flow cytometry. PSA negative. Metabolic high anion gap acidosis: Resolved. Elevated troponin: Suspected secondary to demand ischemia with hypoxia, acute kidney injury. Chest pain-free. Discharge planning: Will need support, likely SNF. Continue DC planning. Attestations Medical Necessity Statement*: Continue admission for assessment management of worsening pneumonia, hypoxia, worsening encephalopathy, in the setting of new diagnosis of lung cancer. 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
--- NOTE | 2021-05-12 19:24 | P.PN_ITS ---
Subjective Subjective: Interval history: - patient seen at bedside today - O2 requirement increased to 5L [place] - answered questions appropriately when i asked and appeared oriented but he was confused today morning as per Dr. Reeves - Pleural fluid cytology preliminary reported positive for malignancy and sent for further studies - Labs and imaging reviewed Medications: Reviewed: Yes Vitals/I&O/Wt Last Vital Signs Temp 98.2 F 05/12/21 16:00 Pulse 114 H 05/12/21 16:00 Resp 21 H 05/12/21 16:00 BP 113/68 05/12/21 16:00 Pulse Ox 97 05/12/21 16:00 05/12/21 05/12/21 05/12/21 06:59 14:59 22:59 Intake Total 60 / 1951.667 480 / 480 Output Total 300 / 1500 525 / 525 Balance -240 / 451.667 480 / 480 -525 / -45 Weight last 48 hrs Weight 140 lb Weight 122 lb Physical Exam Narrative: EXAM NARRATIVE: General: alert, NAD HEENT: conj clear, EOMI, PERRL, mmm, Neck: supple, no meningismus Heme: no cervical LAP Pulmonary: improved breath sounds on right lower lung Cardiovascular: rrr, nl s1s2, no mrg Abdomen: soft, nt, nd, no r/g, bs+ Extremities: pulses +, no edema, no c/c : no CVA tenderness Skin: intact, no rash MSK: no back or neck pain Neurologic: grossly intact Urinary Catheter Management^: Dela Cruz: Cath Placed During This Visit: yes, but has since been removed by the nurse Reason for Continuing Indwelling Catheter: Acute Urinary Retention or Obstruction Urinary Catheter Date of Insertion: 05/10/21 Urinary Catheter Time of Insertion: 00:05 Date Urinary Catheter Removed: 05/09/21 Time Urinary Catheter Discontinued: 15:00 Data : 05/12/21 04:30 05/12/21 04:30 Other Labs: Laboratory Results WBC 11.6 10^3/uL (4.0-10.0) H 05/12/21 04:30 RBC 3.30 10^6/uL (4.1-5.3) L 05/12/21 04:30 Hgb 9.7 g/dL (11.7-16.6) L 05/12/21 04:30 Hct 31.3 % (42.0-52.0) L 05/12/21 04:30 MCV 94.8 fL (80-94) H 05/12/21 04:30 MCH 29.4 pg (28.0-34.0) 05/12/21 04:30 MCHC 31.0 g/dL (30.0-36.0) 05/12/21 04:30 RDW 14.5 % (12.1-15.1) 05/12/21 04:30 Plt Count 203 10^3/cmm (130-400) 05/12/21 04:30 MPV 11.8 fL (7.4-10.4) H 05/12/21 04:30 Neut % (Auto) 77.2 % 05/12/21 04:30 Lymph % (Auto) 7.4 % 05/12/21 04:30 [place] % (Auto) 9.5 % 05/12/21 04:30 Eos % (Auto) 3.9 % 05/12/21 04:30 Baso % (Auto) 0.5 % 05/12/21 04:30 Neut # (Auto) 8.94 10^3/uL (1.8-7.7) H 05/12/21 04:30 Lymph # (Auto) 0.9 10^3/uL (0.8-4.8) 05/12/21 04:30 [place] # (Auto) 1.1 10^3/uL (0.2-0.9) H 05/12/21 04:30 Eos # (Auto) 0.5 10^3/uL (0.0-0.8) 05/12/21 04:30 Baso # (Auto) 0.1 10^3/uL (0.0-0.1) 05/12/21 04:30 Nucleated RBC % (auto) 0 % 05/12/21 04:30 Nucleated RBCs # 0.0 /100WBC 05/12/21 04:30 Fibrinogen 163 mg/dL (174-498) L 05/06/21 14:11 D-Dimer >= 20.00 ug/mIFEU (0-0.59) H 05/06/21 14:11 Specimen Type Arterial 05/06/21 10:42 Sample Site Brachial, right 05/06/21 10:42 ABG pH 7.39 (7.35-7.45) 05/06/21 10:42 ABG pCO2 27.9 mmHg (35-45) L 05/06/21 10:42 ABG pO2 59.6 mmHg (80.0-100.0) L 05/06/21 10:42 ABG HCO3 17.0 mmol/L (22-26) L 05/06/21 10:42 ABG O2 Saturation 90.1 05/06/21 10:42 ABG Base Excess -6.5 mmol/L (-2.0-2.0) L 05/06/21 10:42 Agustín Test N/a 05/06/21 10:42 A-a O2 Gradient 7.2 mmHg (5-10) 05/06/21 10:42 Hematocrit 38.8 % (42-52) L 05/06/21 10:42 Hgb O2 Saturation 88.6 % (95-100) L 05/06/21 10:42 Carboxyhemoglobin 1.0 %THgb (0.4-20.1) 05/06/21 10:42 Methemoglobin 0.6 % (0.4-1.5) 05/06/21 10:42 Total Hemoglobin 12.6 g/dL (14-18) L 05/06/21 10:42 Sodium 139.0 mmol/L (131-143) 05/06/21 10:42 Potassium 3.9 mmol/L (3.5-5.0) 05/06/21 10:42 Glucose 120.0 mg/dL (70-115) H 05/06/21 10:42 Ionized Calcium 1.1 mmol/L (1.1-1.4) 05/06/21 10:42 O2 Delivery Device Room air 05/06/21 10:42 FiO2 21.0 % 05/06/21 10:42 [employer] ID Amh 05/06/21 10:42 Sodium 135 mmol/L (136-145) L 05/12/21 04:30 Potassium 3.4 mmol/L (3.5-5.1) L 05/12/21 04:30 Chloride 105 mmol/L (98-107) 05/12/21 04:30 Carbon Dioxide 21 mmol/L (22-29) L 05/12/21 04:30 Anion Gap 12.4 (5-19) 05/12/21 04:30 BUN 20 mg/dL (8-23) 05/12/21 04:30 Creatinine 1.0 mg/dL (0.7-1.2) 05/12/21 04:30 GFR Calculation Not Reportable 05/12/21 04:30 Glucose 121 mg/dL (65-115) H 05/12/21 04:30 Estimat Average Glucose 94 05/07/21 05:20 Hemoglobin A1c 4.9 % (4.0-6.0) 05/07/21 05:20 Calculated Osmolality 284 mOsm/kg (285-295) L 05/12/21 04:30 Lactic Acid 2.3 mmol/L (0.5-2.2) H 05/06/21 10:26 Lactic Acid (Sepsis) 1.4 mmol/L (0.5-2.2) 05/06/21 14:11 Calcium 7.4 mg/dL (8.5-10.5) L 05/12/21 04:30 Magnesium 2.8 mg/dL (1.7-2.3) H 05/06/21 14:11 Iron 23 ug/dL (59-158) L 05/06/21 14:11 TIBC 167 mcg/dl 05/06/21 14:11 % Saturation 13.7 % (20-50) L 05/06/21 14:11 Unsat Iron Binding 144 ug/dL (112-347) 05/06/21 14:11 Ferritin 2500 ng/mL (30-400) H 05/06/21 14:11 Total Bilirubin 0.5 mg/dL (0.15-1.2) 05/12/21 04:30 AST 73 U/L (0-40) H 05/12/21 04:30 ALT 43 U/L (0-41) H 05/12/21 04:30 Alkaline Phosphatase 87 IU/L (40-130) 05/12/21 04:30 Lactate Dehydrogenase 282 U/L (135-225) H 05/06/21 14:11 Creatine Kinase 65 U/L (39-308) 05/06/21 14:11 Troponin T Baseline 677 ng/L (0-15) H* 05/06/21 10:26 Troponin T 120 Minute 633.6 ng/L (0-15) H 05/06/21 12:28 Delta Troponin T -43.4 ABS# (0-10) L 05/06/21 12:28 Troponin T Hi Sens 6Hr 476.5 ng/L (0-15) H 05/06/21 16:30 Troponin T Hi Sens 6Hr Delta -200.5 ng/L (0-12) L 05/06/21 16:30 C-Reactive Protein 74.5 mg/L (0.0-4.9) H 05/06/21 14:11 NT-Pro-B Natriuret Pep 774 pg/mL (0-450) H 05/06/21 14:11 Total Protein 5.9 g/dL (6.6-8.7) L 05/12/21 04:30 Albumin 2.1 g/dL (3.5-5.2) L 05/12/21 04:30 Globulin 3.8 g/dL (1.3-4.6) 05/12/21 04:30 Triglycerides 125 mg/dL (0-150) 05/07/21 05:20 Cholesterol 129 mg/dL (0-200) 05/07/21 05:20 LDL Cholesterol, Calc 76 mg/dL (50-129) 05/07/21 05:20 Total VLDL Cholesterol 25 mg/dL (0-30) 05/07/21 05:20 HDL Cholesterol 28 mg/dL (60-100) L 05/07/21 05:20 Cholesterol/HDL Ratio 4.61 mg/dL (1.0-5.00) 05/07/21 05:20 Lipase 96 U/L (13-60) H 05/06/21 10:26 Prostate Specific Ag 0.882 ng/mL (0-4) 05/06/21 14:11 Procalcitonin 67.43 ng/mL (0-0.5) H 05/08/21 06:46 TSH 4.02 uIU/mL (0.27-4.20) 05/06/21 14:11 Urine Color Yellow (Yellow) 05/06/21 12:30 Urine Appearance Clear (CLEAR) 05/06/21 12:30 Urine pH 5 (5-7) 05/06/21 12:30 Ur Specific [place] 1.020 (1.005-1.030) 05/06/21 12:30 Urine Protein Trace (Negative) 05/06/21 12:30 Urine Glucose (UA) Norm (Normal) 05/06/21 12:30 Urine Ketones 1+ (Negative) H 05/06/21 12:30 Urine Blood 3+ (Negative) H 05/06/21 12:30 Urine Nitrate Positive (Negative) H 05/06/21 12:30 Urine Bilirubin Neg (Negative) 05/06/21 12:30 Urine Urobilinogen Norm mg/dL (Negative) 05/06/21 12:30 Ur Leukocyte Esterase 1+ (Negative) H 05/06/21 12:30 Urine RBC 5-10 /hpf (0-2) H 05/06/21 12:30 Urine WBC 0-4 /hpf (0-5) H 05/06/21 12:30 Ur Squamous Epith Cells 0-4 /hpf (0-5) H 05/06/21 12:30 Amorphous Sediment Not Reportable 05/06/21 12:30 Urine Bacteria 3+ /hpf (NONE) H 05/06/21 12:30 Ur Random Sodium 47 mmol/L 05/06/21 12:30 Ur Random Potassium 37 mmol/L 05/06/21 12:30 Ur Random Chloride 19 mmol/L 05/06/21 12:30 Urine Creatinine 179 mg/dL (39-259) 05/06/21 12:30 Fluid Color Red 05/11/21 10:55 Fluid Appearance Cloudy 05/11/21 10:55 Fluid Specific Grav 1.010 05/11/21 10:55 Fluid pH 8.0 05/11/21 10:55 Fluid WBC 5409 /uL 05/11/21 10:55 Fluid RBC 38.000 10^3/uL 05/11/21 10:55 Fld Polynuclear WBCs # 3.291 05/11/21 10:55 Fld Polynuclear WBCs % 60.800 % 05/11/21 10:55 Fl Mononucl WBCs #(Auto) 2.118 05/11/21 10:55 Fl Mononuclear % Auto 39.200 % 05/11/21 10:55 Fluid Glucose 104.0 mg/dL 05/11/21 10:55 Fluid Albumin 1.6 g/dL 05/11/21 10:55 Fluid LDH 501 U/L 05/11/21 10:55 Fluid Amylase 40 U/L 05/11/21 10:55 Fluid Alk Phosphatase 304 IU/L 05/11/21 10:55 Fluid Cholesterol 46 mg/dL (0-200) 05/11/21 10:55 Fluid Triglycerides 18 mg/dL (0-150) 05/11/21 10:55 Fluid Uric Acid 6 mg/dL 05/11/21 10:55 Pleural Total Protein 4.0 g/dL 05/11/21 10:55 Vancomycin Trough 9.2 ug/mL (10-15) L 05/09/21 15:34 Urine Opiates Screen Negative ng/mL (Negative) 05/06/21 12:30 Ur Barbiturates Screen Negative ng/mL (Negative) 05/06/21 12:30 Ur Phencyclidine Scrn Negative ng/mL (Negative) 05/06/21 12:30 Ur Amphetamines Screen Negative ng/mL (Negative) 05/06/21 12:30 U Benzodiazepines Scrn Negative ng/mL (Negative) 05/06/21 12:30 Urine Cocaine Screen Negative ng/mL (Negative) 05/06/21 12:30 U Marijuana (THC) Screen Negative ng/mL (Negative) 05/06/21 12:30 Serum Ketones Negative (Negative) 05/06/21 10:26 Leuk/Lym Spec Type Cancelled 05/11/21 06:46 Leuk/Lym Clinical Info Cancelled 05/11/21 06:46 Leuk/Lymph Viability Cancelled 05/11/21 06:46 Leuk/Lym Sample Descrip Cancelled 05/11/21 06:46 Leuk/Lym # of Markers Cancelled 05/11/21 06:46 Leuk/Lym Markers Cancelled 05/11/21 06:46 Leuk/Lym Gating Strategy Cancelled 05/11/21 06:46 Leuk/Lym Interpretation Cancelled 05/11/21 06:46 Nasal/Oral COVID-19 PCR Not detected 05/06/21 18:00 Influenza Type A Ag Negative (Negative) 05/06/21 18:11 Influenza Type B Ag Negative (Negative) 05/06/21 18:11 SARS-CoV-2 Ag (Rapid) Negative (Negative) 05/06/21 18:00 TB (QFT) Gold In Tube Negative (NEGATIVE) 05/08/21 16:23 TB Test (QFT) Nil 0.01 IU/mL 05/08/21 16:23 TB Test (QFT) Mitogen 9.42 IU/mL 05/08/21 16:23 TB Test Mitogen - Nil 0.00 IU/mL 05/08/21 16:23 TB Test TB - Nil 0.00 IU/mL 05/08/21 16:23 Impressions Abdomen/Pelvis CT 05/06/21 11:25 IMPRESSION: 1. Markedly distended urinary bladder with contrast. Mild enlargement of the prostate measuring 4 cm. 2. Noncontrast kidneys are normal in appearance. No retained contrast in the kidneys or ureters. No obstructing renal or ureteral calculi. 3. Stable 2.7 cm left renal cyst. 4. Stable infrarenal abdominal aortic aneurysm measuring 3.4 x 3.6 CM. 5. Small right pleural effusion with patchy infiltrates in right lower lobe u nchanged from previous. Recommend Correlation for pneumonia. Head CT 05/06/21 11:25 IMPRESSION: 1. No evidence of intracranial hemorrhage or mass effect. 2. Moderate small vessel changes. Moderate parenchymal volume loss. 3. Chronic infarct left lateral basal ganglia. 4. No acute intracranial findings. Chest CTA 05/08/21 08:46 IMPRESSION: 1. Since the prior study development of anasarca and fluid overload. 2. Development of a moderate-sized RIGHT pleural effusion with compressive atelectasis of the RIGHT lower lobe and partial atelectasis RIGHT upper and RIGHT middle lobes. 3. LEFT axillary, mediastinal and hilar lymphadenopathy. Increased soft tissue at the RIGHT hilum. Adenopathy or mass not excluded. Recommend bronchoscopy for further evaluation. 4. Diffuse soft tissue edema and interstitial thickening throughout the RIGHT lung. 5. Indeterminate lymph nodes at the celiac axis and SMA. 6. No pulmonary embolism. 7. Small pericardial effusion. Chest X-Ray 05/12/21 13:20 IMPRESSION: 1. Increasing interstitial and alveolar opacities in the right lung suspicious for worsening pneumonia. Recommend followup chest x-ray to ensure resolution. 2. Fullness in the right hilum is stable, this may correspond to enlarged right hilar lymph nodes as noted on the prior CT angiogram of the chest. Micro: Microbiology 05/11/21 10:55 Gram Stain - Final Pleural Fluid Anaerobic Culture - Final Body Fluid Culture - Preliminary A&P Assessment and plan (1) Sepsis with acute hypoxic respiratory failure: Status: Acute Qualifiers: Sepsis type: sepsis due to unspecified organism Severe sepsis shock status: without septic shock Qualified Code(s): A41.9 - Sepsis, unspecified organism; R65.20 - Severe sepsis without septic shock; J96.01 - Acute respiratory failure with hypoxia (2) Elevated troponin: Status: Acute (3) Pneumonia: Status: Acute (4) AMS (altered mental status): Status: Acute (5) UTI (urinary tract infection): Status: Acute (6) LUCRECIA (acute kidney injury): Status: Acute (7) Lymphadenopathy, axillary: Status: Acute (8) Lymphadenopathy, mediastinal: Status: Acute (9) DVT of lower extremity (deep venous thrombosis): Status: Acute Qualifiers: Affected thrombotic vein of extremity: popliteal Chronicity: acute Laterality: right Qualified Code(s): I82.431 - Acute embolism and thrombosis of right popliteal vein Overall: 80-year-old male admitted with altered mental status, nausea, vomiting, diarrhea found to require 2 L oxygen and UA revealing UTI, MRSA nares positive, lower extremity Doppler positive for acute DVT involving right popliteal and proximal posterior tibial vein causing total occlusion, CT chest, showing moderate pleural effusion with compressive atelectasis of the RIGHT lower lobe and partial atelectasis RIGHT upper and RIGHT middle lobes, LEFT axillary, mediastinal and hilar lymphadenopathy. Increased soft tissue at the RIGHT hilum. -Altered mental status likely secondary to sepsis UTI/pneumonia- and cannot rule out metastases if pleural cytology confirmed for malignancy -today requiring 5L nasal cannula-saturating 95% -MRSA nares positive-on contact isolation-continue vancomycin -UA showed UTI, cultures negative, currently on ceftriaxone- changed to cefepime -Urine bacterial antigens, Legionella antigen negative; procalcitonin significantly high suggestive of bacterial infection versus malignancy vs LUCRECIA (creatinine 3) -Blood cultures 1/4 bottles positive for staph aureus likely contaminant; repeat blood cultures pending-negative so far -Patient had significantly elevated troponin on admission but after 2 hrs trended down and Echo showed LV is hyperdynamic with EF of >65% with small pericardial effusion. -Right lower extremity DVT on Doppler- S/P 1 dose of Eliquis 10 mg -later transitioned to Lovenox 55 mg Q12HR, pelvis for 1 day yesterday for paracentesis today -Moderate right pleural effusion on CT and bedside ultrasound-looks uncomplicated with no loculations-parapneumonic vs malignant; - s/p thoracentesis 05/11/2021-drained 1500 cc hemorrhagic fluid; exudative WBC 5400 pH 8.0 40% lymphocytes and 60% neutrophils - Pleural fluid cytology positive for malignancy and IHC stains pending ; Suggestive of Stage 4 malignancy - Also pleural fluid cultures pending - if mentation worsens MRI brain or CT head with contrast -LUCRECIA Improved with IV fluids and creatinine down to 1 -Currently on flomax 0.4 mg for BPH; -As patient is elderly male living alone-social media executive evaluation to arrange placement at [facility] -When informed about preliminary malignant cells in cytology and asked about further goals of care as far as cancer management - he would want to decidce after final diagnosis -Currently CODE STATUS: DNR/DNI-allow natural -His brother will be his next of kin to make decision in case if patient cannot - on lovenox for right leg DVT - Monitor H & H Medical condition and plan of care explained to patient in detail. He verbalized understanding and agreed with the plan Recommendations conveyed to hospitalist, RN, taking care of the patient. Attestations Medical Necessity Statement*: Requires further hospitalization for management of of sepsis, possible work-up of malignancy , DVT, resolving LUCRECIA Coding Level of Care Code Established Pt Acute Nutritional Services Director for [facility] Patient Type Established History Comprehensive Exam Comprehensive Medical Decision Making Moderate Complexity Diagnoses Sepsis with acute hypoxic respiratory failure A41.9; R65.20; J96.01 Sepsis type: sepsis due to unspecified organism Severe sepsis shock status: without septic shock Elevated troponin R77.8 Pneumonia J18.9 AMS (altered mental status) R41.82 UTI (urinary tract infection) N39.0 LUCRECIA (acute kidney injury) N17.9 Lymphadenopathy, axillary R59.0 Lymphadenopathy, mediastinal R59.0 DVT of lower extremity (deep venous thrombosis) I82.431 Affected thrombotic vein of extremity: popliteal Chronicity: acute Laterality: right Time Spent (min) 45
[2021-05-12] MEDS: cefepime 1,000 MG in sodium chloride 0.9% (plus) 100 ML 200 MG IV (20:15)
--- NOTE | 2021-05-12 20:18 | PC.NURSE ---
Received bedside report from ROBBY Sarabia. Patient resting in bed. Informed this RN he requires his meds in applesauce. Requesting to change to chocolate pudding tonight. Patient has lawrence catheter in place which is draining wilfredo colored urine. Patient denies other needs or pain. No distress observed.
[2021-05-12] MEDS: vancomycin 1,250 MG/250 ML PIGGYBACK 250 MG IV (21:43)
[2021-05-12] MEDS: budesonide 0.5 mg/2 mL Neb INHALATION (23:02)
[2021-05-13] VITALS (12 sets, daily range): BP systolic 91–118; BP diastolic 51–68; PULSE 93–118; RESP 17–28; TEMP 36.6–36.8; O2SAT 83–94
[2021-05-13] MEDS: famotidine 20 mg/2 mL INJ IVP ×2 (03:15→14:41)
[2021-05-13] MEDS: enoxaparin 60 mg/0.6 mL Syringe 55 MG SUBCUT ×2 (03:15→14:41)
--- NOTE | 2021-05-13 03:20 | PC.NURSE ---
Patient awake. Appears some confused as to his location. Patient is currently directable and pleasant.
[2021-05-13 03:41] LABS: Basophils # 0.1 10^3/uL (0.0-0.1); Basophils % 0.5 %; Eosinophils # 0.4 10^3/uL (0.0-0.8); Hematocrit 30.4 % (42.0-52.0); Hemoglobin 9.7 g/dL (11.7-16.6); Lymphocytes # 0.8 10^3/uL (0.8-4.8); Lymphocytes % 6.9 %; Mean Corpuscular HGB Conc 31.9 g/dL (30.0-36.0); Mean Corpuscular Hemoglobin 29.7 pg (28.0-34.0); Mean Platelet Volume 11.3 fL (7.4-10.4); Monocytes # 1.1 10^3/uL (0.2-0.9); Monocytes % 8.9 %; Neutrophils # 9.55 10^3/uL (1.8-7.7); Neutrophils % 79.5 %; Nucleated Red Blood Cells % 0 %; Platelet Count 218 10^3/cmm (130-400); Red Blood Count 3.27 10^6/uL (4.1-5.3); Red Cell Distribution Width 14.4 % (12.1-15.1)
[2021-05-13 04:22] LABS: Alanine Aminotransferase 62 U/L (0-41); Alkaline Phosphatase 101 IU/L (40-130); Anion Gap 13.4 (5-19); Aspartate Amino Transferase 111 U/L (0-40); Blood Urea Nitrogen 17 mg/dL (8-23); Calcium 7.2 mg/dL (8.5-10.5); Carbon Dioxide 19 mmol/L (22-29); Chloride 103 mmol/L (98-107); Globulin 3.8 g/dL (1.3-4.6); Glucose 113 mg/dL (65-115); Osmolality Calculated 276 mOsm/kg (285-295); Potassium 3.4 mmol/L (3.5-5.1); Sodium 132 mmol/L (136-145); Total Bilirubin 0.5 mg/dL (0.15-1.2); Total Protein 5.8 g/dL (6.6-8.7)
[2021-05-13] MEDS: ipratropium-albuterol 3 mL Neb INHALATION ×2 (08:27→21:21)
[2021-05-13] MEDS: budesonide 0.5 mg/2 mL Neb INHALATION ×2 (08:27→21:21)
[2021-05-13] MEDS: tamsulosin 0.4 mg Capsule PO (09:18)
[2021-05-13] MEDS: atorvastatin 40 mg Tablet 20 MG PO (09:18)
[2021-05-13] MEDS: metoprolol tartrate 50 mg Tablet PO (09:18)
[2021-05-13] MEDS: aspirin 81 mg EC Tablet PO (09:18)
[2021-05-13] MEDS: ferrous gluconate 324 mg Tablet PO ×2 (09:18→17:25)
[2021-05-13] MEDS: cefepime 1,000 MG in sodium chloride 0.9% (plus) 100 ML 200 MG IV ×2 (09:19→20:05)
--- NOTE | 2021-05-13 09:54 | PC.SOCIAL ---
IMM Update Pg. 2 of IMM updated and reviewed with patient, verbalized understanding. Initialed, dated, timed, and placed in chart. Copy provided to patient.
[2021-05-13 11:46] LABS: Miscellaneous Test See Scanned Lab Rpt
--- NOTE | 2021-05-13 14:10 | PC.NURSE ---
Received a call from [place] to check on status of patient on behalf of Nba Jansen This nurse educated caller about [employer] compliance caller understood
--- NOTE | 2021-05-13 19:00 | CTR_ITS ---
PROCEDURE INFORMATION: Exam: CT Head Without And With Contrast Exam date and time: 05/13/2021 7:00 PM Age: 80 years old Clinical indication: Altered mental status/memory loss; Additional info: Lung malignancy, AMS, assess for mets TECHNIQUE: Imaging protocol: Computed tomography of the head without and with intravenous contrast. Radiation optimization: All CT scans at this facility use at least one of these dose optimization techniques: automated exposure control; mA and/or kV adjustment per patient size (includes targeted exams where dose is matched to clinical indication); or iterative reconstruction. Contrast material: OMNI 300; Contrast volume: 95 ml; Contrast route: INTRAVENOUS (IV); COMPARISON: CT head wo con* [id number] 05/06/2021 11:38 AM RADIATION DOSE METRICS: Total DLP (mGy-cm): 1301.71 FINDINGS: Brain: No hemorrhage. Dilated perivascular space versus chronic lacunar infarct in the left basal ganglia again noted. No mass effect. No evidence of intracranial mass. Moderate diffuse cerebral atrophy. Cerebral ventricles: No ventriculomegaly. Paranasal sinuses: Visualized sinuses are unremarkable. No fluid levels. Mastoid air cells: Visualized mastoid air cells are well aerated. Bones/joints: Unremarkable. No acute fracture. Soft tissues: Unremarkable. CT/CT head wo/w con [id number] IMPRESSION: No evidence of intracranial metastatic disease. No acute intracranial abnormality. Radiation Dose CTDIVOL = (mGy): DLP = 1301.71 (mGy-cm)
--- NOTE | 2021-05-13 19:30 | PC.NURSE ---
Received bedside report from ROBBY Campoverde. Patient resting in bed watching tv. Dela Cruz catheter in place. Denies pain or needs at this time. No distress observed.
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
[2021-05-13] MEDS: iohexol 300 mg/mL 100 mL Btl IV (21:08)
[2021-05-13] MEDS: vancomycin 1,250 MG/250 ML PIGGYBACK 250 MG IV (21:29)
[2021-05-13] MEDS: metoprolol tartrate 25 mg Tablet PO (21:29)
[2021-05-13] MEDS: FUROsemide 10 mg/mL SDV 2mL 20 MG IVP (21:32)
[2021-05-14] VITALS (14 sets, daily range): BP systolic 85–101; BP diastolic 51–59; PULSE 94–127; RESP 18–23; TEMP 36.4–36.8; O2SAT 85–93
[2021-05-14] MEDS: famotidine 20 mg/2 mL INJ IVP ×2 (03:13→14:21)
[2021-05-14] MEDS: enoxaparin 60 mg/0.6 mL Syringe 55 MG SUBCUT ×2 (03:13→14:21)
--- NOTE | 2021-05-14 03:21 | PC.NURSE ---
Patient BP decreases when patient lies on his right lateral side also experiences decrease in SpO2 levels in this position. Observed patient to let left hand dangle to the right and pulls O2 sensor tight to his hand giving a false reading. When patient is repositioned and tension removed SpO2 increased to 91%. Patient is currently on 4-5L NC. Patient does complain about the oxygen drying his nose and mouth. He drinks water to help remedy this dryness. Patient also has humidity placed to oxygen source. Patient denies any pain or needs presently.
--- NOTE | 2021-05-14 03:58 | PC.NURSE ---
Patient is having periods where his oxygen is dropping into the 60s and 70s. He is still arousable. He does not appear to be in any distress. He is not moving much air if any on the right side which is the side of his mass. He has been on 5L NC. RT is currently changing him over to an oxymask. Dr Ford has been notified. RT informed this RN that patient is on 6L oxymask with current SpO2 is at 93%.
[2021-05-14 04:07] LABS: Basophils # 0.1 10^3/uL (0.0-0.1); Basophils % 0.6 %; Eosinophils # 0.2 10^3/uL (0.0-0.8); Eosinophils % 2.2 %; Hematocrit 29.8 % (42.0-52.0); Hemoglobin 9.6 g/dL (11.7-16.6); Lymphocytes # 0.7 10^3/uL (0.8-4.8); Mean Corpuscular HGB Conc 32.2 g/dL (30.0-36.0); Mean Corpuscular Volume 93.1 fL (80-94); Mean Platelet Volume 11.5 fL (7.4-10.4); Monocytes # 0.9 10^3/uL (0.2-0.9); Monocytes % 8.8 %; Neutrophils # 8.45 10^3/uL (1.8-7.7); Neutrophils % 80.3 %; Nucleated Red Blood Cells % 0 %; Platelet Count 224 10^3/cmm (130-400); Red Cell Distribution Width 14.6 % (12.1-15.1); White Blood Count 10.5 10^3/uL (4.0-10.0)
[2021-05-14 04:29] LABS: Alanine Aminotransferase 55 U/L (0-41); Alkaline Phosphatase 96 IU/L (40-130); Anion Gap 12.4 (5-19); Aspartate Amino Transferase 109 U/L (0-40); Blood Urea Nitrogen 17 mg/dL (8-23); Calcium 7.5 mg/dL (8.5-10.5); Carbon Dioxide 20 mmol/L (22-29); Chloride 102 mmol/L (98-107); Globulin 4.1 g/dL (1.3-4.6); Glucose 98 mg/dL (65-115); Osmolality Calculated 274 mOsm/kg (285-295); Potassium 3.4 mmol/L (3.5-5.1); Sodium 131 mmol/L (136-145); Total Bilirubin 0.4 mg/dL (0.15-1.2); Total Protein 6.1 g/dL (6.6-8.7)
--- NOTE | 2021-05-14 06:00 | XR_ITS ---
WS: [id number] Portable AP semiupright chest, 05/14/2021 Clinical Data: Hypoxia Comparison: Portable chest, 05/12/2021. Findings: The patchy opacity occupying the right lung has increased. There is now a right pleural eff usion with effusion migrating into the superior right pleura. Left lung remains clear. There are clip s in the left supraclavicular region. The heart is normal. There are lymph nodes in the right tracheo bronchial region unchanged. Monitor leads are on the chest wall. XR/XR chest 1V portable [id number] Impression: 1. Increasing patchy opacity in the right lung which may represent worsening pn eumonia. 2. Right pleural effusion. 3. No change in right tracheobronchial lymphadenopathy.
--- NOTE | 2021-05-14 06:02 | PC.NURSE ---
Patient is not allowing me to replace his oxymask. he is telling me to leave him alone. Current SpO2 is 83%. He is also refusing to let me place his NC. Patient does not appear to be confused this morning however may possibly be feeling depressed. Informed Dr Ford of patient's refusal and code status. Left message per patient with Nba Jansen to call the floor to discuss with family regarding patient's decision to not where his oxygen. RT Gama went to see patient to try to convince him to replace oxymask or NC at least until patient can speak with the doctor. Patient told RT, I just want to be left alone. Patient has removed telemetry monitoring as well.
[2021-05-14] MEDS: cefepime 1,000 MG in sodium chloride 0.9% (plus) 100 ML 200 MG IV ×2 (08:44→20:42)
[2021-05-14] MEDS: ferrous gluconate 324 mg Tablet PO ×2 (08:44→17:38)
[2021-05-14] MEDS: aspirin 81 mg EC Tablet PO (08:45)
[2021-05-14] MEDS: metoprolol tartrate 25 mg Tablet PO (08:45)
[2021-05-14] MEDS: tamsulosin 0.4 mg Capsule PO (08:45)
[2021-05-14] MEDS: atorvastatin 40 mg Tablet 20 MG PO (08:45)
[2021-05-14] MEDS: FUROsemide 10 mg/mL SDV 2mL 20 MG IVP (08:45)
[2021-05-14] MEDS: budesonide 0.5 mg/2 mL Neb INHALATION ×2 (08:47→19:52)
[2021-05-14] MEDS: ipratropium-albuterol 3 mL Neb INHALATION ×4 (08:47→19:52)
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
[2021-05-14] MEDS: vancomycin 1,250 MG/250 ML PIGGYBACK 250 MG IV (21:25)
[2021-05-15] VITALS (15 sets, daily range): BP systolic 82–127; BP diastolic 58–68; PULSE 102–131; RESP 20–28; TEMP 36.6–36.8; O2SAT 91–95
[2021-05-15] MEDS: enoxaparin 60 mg/0.6 mL Syringe 55 MG SUBCUT ×2 (03:38→15:46)
[2021-05-15] MEDS: famotidine 20 mg/2 mL INJ IVP ×2 (03:39→18:56)
[2021-05-15] MEDS: ipratropium-albuterol 3 mL Neb INHALATION ×4 (07:30→20:48)
[2021-05-15] MEDS: budesonide 0.5 mg/2 mL Neb INHALATION ×2 (07:30→20:48)
--- NOTE | 2021-05-15 08:09 | ECG_ITS ---
[facility] Test Date: 2021-05-15 Pat Name: Mendel Jansen Department: Room: 104 Gender: Male Outsole Skiver: : 1940 Requested By: [place] Order Number: [id number] Reading MD: Sabi White M.D. Measurements Intervals [place] Rate: 105 P: 55 VA: 154 QRS: 37 QRSD: 87 T: 15 QT: 328 QTc: 434 Interpretive Statements SINUS TACHYCARDIA NONSPECIFIC T-WAVE ABNORMALITY ABNORMAL RHYTHM ECG Compared to ECG 05/06/2021 18:11:30 T-wave abnormality now present Electronically Signed On 05-15-2021 14:59:58 CDT by Sabi White M.D. [id number]
[2021-05-15] MEDS: cefepime 1,000 MG in sodium chloride 0.9% (plus) 100 ML 200 MG IV ×2 (08:40→21:07)
[2021-05-15] MEDS: ferrous gluconate 324 mg Tablet PO ×2 (08:45→18:56)
[2021-05-15] MEDS: atorvastatin 40 mg Tablet 20 MG PO (08:45)
[2021-05-15] MEDS: aspirin 81 mg EC Tablet PO (08:45)
[2021-05-15] MEDS: metoprolol tartrate 25 mg Tablet 12.5 MG PO ×2 (08:46→21:09)
--- NOTE | 2021-05-15 09:00 | FL_ITS ---
WS: [id number] MODIFIED BARIUM SWALLOW TECHNIQUE: Modified barium swallow with speech therapy using multiple consistencies. FLUOROSCOPY TIME: minutes. CLINICAL INFORMATION: Oropharyngeal dysphagia COMPARISON: None. FINDINGS: Multiple consistencies utilized. Delayed oropharyngeal phase with decreased palatal contractility. Pe rsistent pooling in the vallecula with multiple consistencies. No evidence of eb aspiration or sig nificant penetration. FL/FL barium swallow modifd [id number] IMPRESSION: 1. Markedly delayed oropharyngeal phase with decreased palatal contractility. 2. Persistent sustained pooling in the vallecula 3. No evidence of eb aspiration or significant penetration.
[2021-05-15 11:25] LABS: Basophils # 0.1 10^3/uL (0.0-0.1); Basophils % 0.6 %; Eosinophils # 0.2 10^3/uL (0.0-0.8); Eosinophils % 1.8 %; Hematocrit 33.5 % (42.0-52.0); Hemoglobin 10.5 g/dL (11.7-16.6); Lymphocytes # 0.6 10^3/uL (0.8-4.8); Lymphocytes % 6.2 %; Mean Corpuscular HGB Conc 31.3 g/dL (30.0-36.0); Mean Corpuscular Hemoglobin 30.2 pg (28.0-34.0); Mean Corpuscular Volume 96.3 fL (80-94); Mean Platelet Volume 11.3 fL (7.4-10.4); Monocytes % 10.3 %; Neutrophils # 8.02 10^3/uL (1.8-7.7); Neutrophils % 80.1 %; Nucleated Red Blood Cells % 0 %; Platelet Count 264 10^3/cmm (130-400); Red Blood Count 3.48 10^6/uL (4.1-5.3); Red Cell Distribution Width 14.8 % (12.1-15.1)
--- NOTE | 2021-05-15 11:35 | PC.SOCIAL ---
IMM UPDATE Gave patient IMM update. Provided copy of pg 2. 05/15/21 @ 1009. Initialed, dated, timed and placed in chart.
[2021-05-15 13:29] LABS: Alanine Aminotransferase 53 U/L (0-41); Albumin Level 2.2 g/dL (3.5-5.2); Alkaline Phosphatase 95 IU/L (40-130); Aspartate Amino Transferase 118 U/L (0-40); Blood Urea Nitrogen 18 mg/dL (8-23); Calcium 7.6 mg/dL (8.5-10.5); Carbon Dioxide 18 mmol/L (22-29); Chloride 99 mmol/L (98-107); Globulin 4.3 g/dL (1.3-4.6); Glucose 112 mg/dL (65-115); Magnesium 1.9 mg/dL (1.7-2.3); Osmolality Calculated 275 mOsm/kg (285-295); Sodium 131 mmol/L (136-145); Total Bilirubin 0.4 mg/dL (0.15-1.2); Total Protein 6.5 g/dL (6.6-8.7)
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
[2021-05-15 21:08] LABS: Vancomycin Trough 10.6 ug/mL (10-15)
[2021-05-15] MEDS: vancomycin 1,250 MG/250 ML PIGGYBACK 250 MG IV (22:05)
[2021-05-16] VITALS (16 sets, daily range): BP systolic 89–128; BP diastolic 52–72; PULSE 91–113; RESP 18–33; TEMP 35.4–37.1; O2SAT 90–95
[2021-05-16] MEDS: famotidine 20 mg/2 mL INJ IVP ×2 (03:24→16:27)
[2021-05-16] MEDS: enoxaparin 60 mg/0.6 mL Syringe 55 MG SUBCUT ×2 (03:24→16:27)
--- NOTE | 2021-05-16 04:11 | PC.NURSE ---
Patient used incentive spirometer several times tonight.
[2021-05-16 05:44] LABS: Basophils # 0.1 10^3/uL (0.0-0.1); Basophils % 0.8 %; Eosinophils # 0.2 10^3/uL (0.0-0.8); Eosinophils % 2.8 %; Hematocrit 28.9 % (42.0-52.0); Hemoglobin 9.3 g/dL (11.7-16.6); Lymphocytes # 0.8 10^3/uL (0.8-4.8); Lymphocytes % 9.5 %; Mean Corpuscular HGB Conc 32.2 g/dL (30.0-36.0); Mean Corpuscular Hemoglobin 30.3 pg (28.0-34.0); Mean Corpuscular Volume 94.1 fL (80-94); Mean Platelet Volume 11.4 fL (7.4-10.4); Monocytes # 1.1 10^3/uL (0.2-0.9); Monocytes % 13.6 %; Neutrophils # 5.76 10^3/uL (1.8-7.7); Neutrophils % 72.5 %; Nucleated Red Blood Cells % 0 %; Platelet Count 259 10^3/cmm (130-400); Red Blood Count 3.07 10^6/uL (4.1-5.3); Red Cell Distribution Width 14.8 % (12.1-15.1); White Blood Count 7.9 10^3/uL (4.0-10.0)
[2021-05-16 06:28] LABS: Alanine Aminotransferase 60 U/L (0-41); Albumin Level 2.1 g/dL (3.5-5.2); Alkaline Phosphatase 86 IU/L (40-130); Aspartate Amino Transferase 128 U/L (0-40); Blood Urea Nitrogen 15 mg/dL (8-23); Calcium 7.3 mg/dL (8.5-10.5); Carbon Dioxide 20 mmol/L (22-29); Chloride 102 mmol/L (98-107); Globulin 3.8 g/dL (1.3-4.6); Glucose 111 mg/dL (65-115); Osmolality Calculated 276 mOsm/kg (285-295); Sodium 132 mmol/L (136-145); Total Bilirubin 0.4 mg/dL (0.15-1.2); Total Protein 5.9 g/dL (6.6-8.7)
[2021-05-16] MEDS: cefepime 1,000 MG in sodium chloride 0.9% (plus) 100 ML 200 MG IV ×2 (07:45→20:12)
[2021-05-16] MEDS: ferrous gluconate 324 mg Tablet PO ×2 (07:45→19:15)
--- NOTE | 2021-05-16 08:15 | PC.NURSE ---
Patient encouraged to eat magic cup or drink ensure patient refused Stated I just don't want any more Magic cup left with patient
[2021-05-16] MEDS: budesonide 0.5 mg/2 mL Neb INHALATION ×2 (08:22→19:42)
[2021-05-16] MEDS: ipratropium-albuterol 3 mL Neb INHALATION ×4 (08:22→19:42)
[2021-05-16] MEDS: atorvastatin 40 mg Tablet 20 MG PO (09:50)
[2021-05-16] MEDS: aspirin 81 mg EC Tablet PO (09:50)
[2021-05-16] MEDS: potassium chloride ER 20 mEq Tablet PO (09:50)
[2021-05-16] MEDS: metoprolol tartrate 25 mg Tablet 12.5 MG PO ×2 (09:55→20:11)
--- NOTE | 2021-05-16 10:30 | PC.NURSE ---
After patient walked in nails with PT patient assisted with dressing and sat up in chair all needs within reach
--- NOTE | 2021-05-16 12:39 | PC.NURSE ---
Pt has low temp, nurse was informed of it
--- NOTE | 2021-05-16 14:01 | PC.NURSE ---
Calls from family members this shift with concerns for patient Family request to have a family meeting on Tuesday Dr Reveles notified
[2021-05-16] MEDS: vancomycin 1,250 MG/250 ML PIGGYBACK 250 MG IV (16:28)
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
--- NOTE | 2021-05-16 19:45 | PC.NURSE ---
Received bedside report from ROBBY Campoverde. Patient resting in bed watching tv. Continues to have lawrence catheter in place. Patient denies needs or pain at this time. No distress observed.
[2021-05-17] VITALS (16 sets, daily range): BP systolic 94–126; BP diastolic 48–74; PULSE 99–113; RESP 17–28; TEMP 36.4–36.8; O2SAT 90–95
[2021-05-17 03:51] LABS: Basophils # 0.1 10^3/uL (0.0-0.1); Basophils % 0.9 %; Eosinophils # 0.4 10^3/uL (0.0-0.8); Eosinophils % 4.6 %; Hematocrit 30.9 % (42.0-52.0); Lymphocytes # 0.8 10^3/uL (0.8-4.8); Lymphocytes % 9.9 %; Mean Corpuscular HGB Conc 32.4 g/dL (30.0-36.0); Mean Corpuscular Volume 92.8 fL (80-94); Monocytes # 0.9 10^3/uL (0.2-0.9); Monocytes % 11.6 %; Neutrophils # 5.48 10^3/uL (1.8-7.7); Neutrophils % 72.1 %; Nucleated Red Blood Cells % 0 %; Platelet Count 280 10^3/cmm (130-400); Red Blood Count 3.33 10^6/uL (4.1-5.3); Red Cell Distribution Width 14.8 % (12.1-15.1); White Blood Count 7.6 10^3/uL (4.0-10.0)
[2021-05-17] MEDS: enoxaparin 60 mg/0.6 mL Syringe 55 MG SUBCUT ×2 (04:04→14:18)
[2021-05-17] MEDS: famotidine 20 mg/2 mL INJ IVP ×2 (04:04→17:01)
[2021-05-17 04:20] LABS: Alanine Aminotransferase 49 U/L (0-41); Albumin Level 2.2 g/dL (3.5-5.2); Alkaline Phosphatase 81 IU/L (40-130); Anion Gap 10.3 (5-19); Aspartate Amino Transferase 125 U/L (0-40); Blood Urea Nitrogen 13 mg/dL (8-23); Calcium 7.2 mg/dL (8.5-10.5); Carbon Dioxide 21 mmol/L (22-29); Chloride 99 mmol/L (98-107); Globulin 3.9 g/dL (1.3-4.6); Glucose 101 mg/dL (65-115); Osmolality Calculated 264 mOsm/kg (285-295); Potassium 3.3 mmol/L (3.5-5.1); Sodium 127 mmol/L (136-145); Total Bilirubin 0.4 mg/dL (0.15-1.2); Total Protein 6.1 g/dL (6.6-8.7)
[2021-05-17] MEDS: cefepime 1,000 MG in sodium chloride 0.9% (plus) 100 ML 200 MG IV ×2 (07:56→21:17)
--- NOTE | 2021-05-17 07:56 | XRR_ITS ---
PROCEDURE INFORMATION: Exam: XR Chest Exam date and time: 05/17/2021 7:56 AM Age: 80 years old Clinical indication: Shortness of breath; Additional info: Hypoxia TECHNIQUE: Imaging protocol: XR of the chest. Views: 1 view. COMPARISON: CR XR chest 1V portable [id number] 05/14/2021 5:31 AM FINDINGS: Lungs: COPD, interstitial disease, chronic granulomatous disease. Extensive asymmetric right-sided airspace disease. Pleural spaces: Interval enlargement of right pleural effusion obscuring the inferior right heart border right hemidiaphragm. Heart/Mediastinum: No cardiomegaly. Bones/joints: Osteopenia and degenerative change. XR/XR chest 1V portable [id number] IMPRESSION: 1. Extensive asymmetric right-sided airspace disease. 2. Interval enlargement of right pleural effusion obscuring the inferior right heart border right hemidiaphragm.
[2021-05-17] MEDS: ferrous gluconate 324 mg Tablet PO (07:58)
[2021-05-17] MEDS: FUROsemide 10 mg/mL SDV 2mL 20 MG IVP ×2 (08:40→21:15)
[2021-05-17] MEDS: metoprolol tartrate 25 mg Tablet 12.5 MG PO ×2 (08:41→21:18)
[2021-05-17] MEDS: vancomycin 1,250 MG/250 ML PIGGYBACK 250 MG IV (08:41)
[2021-05-17] MEDS: atorvastatin 40 mg Tablet 20 MG PO (08:41)
[2021-05-17] MEDS: aspirin 81 mg EC Tablet PO (08:41)
[2021-05-17] MEDS: budesonide 0.5 mg/2 mL Neb INHALATION ×2 (09:39→21:59)
[2021-05-17] MEDS: ipratropium-albuterol 3 mL Neb INHALATION ×3 (09:39→21:59)
--- NOTE | 2021-05-17 11:24 | PC.SOCIAL ---
IMM UPDATE Gave patient IMM update. Provided copy of pg 2. 05/17/21 @ 1102. Initialed, dated, timed and placed in chart.
[2021-05-17] MEDS: ampicillin 2,000 MG in sodium chloride 0.9% (plus) 50 ML 100 MG IV (11:38)
--- NOTE | 2021-05-17 12:11 | PC.NURSE ---
Called received from [id number] Mirlande and brother Lizandro wanting to restrict visitors to the patient this nurse explaining to them we could not restricts visitors per their request asking about durable power of ip attorney papers and if the other family could have the patient sign it this nurse explaining to them paper work would have to be signed front of a notary to be legal this nurse listened to other concerns about family however did not offer up any other information
--- NOTE | 2021-05-17 14:21 | PC.NUTR ---
Nutrition reassessment: Nurse reports pt not drinking Ensure-confirmed with pt. States he will continue to try the magic up and will try pudding, likes to drink milk. Have added to diet. Notified Dr. Reveles of continued weight gain. Notified DEVELOPMENTAL THERAPIST Jolly of refusal of thickened liquids, per nursing. DEVELOPMENTAL THERAPIST states pt noncompliant and may have thin liquids. See full RD assessments for further details.
--- NOTE | 2021-05-17 18:55 | PC.NURSE ---
Received bedside report from ROBBY Campoverde. Patient resting with eyes closed. Arouses easily but goes right back to sleep. Patient lying right lateral. No distress observed.
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
[2021-05-17] MEDS: piperacillin-tazobactam 3.375 GM in sodium chloride 0.9% (plus) 50 ML IV (23:58)
[2021-05-18] VITALS (14 sets, daily range): BP systolic 93–120; BP diastolic 51–66; PULSE 93–116; RESP 18–26; TEMP 36.5–36.9; O2SAT 87–95
[2021-05-18 02:38] LABS: Basophils % 0.7 %; Eosinophils # 0.2 10^3/uL (0.0-0.8); Eosinophils % 4.3 %; Hematocrit 28.3 % (42.0-52.0); Hemoglobin 9.1 g/dL (11.7-16.6); Lymphocytes # 0.8 10^3/uL (0.8-4.8); Lymphocytes % 13.7 %; Mean Corpuscular HGB Conc 32.2 g/dL (30.0-36.0); Mean Corpuscular Hemoglobin 29.6 pg (28.0-34.0); Mean Corpuscular Volume 92.2 fL (80-94); Mean Platelet Volume 10.4 fL (7.4-10.4); Monocytes # 0.8 10^3/uL (0.2-0.9); Monocytes % 13.7 %; Neutrophils # 3.71 10^3/uL (1.8-7.7); Neutrophils % 66.9 %; Nucleated Red Blood Cells % 0 %; Platelet Count 260 10^3/cmm (130-400); Red Blood Count 3.07 10^6/uL (4.1-5.3); Red Cell Distribution Width 14.8 % (12.1-15.1); White Blood Count 5.6 10^3/uL (4.0-10.0)
[2021-05-18 03:15] LABS: Alanine Aminotransferase 39 U/L (0-41); Albumin Level 1.9 g/dL (3.5-5.2); Alkaline Phosphatase 70 IU/L (40-130); Anion Gap 13.1 (5-19); Aspartate Amino Transferase 114 U/L (0-40); Blood Urea Nitrogen 14 mg/dL (8-23); Carbon Dioxide 22 mmol/L (22-29); Chloride 103 mmol/L (98-107); Globulin 3.9 g/dL (1.3-4.6); Glucose 95 mg/dL (65-115); Osmolality Calculated 280 mOsm/kg (285-295); Potassium 3.1 mmol/L (3.5-5.1); Sodium 135 mmol/L (136-145); Total Bilirubin 0.4 mg/dL (0.15-1.2); Total Protein 5.8 g/dL (6.6-8.7)
[2021-05-18 03:28] LABS: Vancomycin Trough 22.3 ug/mL (10-15)
[2021-05-18] MEDS: vancomycin 1,250 MG/250 ML PIGGYBACK 250 MG IV (04:00)
[2021-05-18] MEDS: famotidine 20 mg/2 mL INJ IVP (04:00)
--- NOTE | 2021-05-18 04:09 | PC.NURSE ---
Vancomycin trough 22.3 this morning. Stopped and wasted dose of Vancomycin per Jonas in pharmacy.
--- NOTE | 2021-05-18 04:11 | PC.PHAR ---
Vancomycin trough is 22.3. Hold for 24 hours and resume at 1gm IVPB ever 24 hours with another trough before the fourth 1gm dose.
[2021-05-18] MEDS: piperacillin-tazobactam 3.375 GM in sodium chloride 0.9% (plus) 50 ML IV ×2 (05:40→18:43)
[2021-05-18] MEDS: ferrous gluconate 324 mg Tablet PO ×2 (08:56→17:14)
[2021-05-18] MEDS: atorvastatin 40 mg Tablet 20 MG PO (08:56)
[2021-05-18] MEDS: FUROsemide 10 mg/mL SDV 2mL 20 MG IVP ×2 (08:58→20:46)
[2021-05-18] MEDS: ipratropium-albuterol 3 mL Neb INHALATION ×3 (09:24→21:10)
[2021-05-18] MEDS: budesonide 0.5 mg/2 mL Neb INHALATION ×2 (09:24→21:09)
[2021-05-18] MEDS: metoprolol tartrate 25 mg Tablet 12.5 MG PO ×2 (09:27→20:43)
[2021-05-18] MEDS: aspirin 81 mg EC Tablet PO (09:27)
[2021-05-18] MEDS: potassium chloride oral liq 20 mEq/15 mL UDC 40 MEQ PO (09:44)
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
[2021-05-18 11:03] LABS: Magnesium 1.9 mg/dL (1.7-2.3)
[2021-05-18] MEDS: valproic acid inj 500 MG in sodium chloride 0.9% 50 ML 55 MG IV (17:06)
[2021-05-19] VITALS (14 sets, daily range): BP systolic 93–116; BP diastolic 56–61; PULSE 95–117; RESP 18–24; TEMP 36.6; O2SAT 80–97
[2021-05-19] MEDS: valproic acid inj 500 MG in sodium chloride 0.9% 50 ML 55 MG IV ×2 (01:54→09:53)
[2021-05-19] MEDS: piperacillin-tazobactam 3.375 GM in sodium chloride 0.9% (plus) 50 ML IV (02:55)
[2021-05-19 05:24] LABS: Basophils # 0.1 10^3/uL (0.0-0.1); Basophils % 0.9 %; Eosinophils # 0.4 10^3/uL (0.0-0.8); Eosinophils % 6.6 %; Hematocrit 30.9 % (42.0-52.0); Hemoglobin 9.7 g/dL (11.7-16.6); Lymphocytes # 0.9 10^3/uL (0.8-4.8); Lymphocytes % 15.8 %; Mean Corpuscular HGB Conc 31.4 g/dL (30.0-36.0); Mean Corpuscular Hemoglobin 29.8 pg (28.0-34.0); Mean Corpuscular Volume 94.8 fL (80-94); Mean Platelet Volume 9.5 fL (7.4-10.4); Monocytes # 0.7 10^3/uL (0.2-0.9); Monocytes % 13.3 %; Neutrophils # 3.36 10^3/uL (1.8-7.7); Neutrophils % 61.9 %; Nucleated Red Blood Cells % 0 %; Platelet Count 246 10^3/cmm (130-400); Red Blood Count 3.26 10^6/uL (4.1-5.3); Red Cell Distribution Width 14.9 % (12.1-15.1); White Blood Count 5.4 10^3/uL (4.0-10.0)
[2021-05-19 05:37] LABS: Alanine Aminotransferase 30 U/L (0-41); Alkaline Phosphatase 68 IU/L (40-130); Anion Gap 14.1 (5-19); Aspartate Amino Transferase 112 U/L (0-40); Blood Urea Nitrogen 16 mg/dL (8-23); Calcium 7.1 mg/dL (8.5-10.5); Carbon Dioxide 25 mmol/L (22-29); Chloride 100 mmol/L (98-107); Glucose 98 mg/dL (65-115); Osmolality Calculated 283 mOsm/kg (285-295); Potassium 3.1 mmol/L (3.5-5.1); Sodium 136 mmol/L (136-145); Total Bilirubin 0.4 mg/dL (0.15-1.2)
[2021-05-19] MEDS: ipratropium-albuterol 3 mL Neb INHALATION ×4 (07:35→19:56)
[2021-05-19] MEDS: budesonide 0.5 mg/2 mL Neb INHALATION ×2 (07:35→19:56)
[2021-05-19] MEDS: aspirin 81 mg EC Tablet PO (08:12)
[2021-05-19] MEDS: ferrous gluconate 324 mg Tablet PO (08:12)
[2021-05-19] MEDS: atorvastatin 40 mg Tablet 20 MG PO (08:12)
[2021-05-19] MEDS: FUROsemide 10 mg/mL SDV 2mL 20 MG IVP (08:13)
[2021-05-19] MEDS: metoprolol tartrate 25 mg Tablet 12.5 MG PO (08:13)
[2021-05-19] MEDS: potassium chloride oral liq 20 mEq/15 mL UDC 40 MEQ PO (08:13)
--- NOTE | 2021-05-19 09:42 | PC.NURSE ---
Spoke with Dr Sepulveda about potassium order ok to add 5 ml of lidocane 1% to potassium infusion
[2021-05-19] MEDS: lidocaine 1% INJ 20 mL 5 ML IV (09:53)
[2021-05-19] MEDS: potassium chloride premix 100 ML 25 MEQ IV (09:53)
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
--- NOTE | 2021-05-19 11:25 | PC.SOCIAL ---
IMM Update Pg. 2 of IMM updated and reviewed with patient and his brother and [id number]. Copy provided.
[2021-05-19] MEDS: morphine 4 mg/mL SDV 1 mL 2 MG IVP (14:19)
--- NOTE | 2021-05-19 15:42 | P.PCN_ITS ---
Procedure/Consent Time out: Time Out Performed: Yes Consent: Consent for Procedure: Consent obtained from patient, Consent obtained from other (indicate) (brother as well as he will make medical decisions as per patient), Risks & Benefits reviewed and Agrees to proceed with procedure Procedure Narrative: Name of the procedure: Right-sided Pleurx catheter placement Anesthesia: Morphine 2 mg iv given Local: 1% lidocaine 15 mL. Description of the procedure: The patient was placed in left lateral position. Using the ultrasound a safe fluid pocket was identified in the midaxillary line. The site was marked. The patient was then prepared using sterile technique. 1% lidocaine was used to anesthetize the skin and subcutaneous tissue periosteum and the pleural space was entered. Hemorrhagic fluid was aspirated. The introducer needle was then introduced into the pleural space. The guide wire was introduced and left in place. About 6 cm from the initial introduction site in the anterolateral chest wall a second incision was made. The pleural catheter was then tunneled under the skin with the help of a trocar. The initial site was then dilated and the Pleurx catheter was advanced into the ple ural space without any difficulty. The incision sites were sutured. There was good hemostasis. 1000 cc of hemorrhagic fluid was drained. Complications: Post procedure x-ray showed a right apical pneumothorax; Pleurx catheter connected to underwater suction and grade 1 air leak noted Follow-up: 1. The patient is planned to be discharged to hospice care; instructed to take out sutures in 10 days time or he can follow-up with me in clinic in 10 days time for removal of sutures. Acute Procedures Epistaxis Control: Time out performed: Yes
--- NOTE | 2021-05-19 15:47 | XR_ITS ---
WS: [id number] CHEST XRAY TECHNIQUE: Portable chest. CLINICAL INFORMATION: plurex drain placement COMPARISON: May 17, 2021 FINDINGS: Heart: Cardiomegaly Lungs: Right pleural drain placement in the right lower lobe. Small right apical and lateral pneumoth orax. This appears new or larger compared to previous. Diffuse airspace infiltrates throughout the right lung similar to previous. Compressive atelectasis r ight lower lobe has improved. Improved right pleural effusion. Moderate chronic emphysematous changes . Surgical clips base of the neck. XR/XR chest 1V [id number] IMPRESSION: 1. Interval placement of right pleural catheter in the right lower lobe. 2. New or progressed small right apical and lateral pneumothorax. Small amount of subcutaneous emphysema right lateral chest wall. Recommend interval follow- up chest radiograph 3. Diffuse pulmonary infiltrates throughout the right lung similar to previous . Compressive atelectasis right lower lobe has improved. 4. Improved right pleural effusion. Notified Triston Alicea MD at 05/19/2021 4:40 PM.
--- NOTE | 2021-05-19 17:53 | XRR_ITS ---
PROCEDURE INFORMATION: Exam: XR Chest Exam date and time: 05/19/2021 5:53 PM Age: 80 years old Clinical indication: Patient HX: F/u pneumothorax with right apical thoracic vent placement. ; Additional info: Follow up, please obtain xray at 2200 TECHNIQUE: Imaging protocol: XR of the chest. Views: 1 view. COMPARISON: GA XR chest 1V [id number] 05/19/2021 3:46 PM FINDINGS: Tubes, catheters and devices: Right pleural drain remains in place. Lungs: There is diffuse patchy infiltrate in the right lung not significant changed from previous. Visualized portions of the left lung remain clear. Pleural spaces: Right apical pneumothorax is not significantly changed from the examination done at 3:50 p.m.. Heart/Mediastinum: Unremarkable. No cardiomegaly. Bones/joints: Unremarkable. XR/XR chest 1V [id number] IMPRESSION: No recent change in pulmonary infiltrates or right apical pneumothorax.
--- NOTE | 2021-05-19 17:55 | PC.NURSE ---
Datar at bedside for placement of water seal verbal instructions received to obtain chest xray at 2200 and clamp chest tube then
[2021-05-20] MEDS: valproic acid inj 500 MG in sodium chloride 0.9% 50 ML 55 MG IV ×2 (02:07→10:51)
[2021-05-20 04:24] LABS: Basophils # 0.1 10^3/uL (0.0-0.1); Basophils % 0.7 %; Eosinophils # 0.2 10^3/uL (0.0-0.8); Eosinophils % 2.8 %; Hematocrit 31.4 % (42.0-52.0); Lymphocytes # 0.9 10^3/uL (0.8-4.8); Lymphocytes % 12.8 %; Mean Corpuscular HGB Conc 31.8 g/dL (30.0-36.0); Mean Corpuscular Hemoglobin 29.9 pg (28.0-34.0); Mean Corpuscular Volume 93.7 fL (80-94); Mean Platelet Volume 10.8 fL (7.4-10.4); Monocytes # 0.6 10^3/uL (0.2-0.9); Monocytes % 8.5 %; Neutrophils # 5.05 10^3/uL (1.8-7.7); Neutrophils % 74.5 %; Nucleated Red Blood Cells % 0 %; Platelet Count 245 10^3/cmm (130-400); Red Blood Count 3.35 10^6/uL (4.1-5.3); Red Cell Distribution Width 15.2 % (12.1-15.1); White Blood Count 6.8 10^3/uL (4.0-10.0)
[2021-05-20 04:36] LABS: Alanine Aminotransferase 28 U/L (0-41); Alkaline Phosphatase 70 IU/L (40-130); Anion Gap 13.7 (5-19); Aspartate Amino Transferase 106 U/L (0-40); Blood Urea Nitrogen 22 mg/dL (8-23); Calcium 7.4 mg/dL (8.5-10.5); Carbon Dioxide 23 mmol/L (22-29); Chloride 105 mmol/L (98-107); Globulin 4.1 g/dL (1.3-4.6); Glucose 92 mg/dL (65-115); Osmolality Calculated 289 mOsm/kg (285-295); Potassium 3.7 mmol/L (3.5-5.1); Sodium 138 mmol/L (136-145); Total Bilirubin 0.3 mg/dL (0.15-1.2); Total Protein 6.1 g/dL (6.6-8.7)
[2021-05-20 04:45] LABS: Slide Review Slide Review Perform
--- NOTE | 2021-05-20 05:00 | XR_ITS ---
WS: [id number] Exam: XR chest 1V portable [id number] Date/Time of Exam: 05/20/2021 5:25 AM Reason For Exam: follow up on pneumothorax Comparison 05/19/2021. Extensive right pulmonary infiltrates show little change. The left lung is clear. Previously noted ri ght upper lobe pneumothorax appears to have resolved. A right-sided thoracostomy tube is unchanged in location. No pleural effusion. Heart size is within normal limits for technique. Regional bony struc tures appear normal. XR/XR chest 1V portable [id number] IMPRESSION: 1. Right pulmonary infiltrates unchanged. 2. Resolved right upper lobe pneumothorax since prior study. Right-sided chest tube unchanged in location.
[2021-05-20 05:11] VITALS: PULSE 104
[2021-05-20 08:35] VITALS: PULSE 118; RESP 18; O2SAT 92
[2021-05-20] MEDS: budesonide 0.5 mg/2 mL Neb INHALATION (08:47)
[2021-05-20] MEDS: ipratropium-albuterol 3 mL Neb INHALATION (08:47)
[2021-05-20 08:55] VITALS: PULSE 116
--- NOTE | 2021-05-20 08:56 | P.PN_ITS ---
Subjective Subjective: Interval history: Mr. leigh pleural fluid analysis from 05/11/2021 cytology showed poorly differentiated adenocarcinoma. Patient is still on and off with his mentation. Patient wanted his brother to make medical decisions. After discussion with the brother at bedside, they opted for comfort care/hospice. Meanwhile his oxygen requirements went up to 5 L and bedside ultrasound showed reaccumulation of pleural fluid. Hence Pleurx catheter was inserted on right side as palliative measure. Drained total of 1000 cc and postprocedure x-ray showed new vs worsening pneumothorax (retrospectively 05/17/2021 chest x-ray showed minimal right apical pneumothorax). Pleurx catheter was connected to suction for about 6 hours and drained further 700 cc. Repeat chest x-ray showed persistent right apical pneumothorax even after connecting to suction. With suspicion for trapped lung, chest tube was clamped overnight and chest x-ray in the am -significant improvement in pneumothorax. Quite possible there might be some air accumulation from outside while inserting the Pleurx catheter. Pt.is comfortable at bedside. and we will plan to discharge. Medications: Reviewed: Yes Vitals/I&O/Wt Last Vital Signs Temp 97.9 F 05/19/21 08:00 Pulse 116 H 05/20/21 08:55 Resp 18 05/20/21 08:35 BP 93/61 05/19/21 08:00 Pulse Ox 92 05/20/21 08:35 05/19/21 05/20/21 05/20/21 22:59 06:59 14:59 Intake Total 100 / 745 55 / 800 Output Total 1825 / 2825 125 / 2950 Balance -1725 / -2080 -70 / -2150 Weight last 48 hrs Weight 128 lb 14.4 oz Weight 145 lb 1.6 oz Physical Exam Narrative: EXAM NARRATIVE: General: alert, NAD HEENT: conj clear, EOMI, PERRL, mmm, Neck: supple, no meningismus Heme: no cervical LAP Pulmonary: improved breath sounds on right lower lung, right-side Pleurx catheter in place Cardiovascular: rrr, nl s1s2, no mrg Abdomen: soft, nt, nd, no r/g, bs+ Extremities: pulses +, no edema, no c/c : no CVA tenderness Skin: intact, no rash MSK: no back or neck pain Neurologic: grossly intact Urinary Catheter Management^: Dela Cruz: Cath Placed During This Visit: yes, but has since been removed by the nurse Reason for Continuing Indwelling Catheter: Accurate Measurement of Urinary Output in Critically Ill Patients Urinary Catheter Date of Insertion: 05/10/21 Urinary Catheter Time of Insertion: 00:05 Date Urinary Catheter Removed: 05/09/21 Time Urinary Catheter Discontinued: 15:00 Data : 05/20/21 03:03 05/20/21 03:03 Other Labs: Laboratory Results WBC 6.8 10^3/uL (4.0-10.0) 05/20/21 03:03 RBC 3.35 10^6/uL (4.1-5.3) L 05/20/21 03:03 Hgb 10.0 g/dL (11.7-16.6) L 05/20/21 03:03 Hct 31.4 % (42.0-52.0) L 05/20/21 03:03 MCV 93.7 fL (80-94) 05/20/21 03:03 MCH 29.9 pg (28.0-34.0) 05/20/21 03:03 MCHC 31.8 g/dL (30.0-36.0) 05/20/21 03:03 RDW 15.2 % (12.1-15.1) H 05/20/21 03:03 Plt Count 245 10^3/cmm (130-400) 05/20/21 03:03 MPV 10.8 fL (7.4-10.4) H 05/20/21 03:03 Neut % (Auto) 74.5 % 05/20/21 03:03 Lymph % (Auto) 12.8 % 05/20/21 03:03 [place] % (Auto) 8.5 % 05/20/21 03:03 Eos % (Auto) 2.8 % 05/20/21 03:03 Baso % (Auto) 0.7 % 05/20/21 03:03 Neut # (Auto) 5.05 10^3/uL (1.8-7.7) 05/20/21 03:03 Lymph # (Auto) 0.9 10^3/uL (0.8-4.8) 05/20/21 03:03 [place] # (Auto) 0.6 10^3/uL (0.2-0.9) 05/20/21 03:03 Eos # (Auto) 0.2 10^3/uL (0.0-0.8) 05/20/21 03:03 Baso # (Auto) 0.1 10^3/uL (0.0-0.1) 05/20/21 03:03 Nucleated RBC % (auto) 0 % 05/20/21 03:03 Nucleated RBCs # 0.0 /100WBC 05/20/21 03:03 Fibrinogen 163 mg/dL (174-498) L 05/06/21 14:11 D-Dimer >= 20.00 ug/mIFEU (0-0.59) H 05/06/21 14:11 Specimen Type Arterial 05/06/21 10:42 Sample Site Brachial, right 05/06/21 10:42 ABG pH 7.39 (7.35-7.45) 05/06/21 10:42 ABG pCO2 27.9 mmHg (35-45) L 05/06/21 10:42 ABG pO2 59.6 mmHg (80.0-100.0) L 05/06/21 10:42 ABG HCO3 17.0 mmol/L (22-26) L 05/06/21 10:42 ABG O2 Saturation 90.1 05/06/21 10:42 ABG Base Excess -6.5 mmol/L (-2.0-2.0) L 05/06/21 10:42 Agustín Test N/a 05/06/21 10:42 A-a O2 Gradient 7.2 mmHg (5-10) 05/06/21 10:42 Hematocrit 38.8 % (42-52) L 05/06/21 10:42 Hgb O2 Saturation 88.6 % (95-100) L 05/06/21 10:42 Carboxyhemoglobin 1.0 %THgb (0.4-20.1) 05/06/21 10:42 Methemoglobin 0.6 % (0.4-1.5) 05/06/21 10:42 Total Hemoglobin 12.6 g/dL (14-18) L 05/06/21 10:42 Sodium 139.0 mmol/L (131-143) 05/06/21 10:42 Potassium 3.9 mmol/L (3.5-5.0) 05/06/21 10:42 Glucose 120.0 mg/dL (70-115) H 05/06/21 10:42 Ionized Calcium 1.1 mmol/L (1.1-1.4) 05/06/21 10:42 O2 Delivery Device Room air 05/06/21 10:42 FiO2 21.0 % 05/06/21 10:42 Network Account Manager ID Amh 05/06/21 10:42 Sodium 138 mmol/L (136-145) 05/20/21 03:03 Potassium 3.7 mmol/L (3.5-5.1) 05/20/21 03:03 Chloride 105 mmol/L (98-107) 05/20/21 03:03 Carbon Dioxide 23 mmol/L (22-29) 05/20/21 03:03 Anion Gap 13.7 (5-19) 05/20/21 03:03 BUN 22 mg/dL (8-23) 05/20/21 03:03 Creatinine 1.1 mg/dL (0.7-1.2) 05/20/21 03:03 GFR Calculation Not Reportable 05/20/21 03:03 Glucose 92 mg/dL (65-115) 05/20/21 03:03 Estimat Average Glucose 94 05/07/21 05:20 Hemoglobin A1c 4.9 % (4.0-6.0) 05/07/21 05:20 Calculated Osmolality 289 mOsm/kg (285-295) 05/20/21 03:03 Lactic Acid 2.3 mmol/L (0.5-2.2) H 05/06/21 10:26 Lactic Acid (Sepsis) 1.4 mmol/L (0.5-2.2) 05/06/21 14:11 Calcium 7.4 mg/dL (8.5-10.5) L 05/20/21 03:03 Magnesium 1.9 mg/dL (1.7-2.3) 05/18/21 01:58 Iron 23 ug/dL (59-158) L 05/06/21 14:11 TIBC 167 mcg/dl 05/06/21 14:11 % Saturation 13.7 % (20-50) L 05/06/21 14:11 Unsat Iron Binding 144 ug/dL (112-347) 05/06/21 14:11 Ferritin 2500 ng/mL (30-400) H 05/06/21 14:11 Total Bilirubin 0.3 mg/dL (0.15-1.2) 05/20/21 03:03 AST 106 U/L (0-40) H 05/20/21 03:03 ALT 28 U/L (0-41) 05/20/21 03:03 Alkaline Phosphatase 70 IU/L (40-130) 05/20/21 03:03 Lactate Dehydrogenase 282 U/L (135-225) H 05/06/21 14:11 Creatine Kinase 65 U/L (39-308) 05/06/21 14:11 Troponin T Baseline 677 ng/L (0-15) H* 05/06/21 10:26 Troponin T 120 Minute 633.6 ng/L (0-15) H 05/06/21 12:28 Delta Troponin T -43.4 ABS# (0-10) L 05/06/21 12:28 Troponin T Hi Sens 6Hr 476.5 ng/L (0-15) H 05/06/21 16:30 Troponin T Hi Sens 6Hr Delta -200.5 ng/L (0-12) L 05/06/21 16:30 C-Reactive Protein 74.5 mg/L (0.0-4.9) H 05/06/21 14:11 NT-Pro-B Natriuret Pep 774 pg/mL (0-450) H 05/06/21 14:11 Total Protein 6.1 g/dL (6.6-8.7) L 05/20/21 03:03 Albumin 2.0 g/dL (3.5-5.2) L 05/20/21 03:03 Globulin 4.1 g/dL (1.3-4.6) 05/20/21 03:03 Triglycerides 125 mg/dL (0-150) 05/07/21 05:20 Cholesterol 129 mg/dL (0-200) 05/07/21 05:20 LDL Cholesterol, Calc 76 mg/dL (50-129) 05/07/21 05:20 Total VLDL Cholesterol 25 mg/dL (0-30) 05/07/21 05:20 HDL Cholesterol 28 mg/dL (60-100) L 05/07/21 05:20 Cholesterol/HDL Ratio 4.61 mg/dL (1.0-5.00) 05/07/21 05:20 Lipase 96 U/L (13-60) H 05/06/21 10:26 Prostate Specific Ag 0.882 ng/mL (0-4) 05/06/21 14:11 Procalcitonin 67.43 ng/mL (0-0.5) H 05/08/21 06:46 TSH 4.02 uIU/mL (0.27-4.20) 05/06/21 14:11 Urine Color Yellow (Yellow) 05/06/21 12:30 Urine Appearance Clear (CLEAR) 05/06/21 12:30 Urine pH 5 (5-7) 05/06/21 12:30 Ur Specific [place] 1.020 (1.005-1.030) 05/06/21 12:30 Urine Protein Trace (Negative) 05/06/21 12:30 Urine Glucose (UA) Norm (Normal) 05/06/21 12:30 Urine Ketones 1+ (Negative) H 05/06/21 12:30 Urine Blood 3+ (Negative) H 05/06/21 12:30 Urine Nitrate Positive (Negative) H 05/06/21 12:30 Urine Bilirubin Neg (Negative) 05/06/21 12:30 Urine Urobilinogen Norm mg/dL (Negative) 05/06/21 12:30 Ur Leukocyte Esterase 1+ (Negative) H 05/06/21 12:30 Urine RBC 5-10 /hpf (0-2) H 05/06/21 12:30 Urine WBC 0-4 /hpf (0-5) H 05/06/21 12:30 Ur Squamous Epith Cells 0-4 /hpf (0-5) H 05/06/21 12:30 Amorphous Sediment Not Reportable 05/06/21 12:30 Urine Bacteria 3+ /hpf (NONE) H 05/06/21 12:30 Ur Random Sodium 47 mmol/L 05/06/21 12:30 Ur Random Potassium 37 mmol/L 05/06/21 12:30 Ur Random Chloride 19 mmol/L 05/06/21 12:30 Urine Creatinine 179 mg/dL (39-259) 05/06/21 12:30 Fluid Color Red 05/11/21 10:55 Fluid Appearance Cloudy 05/11/21 10:55 Fluid Specific Grav 1.010 05/11/21 10:55 Fluid pH 8.0 05/11/21 10:55 Fluid WBC 5409 /uL 05/11/21 10:55 Fluid RBC 38.000 10^3/uL 05/11/21 10:55 Fld Polynuclear WBCs # 3.291 05/11/21 10:55 Fld Polynuclear WBCs % 60.800 % 05/11/21 10:55 Fl Mononucl WBCs #(Auto) 2.118 05/11/21 10:55 Fl Mononuclear % Auto 39.200 % 05/11/21 10:55 Fluid Glucose 104.0 mg/dL 05/11/21 10:55 Fluid Albumin 1.6 g/dL 05/11/21 10:55 Fluid LDH 501 U/L 05/11/21 10:55 Fluid Amylase 40 U/L 05/11/21 10:55 Fluid Alk Phosphatase 304 IU/L 05/11/21 10:55 Fluid Cholesterol 46 mg/dL (0-200) 05/11/21 10:55 Fluid Triglycerides 18 mg/dL (0-150) 05/11/21 10:55 Fluid Uric Acid 6 mg/dL 05/11/21 10:55 Pleural Total Protein 4.0 g/dL 05/11/21 10:55 Vancomycin Trough 22.3 ug/mL (10-15) H 05/18/21 01:58 Urine Opiates Screen Negative ng/mL (Negative) 05/06/21 12:30 Ur Barbiturates Screen Negative ng/mL (Negative) 05/06/21 12:30 Ur Phencyclidine Scrn Negative ng/mL (Negative) 05/06/21 12:30 Ur Amphetamines Screen Negative ng/mL (Negative) 05/06/21 12:30 U Benzodiazepines Scrn Negative ng/mL (Negative) 05/06/21 12:30 Urine Cocaine Screen Negative ng/mL (Negative) 05/06/21 12:30 U Marijuana (THC) Screen Negative ng/mL (Negative) 05/06/21 12:30 Serum Ketones Negative (Negative) 05/06/21 10:26 Leuk/Lym Spec Type Cancelled 05/11/21 06:46 Leuk/Lym Clinical Info Cancelled 05/11/21 06:46 Leuk/Lymph Viability Cancelled 05/11/21 06:46 Leuk/Lym Sample Descrip Cancelled 05/11/21 06:46 Leuk/Lym # of Markers Cancelled 05/11/21 06:46 Leuk/Lym Markers Cancelled 05/11/21 06:46 Leuk/Lym Gating Strategy Cancelled 05/11/21 06:46 Leuk/Lym Interpretation Cancelled 05/11/21 06:46 Nasal/Oral COVID-19 PCR Not detected 05/06/21 18:00 Influenza Type A Ag Negative (Negative) 05/06/21 18:11 Influenza Type B Ag Negative (Negative) 05/06/21 18:11 SARS-CoV-2 Ag (Rapid) Negative (Negative) 05/06/21 18:00 TB (QFT) Gold In Tube Negative (NEGATIVE) 05/08/21 16:23 TB Test (QFT) Nil 0.01 IU/mL 05/08/21 16:23 TB Test (QFT) Mitogen 9.42 IU/mL 05/08/21 16:23 TB Test Mitogen - Nil 0.00 IU/mL 05/08/21 16:23 TB Test TB - Nil 0.00 IU/mL 05/08/21 16:23 Misc Test Reference See scanned lab rpt 05/11/21 11:10 Impressions Abdomen/Pelvis CT 05/06/21 11:25 IMPRESSION: 1. Markedly distended urinary bladder with contrast. Mild enlargement of the prostate measuring 4 cm. 2. Noncontrast kidneys are normal in appearance. No retained contrast in the kidneys or ureters. No obstructing renal or ureteral calculi. 3. Stable 2.7 cm left renal cyst. 4. Stable infrarenal abdominal aortic aneurysm measuring 3.4 x 3.6 CM. 5. Small right pleural effusion with patchy infiltrates in right lower lobe unchanged from previous. Recommend Correlation for pneumonia. Chest CTA 05/08/21 08:46 IMPRESSION: 1. Since the prior study development of anasarca and fluid overload. 2. Development of a moderate-sized RIGHT pleural effusion with compressive atelectasis of the RIGHT lower lobe and partial atelectasis RIGHT upper and RIGHT middle lobes. 3. LEFT axillary, mediastinal and hilar lymphadenopathy. Increased soft tissue at the RIGHT hilum. Adenopathy or mass not excluded. Recommend bronchoscopy for further evaluation. 4. Diffuse soft tissue edema and interstitial thickening throughout the RIGHT lung. 5. Indeterminate lymph nodes at the celiac axis and SMA. 6. No pulmonary embolism. 7. Small pericardial effusion. Head CT 05/13/21 19:00 IMPRESSION: No evidence of intracranial metastatic disease. No acute intracranial abnormality. Radiation Dose CTDIVOL = (mGy): DLP = 1301.71 (mGy-cm) Modified Barium Swallow 05/15/21 09:00 IMPRESSION: 1. Markedly delayed oropharyngeal phase with decreased palatal contractility. 2. Persistent sustained pooling in the vallecula 3. No evidence of eb aspiration or significant penetration. Chest X-Ray 05/20/21 05:00 IMPRESSION: 1. Right pulmonary infiltrates unchanged. 2. Resolved right upper lobe pneumothorax since prior study. Right-sided chest tube unchanged in location. A&P Assessment and plan (1) Hospice care: Status: Acute (2) Adenocarcinoma of lung, stage 4: Status: Acute Qualifiers: Laterality: right Qualified Code(s): C34.91 - Malignant neoplasm of unspecified part of right bronchus or lung (3) LUCRECIA (acute kidney injury): Status: Acute (4) Lymphadenopathy, axillary: Status: Acute (5) Lymphadenopathy, mediastinal: Status: Acute (6) DVT of lower extremity (deep venous thrombosis): Status: Acute Qualifiers: Affected thrombotic vein of extremity: popliteal Chronicity: acute Laterality: right Qualified Code(s): I82.431 - Acute embolism and thrombosis of right popliteal vein (7) Recurrent right pleural effusion: Status: Acute (8) Malignant pleural effusion: Status: Acute Overall: 80-year-old male admitted with altered mental status, nausea, vomiting, diarrhea found to require 2 L oxygen and UA revealing UTI, MRSA nares positive, lower extremity Doppler positive for acute DVT involving right popliteal and proximal posterior tibial vein causing total occlusion, CT chest, showing moderate pleural effusion with compressive atelectasis of the RIGHT lower lobe and parti al atelectasis RIGHT upper and RIGHT middle lobes, LEFT axillary, mediastinal and hilar lymphadenopathy. Increased soft tissue at the RIGHT hilum. -Moderate right pleural effusion on CT and bedside ultrasound-looks uncomplicated with no loculations-parapneumonic vs malignant; - s/p thoracentesis 05/11/2021-drained 1500 cc hemorrhagic fluid; exudative WBC 5400 pH 8.0 40% lymphocytes and 60% neutrophils - Pleural fluid cytology positive for malignancy and IHC stains Suggestive of a poorly differentiated primary lung adenocarcinoma ; Suggestive of Stage 4 malignancy -Altered mental status likely secondary to sepsis UTI/pneumonia-Waxing and waning -CT head: No evidence of intracranial metastatic disease. -Patient requiring 5L nasal cannula-saturating 95%-appears comfortable -Patient wanted brother to make medical decisions for him and after discussing with brother - Physician was made to discharge patient to [facility] and placed on Hospice for comfort measures only -Due to Recurrent pleural effusion-Pleurx catheter was inserted On 05/19/2021 and drained 1700 cc fluid. Post procedure there was a small Right apical pneumothorax which resolved after connecting to suction. - He was discharged with instructions to drain once in every 2 to 3 days Medical condition and plan of care explained to patient And brother in detail. They verbalized understanding and agreed with the plan Recommendations conveyed to hospitalist, RN, taking care of the patient. At this point I am signing off the case Attestations Medical Necessity Statement*: Patient is for discharge to [facility] for [facility] Time Spent in Patient Care: 16 - 35 minutes Coding Level of Care Code Established Pt Acute Special Delivery Mail Carrier for Chg Fwd Patient Type Established History Comprehensive Exam Comprehensive Medical Decision Making Low Complexity Diagnoses Hospice care Z51.5 Adenocarcinoma of lung, stage 4 C34.91 Laterality: right LUCRECIA (acute kidney injury) N17.9 Lymphadenopathy, axillary R59.0 Lymphadenopathy, mediastinal R59.0 DVT of lower extremity (deep venous thrombosis) I82.431 Affected thrombotic vein of extremity: popliteal Chronicity: acute Laterality: right Recurrent right pleural effusion J90 Malignant pleural effusion J91.0 Time Spent (min) 20
[2021-05-20] MEDS: potassium chloride oral liq 20 mEq/15 mL UDC 40 MEQ PO (10:51)
[2021-05-20] MEDS: aspirin 81 mg EC Tablet PO (10:51)
[2021-05-21 08:01] LABS: PD-L1 (Clone 22C3) by IHC BBPL See Report
[2021-05-25 10:41] LABS: Miscellaneous Test See Scanned Lab Rpt
== END 2021-05-20 14:55 | disposition hospice, inpatient (51) | DRG 871 ==
LOC: ER 10:10 → CSU 14:10
PROVIDERS: Internal Medicine; Internal Medicine Pulmonary Disease; Admitting Provider Student in an Organized Health Care Education/Training Program; Emergency Provider Family Medicine; PCP Internal Medicine; Visit Provider Internal Medicine
DX: A41.9 Sepsis, unspecified organism (principal); G93.41 Metabolic encephalopathy; J96.01 Acute respiratory failure with hypoxia; J15.211 Pneumonia due to Methicillin susceptible Staphylococcus aureus; C34.91 Malignant neoplasm of unspecified part of right bronchus or lung; J91.0 Malignant pleural effusion; N39.0 Urinary tract infection, site not specified; N17.9 Acute kidney failure, unspecified; I82.431 Acute embolism and thrombosis of right popliteal vein; E87.2 Acidosis; I31.3 Pericardial effusion (noninflammatory); I24.8 Other forms of acute ischemic heart disease; J93.83 Other pneumothorax; R65.20 Severe sepsis without septic shock; E87.6 Hypokalemia; N40.1 Benign prostatic hyperplasia with lower urinary tract symptoms; R33.8 Other retention of urine; R31.9 Hematuria, unspecified; E78.5 Hyperlipidemia, unspecified; I71.4 Abdominal aortic aneurysm, without rupture; I10 Essential (primary) hypertension; Z87.891 Personal history of nicotine dependence; Z66 Do not resuscitate; Z22.322 Carrier or suspected carrier of Methicillin resistant Staphylococcus aureus; Z86.73 Personal history of transient ischemic attack (TIA), and cerebral infarction without residual deficits
CPT/HCPCS: 36415; 36600; 51702; 51798; 70450; 70470; 71045; 71275; 74176; 74230; 80051; 80053; 80061; 80202; 80306; 80500; 81001; 82009; 82042; 82150; 82330; 82436; 82465; 82550; 82570; 82728; 82805; 82945; 83036; 83540; 83550; 83605; 83615; 83690; 83735; 83880; 83986; 84075; 84133; 84145; 84153; 84157; 84300; 84315; 84443; 84478; 84484; 84560; 85025; 85378; 85384; 86140; 86403; 86480; 87015; 87040; 87070; 87075; 87077; 87086; 87116; 87186; 87205; 87206; 87426; 87449; 87635; 87641; 87801; 87804; 88112; 88184; 88185; 88305; 88342; 89050; 92526; 92610; 92611; 93005; 93308; 93325; 93970; 94640; 94664; 96361; 96365; 96372; 97116; 97161; 97530; 99285; C1729; J0290; J0692; J0696; J1644; J1650; J1940; J1956; J2270; J2543; J3370; J3475; J3480; J3490; J7030; J7050; J7626; Q0144; Q9967